=== PATIENT | male | born 1940 | race Caucasian/White ===

== ENCOUNTER 2017-10-17 12:35 | Inpatient (IN) | payer OTHER, MEDICARE ==
[~2017-10-17] VITALS: Ht 180.3 cm; Wt 74.8 kg
[~2017-10-17 12:35] MED LIST: NAPROXEN500 M2 PO; TYLENOL WITH C1 EACH PO
[2017-10-17] MEDS ORDERED: ATORVASTATIN CA10 M1 PO (13:08)
[2017-10-17] MEDS ORDERED: NEURONTIN300 M1 PO (13:08)
[2017-10-17] MEDS ORDERED: TOPROL XL25 M1 PO (13:09)
--- NOTE | 2017-10-17 13:22 | ED GENERAL ADULT ---
History of Present Illness General Chief Complaint: General Adult Stated Complaint: BIBA, HYPOTENTION Source: patient Exam Limitations: no limitations Vital Signs & Intake/Output Vital Signs & Intake/Output Vital Signs Date Time Temp Pulse Resp B/P B/P Pulse O2 O2 Flow FiO2 Mean Ox Delivery Rate 10/20 1451 99.3 68 18 158/74 90 Room Air 10/20 1352 99.5 77 20 152/60 10/20 1058 Room Air 10/20 0806 77 152/60 10/20 0630 99.5 77 20 152/60 96 10/19 2201 99.1 81 16 159/90 97 ED Intake and Output 10/20 0000 10/19 1200 Intake Total 650 200 Output Total 350 675 Balance 300 -475 Intake, Oral 650 200 Output, Urine 350 675 Allergies Coded Allergies: No Known Allergies (04/22/16) Triage Note: PT BIBA FROM HOME OF A FRIEND. PT STATES HE HAD TRIPLE A REPAIR ON 09/27/17. [facility] [place] Y[place]ER[place]. STATES THE [facility] CAME OUT TODAY AND HIS BP WAS 70. PT STATES HE WAS DIZZY AT THE TIME. PT IS NORMOTENSIVE AT THIS TIME Triage Nurses Notes Reviewed? yes Onset: Abrupt Duration: day(s): Timing: recent history Injury Environment: home No Modifying Factors: none HPI: 77-year-old male comes into the emergency room for further evaluation of increased confusion and inability to ambulate. Patient has been feeling lightheaded and dizzy at home. Patient is postop [facility]. He has had back pain issues prior to the surgery reports increased back pain since the surgery. He denies any chest pain or shortness of breath or vomiting. History of chronic kidney disease. The noticed that he seems to be increasingly confused lately. (Cas Prajapati) Reconcile Medications Atorvastatin Calcium 10 MG TABLET 0.5 TAB PO DAILY CHOLESTEROL (Reported) Ferrous Sulfate 325 MG (65 MG IRON) TABLET 1 TAB PO BID ELYSSA Folic Acid 1 MG TABLET 1 TAB PO DAILY Low folic acid Gabapentin (Neurontin) 300 MG CAPSULE 1 CAP PO BID NEUROPATHY (Reported) Lidocaine (Lidoderm) 5 % ADH..PATCH 1 PAT EXT DAILY BACK PAIN Metoprolol Succ XL (Toprol Xl) 50 MG TAB 50 MG PO DAILY blood pressure Midodrine HCl 5 MG TABLET 1 TAB PO DAILY orhtostatic Tramadol HCl 50 MG TABLET 1 TAB PO TIDPRN Back pain (Mame FLOREZ,Anand Voss) Past History Travel History Traveled to [place] past 21 day No Medical History Any Pertinent Medical History? 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 No (Cas Prajapati) Review of Systems Review of Systems Constitutional: Reports: no symptoms. EENTM: Reports: no symptoms. Respiratory: Reports: no symptoms. Cardiovascular: Reports: no symptoms. GI: Reports: no symptoms. Genitourinary: Reports: no symptoms. Musculoskeletal: Reports: see HPI. Skin: Reports: no symptoms. Neurological/Psychological: Reports: no symptoms. Hematologic/Endocrine: Reports: no symptoms. Immunologic/Allergic: Reports: no symptoms. All Other Systems: Reviewed and Negative (Cas Prajapati) Physical Exam Physical Exam General Appearance: well developed/nourished, no apparent distress, alert, awake Head: atraumatic, normal appearance Eyes: Bilateral: normal appearance, EOMI. Ears, Nose, Throat: normal ENT inspection, hearing grossly normal Neck: normal inspection Respiratory: normal breath sounds, no respiratory distress Cardiovascular: regular rate/rhythm Gastrointestinal: soft Back: normal inspection Extremities: normal inspection Neurologic/Psych: awake, alert, oriented x 3 Skin: intact, normal color Core Measures ACS in differential dx? No CVA/TIA Diagnosis: No Sepsis Present: No Sepsis Focused Exam Completed? No (Cas Prajapati) Progress Differential Diagnoses I considered the following diagnoses in my evaluation of the patient: CVA, TIA, cardiac arrhythmia, dehydration, endoleak from aortic aneurysm, electrolyte imbalance, cerebellar infarct, Plan of Care: Orders Procedure Date/time Status Therapeutic Activities 10/20 UNK Complete Therapeutic Exercise 10/20 UNK Complete Discharge Patient 10/20 UNK Active Laboratory Tests 10/20/17 0611: Anion Gap 11, Estimated GFR 28 L, BUN/Creatinine Ratio 18.7, CBC w Diff NO MAN DIFF REQ, RBC 3.17 L, MCV 82.1, MCH 27.1, MCHC 33.0, RDW 15.2 H, MPV 9.3, Gran % 68.6, Lymphocytes % 16.8 L, Monocytes % 10.7 H, Eosinophils % 3.5, Basophils % 0.4, Absolute Granulocytes 5.9, Absolute Lymphocytes 1.5, Absolute Monocytes 0.9 H, Absolute Eosinophils 0.3, Absolute Basophils 0 Diagnostic Imaging: Viewed by Me: CT Scan. Discussed w/RAD: CT Scan. Radiology Impression: PATIENT: PILI LINDSEY PRESENT AGE: 77 PATIENT ACCOUNT NO: [id number] : 39 LOCATION: [facility] ORDERING PHYSICIAN: Cas BOND SERVICE DATE: 10/17/17 EXAM TYPE: CAT - CT ABD & PELVIS W/O IV CONTRAS EXAMINATION: CT ABDOMEN AND PELVIS WITHOUT CONTRAST CLINICAL INFORMATION: Back pain. Recent surgery for abdominal aneurysm. History of appendectomy. COMPARISON: CT abdomen and pelvis 04/22/2016. TECHNIQUE : Multidetector volumetric imaging was performed from the superior aspect of the liver through the pubic symphysis. Sagittal and coronal reformatted images were obtained on the technologist's workstation. DLP: 291.97 mGy-cm FINDINGS: LUNG BASES: The visualized lung bases are unremarkable. LIVER, GALLBLADDER, AND BILIARY TREE: Stable left lobe hepatic cyst measuring 1.7 cm. No intrahepatic bile duct dilatation. Status post cholecystectomy. PANCREAS: Pancreatic atrophy. No inflammation or mass. No pancreatic duct dilatation. SPLEEN: Unremarkable. ADRENAL GLANDS: Unremarkable. KIDNEYS AND URETERS: Multiple renal cysts. Largest cyst at the upper pole of the right kidney measuring 5 cm. There is a pedunculated cyst at the mid upper pole measuring 1 cm. At the lower pole, there is a cortical cyst measuring 1.6 cm. There are vascular calcifications in the right and left renal sussy without calculus. No hydronephrosis. BLADDER: Unremarkable. GASTROINTESTINAL TRACT: There is diverticulosis of the left colon and sigmoid. No diverticulitis. No acute change of the bowel. No bowel obstruction. No bowel wall thickening or edema. Moderate volume of scattered stool in the colon. The appendix is not seen. The small bowel loops are unremarkable. ABDOMINAL WALL: No significant hernia is appreciated. LYMPH NODES: Normal. VASCULAR: Atherosclerotic vascular wall calcifications of the aorta and iliac vessels. There is a large fusiform aneurysm of aorta and aneurysm of the common iliac arteries. The aorta has been previously stented. There is a previous stent in the aorta seen on the CT scan of 04/22/[address] The patient has had a secondary stent now placed within the first stent in the aorta. There are also now stents in the SMA and in the right and left renal artery origins. The abdominal aorta has a maximal transverse dimension of 7.1 cm , axial image 38 (2). On the CT scan of 04/22/2016, the aneurysm measured 6.7 cm transverse. There are scattered atherosclerotic vascular wall calcifications of the aorta, unchanged since the prior CT scan. This includes a cloud-like amorphous area of calcification at the mid aortic aneurysmal stent at the anterior aneurysm, axial image 34 (2). This calcification was also present on the CT scan of 04/22/2016. No evidence of leak. No retroperitoneal or intraperitoneal hematoma. No surrounding inflammation. PELVIC VISCERA: Prostate measures 4.7 cm transverse. OSSEOUS STRUCTURES: Multilevel degenerative spondylosis of the spine with endplate spurs and facet joint arthrosis. Central depression of the superior endplate of L4, unchanged since the prior CT scan. IMPRESSION: Fusiform abdominal aortic aneurysm now measuring 7.1 cm in diameter. Stents are present in the aorta, SMA, renal arteries and common iliac arteries. No evidence of hematoma. DICTATED BY: Artem Powell MD DATE/TIME DICTATED:1507 BUSINESS DEVELOPMENT ASSISTANT:ALECIA DATE/TIME TRANSCRIBED:10/17/171507 CONFIDENTIAL, DO NOT COPY WITHOUT APPROPRIATE AUTHORIZATION. <Electronically signed in Other Vendor System> SIGNED BY: Artem Powell MD 10/17/17 1543, PATIENT: PILI LINDSEY PRESENT AGE: 77 PATIENT ACCOUNT NO: [id number] : 39 LOCATION: [facility] ORDERING PHYSICIAN: Cas BOND SERVICE DATE: 10/17/17 EXAM TYPE: CAT - CT HEAD WO IV CONTRAST EXAMINATION: CT HEAD WITHOUT CONTRAST CLINICAL INFORMATION: Altered mental status. COMPARISON: None. TECHNIQUE: Contiguous axial imaging was performed from the skull base to vertex without intravenous administration of contrast. DLP: 627 mGy-cm. FINDINGS: There is no intracranial hemorrhage, large infarction, or mass lesion. There is no extra-axial collection. There are chronic appearing lacunar infarcts within the bilateral basal ganglia and left thalamus. There is mild scattered hypoattenuation in the bilateral cerebral white matter, which is nonspecific but likely reflects small vessel disease. There is mild diffuse brain parenchymal volume loss with prominence of the ventricles and sulci. There is no evidence of hydrocephalus. There is mild paranasal sinus mucosal thickening/retention cysts. The mastoids and middle ear cavities are clear. 10/16/2017 IMPRESSION: 1. No acute intracranial abnormality identified. 2. Chronic appearing bilateral basal ganglia and left thalamic lacunar infarcts. 3. Mild small vessel ischemic changes in a background of mild brain parenchymal volume loss. DICTATED BY: Latoya Galindo MD DATE/TIME DICTATED:10/17/171451 BUSINESS DEVELOPMENT ASSISTANT:ALECIA DATE/TIME TRANSCRIBED:1451 CONFIDENTIAL, DO NOT COPY WITHOUT APPROPRIATE AUTHORIZATION. < Electronically signed in Other Vendor System> SIGNED BY: Latoya Galindo MD 10/17/171458 Initial ED EKG: normal sinus rhythm, rate (81), nonspecific ST T wave chg (Cas Prajapati) Departure Departure Disposition: STILL A PATIENT Condition: Stable Clinical Impression Primary Impression: Altered mental status Secondary Impressions: Back pain, Multifactorial gait disorder Referrals: Patient Has No Primary Care Dr Departure Forms: Customer Survey General Discharge Information Admission Note Spoke With: Farrah Bell MD Documentation of Exam: Documentation of any treatments & extenuating circumstances including Concerns Regarding Discharge (functional status, medication knowledge or non-compliance, living conditions, etc.) that warrant an admission rather than observation: Patient unsteady on his feet here. He required the nurse and the MST to hold him steady. Fall risk. Unclear as to etiology of altered mental status. MRI of brain. Neurology consultation. Cardiac consultation. Cardiac telemetry to monitor for any arrhythmias. (Cas Prajapati) Departure Prescriptions: Current Visit Scripts Ferrous Sulfate 1 TAB PO BID #60 TAB Folic Acid 1 TAB PO DAILY #30 TAB Midodrine HCl 1 TAB PO DAILY #30 TAB Lidocaine (Lidoderm) 1 PAT EXT DAILY #7 PAT Metoprolol Succ XL (Toprol Xl) 50 MG PO DAILY #30 TAB Tramadol HCl 1 TAB PO TIDPRN #21 TAB PA/[employer] Co-Sign Statement Statement: ED Attending supervision documentation- [x] I saw and evaluated the patient. I have also reviewed all the pertinent lab results and diagnostic results. I agree with the findings and the plan of care as documented in the PA's/[employer]'s documentation. Patient presents for evaluation of hypotension. Physical examination reveals an awake and alert gentleman with a nonfocal neurologic examination and normal heart lungs. [] I have reviewed the ED Record and agree with the PA's/[employer]'s documentation. [] Additions or exceptions (if any) to the PAs/[employer]'s note and plan are summarized below: [] (Mame FLOREZ,Anand Voss) Critical Care Note Critical Care Note Critical Care Time: non-applicable (Cas Prajapati) ED Attending Observation Initial Observation Note: I have seen and personally examined PILI LINDSEY on 10/17/17 at 1833. I agree with the current emergency department documentation. The disposition (admission or discharge) is uncertain at this time, he needs a period of observation for the following reason(s): The ED Nurse caring for this patient has been personally informed as to what the patient is being observed for. (Cas Prajapati)
[2017-10-17 13:44] LABS: ABSOLUTE BASOPHIL COUNT 0.1 /CUMM (0.0-0.2); ABSOLUTE EOSINOPHIL COUNT 0.1 /CUMM (0.0-0.7); ABSOLUTE LYMPH COUNT 1.1 /CUMM (1.2-3.4); BASOPHIL % 0.6 % (0.0-2.0); EOSINOPHIL % 1.4 % (0-5); GRANULOCYTE % 75.6 % (42.2-75.2); MEAN CORPUSCULAR HGB 27.2 PG (27.0-31.0); MEAN CORPUSCULAR VOLUME 82.6 FL (80.0-94.0); MEAN PLATELET VOLUME 8.2 FL (7.4-10.4); PLATELET COUNT 318 /CUMM (130-400); RBC DISTRIBUTION WIDTH 15.4 % (11.5-14.5); RED BLOOD CELL CT 3.39 /CUMM (4.70-6.10); WHITE BLOOD CELL COUNT 9.2 /CUMM (4.8-10.8)
[2017-10-17 13:53] LABS: PT 12.8 SEC (9.4-12.5); PTT 25 SEC (25-37)
--- NOTE | 2017-10-17 14:59 | CT SCAN REPORT ---
EXAMINATION: CT HEAD WITHOUT CONTRAST CLINICAL INFORMATION: Altered mental status. COMPARISON: None. TECHNIQUE: Contiguous axial imaging was performed from the skull base to vertex without intravenous administration of contrast. DLP: 627 mGy-cm. FINDINGS: There is no intracranial hemorrhage, large infarction, or mass lesion. There is no extra-axial collection. There are chronic appearing lacunar infarcts within the bilateral basal ganglia and left thalamus. There is mild scattered hypoattenuation in the bilateral cerebral white matter, which is nonspecific but likely reflects small vessel disease. There is mild diffuse brain parenchymal volume loss with prominence of the ventricles and sulci. There is no evidence of hydrocephalus. There is mild paranasal sinus mucosal thickening/retention cysts. The mastoids and middle ear cavities are clear. 10/16/2017 IMPRESSION: 1. No acute intracranial abnormality identified. 2. Chronic appearing bilateral basal ganglia and left thalamic lacunar infarcts. 3. Mild small vessel ischemic changes in a background of mild brain parenchymal volume loss.
--- NOTE | 2017-10-17 15:43 | CT SCAN REPORT ---
EXAMINATION: CT ABDOMEN AND PELVIS WITHOUT CONTRAST CLINICAL INFORMATION: Back pain. Recent surgery for abdominal aneurysm. History of appendectomy. COMPARISON: CT abdomen and pelvis 04/22/2016. TECHNIQUE: Multidetector volumetric imaging was performed from the superior aspect of the liver through the pubic symphysis. Sagittal and coronal reformatted images were obtained on the technologist's workstation. DLP: 291.97 mGy-cm FINDINGS: LUNG BASES: The visualized lung bases are unremarkable. LIVER, GALLBLADDER, AND BILIARY TREE: Stable left lobe hepatic cyst measuring 1.7 cm. No intrahepatic bile duct dilatation. Status post cholecystectomy. PANCREAS: Pancreatic atrophy. No inflammation or mass. No pancreatic duct dilatation. SPLEEN: Unremarkable. ADRENAL GLANDS: Unremarkable. KIDNEYS AND URETERS: Multiple renal cysts. Largest cyst at the upper pole of the right kidney measuring 5 cm. There is a pedunculated cyst at the mid upper pole measuring 1 cm. At the lower pole, there is a cortical cyst measuring 1.6 cm. There are vascular calcifications in the right and left renal sussy without calculus. No hydronephrosis. BLADDER: Unremarkable. GASTROINTESTINAL TRACT: There is diverticulosis of the left colon and sigmoid. No diverticulitis. No acute change of the bowel. No bowel obstruction. No bowel wall thickening or edema. Moderate volume of scattered stool in the colon. The appendix is not seen. The small bowel loops are unremarkable. ABDOMINAL WALL: No significant hernia is appreciated. LYMPH NODES: Normal. VASCULAR: Atherosclerotic vascular wall calcifications of the aorta and iliac vessels. There is a large fusiform aneurysm of aorta and aneurysm of the common iliac arteries. The aorta has been previously stented. There is a previous stent in the aorta seen on the CT scan of 04/22/[address] The patient has had a secondary stent now placed within the first stent in the aorta. There are also now stents in the SMA and in the right and left renal artery origins. The abdominal aorta has a maximal transverse dimension of 7.1 cm, axial image 38 (2). On the CT scan of 04/22/2016, the aneurysm measured 6.7 cm transverse. There are scattered atherosclerotic vascular wall calcifications of the aorta, unchanged since the prior CT scan. This includes a cloud-like amorphous area of calcification at the mid aortic aneurysmal stent at the anterior aneurysm, axial image 34 (2). This calcification was also present on the CT scan of 04/22/2016. No evidence of leak. No retroperitoneal or intraperitoneal hematoma. No surrounding inflammation. PELVIC VISCERA: Prostate measures 4.7 cm transverse. OSSEOUS STRUCTURES: Multilevel degenerative spondylosis of the spine with endplate spurs and facet joint arthrosis. Central depression of the superior endplate of L4, unchanged since the prior CT scan. IMPRESSION: Fusiform abdominal aortic aneurysm now measuring 7.1 cm in diameter. Stents are present in the aorta, SMA, renal arteries and common iliac arteries. No evidence of hematoma.
--- NOTE | 2017-10-17 18:26 | History & Physical ---
Serafin Wilcox 10/17/17 1825: General Information and HPI History of Present Illness: Mr. 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 He reported yesterday he felt lightheaded and fell backwards while trying to get out of bed. This morning a visiting nurse reported he had severe hypotension and called EMS. Patient reported he had a AAA repair 09/27/[address] Norman at the [facility] without complications. Then on 09/29/17 he was found to have severe hypotension and abdominal distention. He was told it was a side effect from medications. An NGT was placed for 24 hours that drained a large volume of fluid. He reports 400 mL was left in the abdomen. He was discharged 10/03/17 and noticed he had BLE weakness and worsening back pain. He was placed on a prednisone taper for his persistent back pain by his PCP. He reports a poor appetite and hydration because he was unable to get food or liquids down easily. He is noncompliant with his aspirin. He ambulates without a walker and performs his ADLs. He also reports home PT services. He denies fever, nausea, vomiting, trauma, urinary or bowel symptoms. Allergies/Medications Allergies: Coded Allergies: No Known Allergies (04/22/16) Home Med list Atorvastatin Calcium 10 MG TABLET 0.5 TAB PO DAILY CHOLESTEROL (Reported) Gabapentin (Neurontin) 300 MG CAPSULE 1 CAP PO BID NEUROPATHY (Reported) Metoprolol Succ XL (Toprol XL) 25 MG TAB 1 TAB PO DAILY HEART (Reported) Past History Travel History Traveled to [place] past 21 day No Medical History Neurological: CVA EENT: NONE Cardiovascular: hypertension Respiratory: NONE Gastrointestinal: constipation Hepatic: CHOLY,APPY Renal: chronic kidney disease Musculoskeletal: L4 DISC Psychiatric: NONE Endocrine: NONE Blood Disorders: NONE Cancer(s): NONE RELIEF DRILLER/Reproductive: NONE Surgical History Surgical History: aaa REPAIR RIGHT ENDARTERECTOMY Review of Systems Review of Systems Constitutional: Reports: see HPI. Exam & Diagnostic Data Last 24 Hrs of Vital Signs/I&O Vital Signs Date Time Temp Pulse Resp B/P B/P Pulse O2 O2 Flow FiO2 Mean Ox Delivery Rate 10/17 1744 98.3 74 20 136/65 99 Room Air 10/17 1547 98.2 76 18 160/75 98 Room Air 10/17 1448 97.4 92 20 167/98 98 Room Air 10/17 1237 97.2 78 20 137/64 100 Room Air Intake & Output 10/17 1600 10/17 0800 10/17 0000 Intake Total Output Total Balance Patient 160 lb Weight Weight Reported by Patient Measurement Method Physical Exam General Appearance Alert, Oriented X3, Cooperative HEENT Atraumatic, PERRLA, EOMI, dry mucous membranes Neck Supple, No JVD, No thryomegaly Cardiovascular Regular Rate, Normal S1, Normal S2, No Murmurs Lungs Clear to Auscultation, Normal Air Movement Abdomen Normal Bowel Sounds, Soft, No Tenderness Extremities No Edema Vascular Femoral pulses palpable, BL femoral healed incisions without drainage, hematoma or warmth Rectal Guiac Negative, decreased rectal tone Last 24 Hrs of Labs/Tony: Laboratory Tests 10/17/17 1336: Anion Gap 11, Estimated GFR 25 L, BUN/Creatinine Ratio 20.4, Glucose 112 H, Calcium 8.7, Total Bilirubin 0.2, AST 36, ALT 78 H, Alkaline Phosphatase 83, Troponin I 0.04, Total Protein 6.5, Albumin 3.2 L, Globulin 3.3, Albumin/ Globulin Ratio 1.0 L, PT 12.8 H, INR 1.22 H, APTT 25, CBC w Diff NO MAN DIFF REQ, RBC 3.39 L, MCV 82.6, MCH 27.2, MCHC 33.0, RDW 15.4 H, MPV 8.2, Gran % 75.6 H, Lymphocytes % 11.6 L, Monocytes % 10.8 H, Eosinophils % 1.4, Basophils % 0.6, Absolute Granulocytes 7.0 H, Absolute Lymphocytes 1.1 L, Absolute Monocytes 1.0 H, Absolute Eosinophils 0.1, Absolute Basophils 0.1 Diagnostic Data EKG Results 10/17/17 13:40 SR, nonspecfic ST/T changes HR 81 QTc 451 Other Results 10/17/17-1322 CT HEAD WO IV CONTRAST IMPRESSION: 1. No acute intracranial abnormality identified. 2. Chronic appearing bilateral basal ganglia and left thalamic lacunar infarcts. 3. Mild small vessel ischemic changes in a background of mild brain parenchymal volume loss. 10/17/17-1322 CT ABD & PELVIS W/O IV CONTRAST IMPRESSION: Fusiform abdominal aortic aneurysm now measuring 7.1 cm in diameter. Stents are present in the aorta, SMA, renal arteries and common iliac arteries. No evidence of hematoma. Assessment/Plan Assessment: Mr. Santa is a 77-year-old male with a past medical history significant for nicotine dependence (1/2 PPD x > 40 yrs), AAA repair with multiple stent placement, CVA3, CK D, HTN, HLD, BL CEA (3 yrs ago), chronic back pain who presents to the ED with severe hypotension, weakness, back pain and poor appetite and hydration. Severe hypotension most likely 2/2 dehyration * Admit to telemetry for further evaluation and monitoring * Cardiology consult with Dr. Keller as per patient's preference * Gentle hydration * Orthostatic vitals * Panculture * Check a.m. cortisol levels * ECHO to r/o SHD or valvular abnormalities * Serial Trop/ECG to r/o ACS Chronic back pain with recent AAA repair CT head showed chronic infarct and microvascular changes. CT ABD/pel showed fusiform abdominal aortic aneurysm now measuring 7.1 cm in diameter. Stents are present in the aorta, SMA, renal arteries and common iliac arteries. No evidence of hematoma. On physical exam patient exhibited decreased rectal tone. * CT C-T-L-spine to r/o acute fracture * Consider MRI spine to r/o epidural abscess, AA rupture or any acute pathology * Consider MRI brain to r/o acute CVA * Aortic US to evaluate AAA * Neurology consult * Vascular consult * Obtain records from [facility] * Pain pathway * PT evaluation Normocytic anemia * Fe, TIBC, Ferritin, Transferrin sat * Guaiac all stools Hx of CVA * Neurochecks q4 * NPO pending swallow evaluation DVT ppx: ALPS Code: FULL As Ranked By This Provider Problem List: 1. Back pain 2. Multifactorial gait disorder Core Measures/Misc (05/14) Acute Coronary Syndrome ACS Diagnosis: No Congestive Heart Failure Congestive Heart Failure Diagnosis No Cerebrovascular Accident CVA/TIA Diagnosis: No VTE (View Protocol) VTE Risk Factors Age>40 No Mechanical VTE Prophylaxis d/t N/A MechProphylax Ordered No VTE Pharm Prophylaxis d/t NA PharmProphylax ordered Sepsis (View protocol) Sepsis Present: No Aliyah Valderrama MD 10/17/172051: Resident Review Statement Resident Statement: examined this patient, discussed with internal review and audit compliance, agreed with internal review and audit compliance, discussed with family Other Findings: Patient is a 77-year-old male with significant past medical history of multiple CVA, hypertension, chronic kidney disease (diagnosed 3 years ago was on steroid therapy does not know the diagnosis, does not need a dialysis), chronic back pain, recently underwent AAA repair(09/27/2017), presented with an episode of hypotension, diagnosed by VNA coming to home, and sent to [facility] for further evaluation and management. Most of the history is taken from patient's, next of kin Ms. Cortez. According to her patient take most of his treatment from the [facility]. He underwent AAA repair on 09/27/2017. The course was complicated by abdomen distention needed NG tube placement for 24 hours. He was discharged on September 29. At the time of discharge he was still having, residual abdominal distention. He felt improved for a week. But since this weekend he was feeling very cold, freezing. His appetite has been decreased. Yesterday he was feeling very woozy and even fall on his back on the bed. Before and afterwards he did not had any signs of palpitation, chest pain, headache, nausea, vomiting, unconsciousness, incontinence of stool and urine. He did not hit his head. He slept well overnight and even took his breakfast. The VNA who came to their home to check his blood pressure and she found that blood pressure was very low in the range of 70s so she called the ambulance and sent him to . Of note patient was having, constant back pain which got worse recently. According to the he was having trouble walking secondary to pain in the back. According to him he was undergoing treatment with Dr. Negrete. He recently prescribed him a Dose wallace of prednisone for total 5 days. He was also given tablet gabapentin 300 mg twice daily which yesterday he took once at the time total 600 mg. Medication -he is on atorvastatin, gabapentin, metoprolol, senna. He does not take aspirin. Personal history-he still smoking half pack per day, since the age of 14. He quit alcohol 3 years ago and denies for any drug abuse. Past medical history - History of AAA repair 09/27/2017 History of CVA x 2 (first time he cannot write, second time he was having weakness in both of his lower legs) History of right-sided carotid artery stent -3 years ago History of hypertension History of chronic kidney disease -diagnosed 2 years ago, was on high-dose steroid, does not know his diagnosis, does not need a diagnosis History of degenerative disc disease History of appendicectomy, History of cholecystectomy History of chronic constipation Primary care provider-Dr. Lo CODE STATUS ED course - Vital signs-temperature 97.2, pulse 78, respiratory rate 20, blood pressure 137/ 64, SPO2 100% on room air. Blood workup showed-hemoglobin 9.2, hematocrit 28.0, platelet count 318, sodium 141, potassium 4.5, chloride 105, BUN 51, creatinine 2.5, GFR 25, glucose 112, total bilirubin 0.2, AST 36, ALT 78, alkaline phosphatase 83, troponin I0.04, total protein 6.5, albumin 3.2, globulin 3.3, albumin/globulin ratio 1.0, PT/INR 12.8/1.22, U tox is negative, UA was showing 30 protein. EKG showed-heart rate 81, QTc 451, normal sinus rhythm, no ST-T wave changes. CT scan of the head-no acute intracranial abnormality. Chronic bilateral basal ganglia and left thalamic lacunar infarct, mild small vessel ischemic changes. CT abdomen and pelvis without contrast - Fusiform abdominal aortic aneurysm now measuring 7.1 cm in diameter. Stents are present in the aorta, SMA, renal arteries and common iliac arteries. No evidence of hematoma. Assessment and plan - Hypotension - Patient was having episodes of sweating/freezing. He was also feeling woozy and he lost his appetite and even had falls without any trauma. We will rule out for source of infection. He also had multiple course of steroids we will rule out for cortisol insufficiency. * IV normal saline -1000cc * Orthostatic daily * Rapid flu test, webb cultures, * Serum cortisol a.m./p.m. * Will follow cardiology consult Chronic back pain He has history of back pain and ? degenerative disc disease / ? Prolapse multiple disc. Recently his pain got worse after surgery, but he denies any new neurological deficit, stool incontinence, weakness in his legs. He was on multiple course of steroids so probably osteoporosis leading to fracture?. * We did rectal exam -which showed normal rectal tone and normal sensation in perirectal area (ruled out cauda equina syndrome) * We will do CT lumbar spine to rule out fracture * Neuro check every 4 hourly * We will do U tox -2 rule out any opioid abuse. * We will give pain medication according to the pain scale -mild pain-Lidoderm patch; moderate pain-tramadol; severe pain -Percocet 5 mg Evaluation for stroke According to the family he was also having new change in the volume of the speech, an episode of choking and coughing while eating. We will do MRI of the brain after confirming that the stent he is having is compatible for MRI. * We will get the records from the [facility]. * We will follow neurology recommendation * We will keep him n.p.o. * We will do a formal swallow evaluation * Keep head end of the bed elevated Rule out pneumonia -difficulty in the breathing Patient was having cough and difficulty in breathing since couple of days. He is having history of loss of appetite, feeling more cold. * Will do CT scan of the chest * We will do rapid flu test * We will do pancultures * We will do lower respiratory tract cultures * If needed then we will start patient on antibiotic Fusiform abdominal aortic aneurysm 7.1 cm in diameter - He called to on-call vascular surgery - Dr Piter Sawant; he wanted to have CT abdoman and pelvis with contrast, we cannot do it because patient was having CKD. He told that patient is hemodynamically stable and no active intervention is required at present but if patient become unstable, then call noncardiovascular surgery immediately. Anemia of chronic disease - His hemoglobin is 9.2. His fecal for occult blood was negative. * Advised for serum iron, B12, folic acid, thyroid panel. Please get the records from [facility] and get the medication list from [facility] at [place]. CODE STATUS -full code DVT prophylaxis-heparin Diet -n.p.o. pending swallow evaluation Scottie FLOREZ, [facility] 10/17/17 2314: Attending MD Review Statement Attending Statement Attending Statement: examined this patient, discuss w/resident/PA/GEOLOGY FACULTY MEMBER, agreed w/resident/PA/GEOLOGY FACULTY MEMBER, discussed with family, reviewed images, amended to note Attending Assessment/Plan: 77 yo M smoker with h/o chronic back pain, HTN, CVA x 3 (with resultant LE weakness, slow thought process), s/p CEA, CKD, recently underwent AAA repair with stents at the [facility] ([place] on Sep 27, hospital course was complicated by ileus and subsequently discharged home on Oct 03, is sent in from home after visiting nurse noted patient to be hypotensive to SBP 70's. Patient has been having poor PO intake, feeling weak dizzy with gradual decline in functional status and gait instability since recent surgery. At baseline prior to surgery, patient was able to perform all ADLs, however he requires assistance for most now. When he tried to get up yesterday, he felt very dizzy, his legs gave out and he fell back on to the bed, no syncope or head strike. He reports no urinary or fecal incontinence. He has a chronic smoker's cough. His back pain has exacerbated today, he is on gabapentin for pain (300 mg BID) but took it altogether last night. Family reports that he has no confusion or disorientation. He was also prescribed short course of prednisone for his back pain without relief. Vitals: Tmax 100.2, HR 70-90's, sats 168/78, sats 96% RA. Exam: awake but lethargic, in mild distress due to pain, dry mucous membranes, power is 4/5 in lower extremities, cranial nerves intact otherwise nonfocal exam. Rectal tone was reassessed by resident no loss of rectal tone, guaiac negative. Back: point tenderness in lower back L3-4 region. Bilateral groin catheter site CDI. Labs: H/H 9.2/28, INR 1.22, BUN 51, creat 2.5 (Baseline 2.2), trop neg. UA clear , Utox neg. CT abd/pelvis without contrast: fusiform abdominal aortic aneurysm 7.1 cm diameter, stents present in aorta, SMA, renal arteries and common iliac arteries , no hematoma. CT head: chronic appearing bilateral basal ganglia and left thalamic lacunar infarcts. Chest CT: emphysematous change. CT Lumbar spine chronic compression fracture at L4 with 50% height loss, degenerative spondylotic changes L5-S1 with mass effect on foraminal segments of bilateral L5 nerve roots. EKG: sinus rhythm, no acute changes. Assessment and plan: 1. Hypotension multifactorial from poor PO intake while on antihypertensive meds - now improved. 2. Recent AAA repair with aneurysm now measuring 7.1 cm 3. Acute worsening of chronic back pain 4. Gait instability, unable to ambulate degenerative disc disease with mass effect on L5 nerve roots 5. Normocytic anemia 6. H/o CVA and HTN 7. CKD stage 4 - Admit to Telemetry - Monitor for arrhythmias - Neurochecks Q4 - Serial EKG and troponin to rule out ACS - Panculture - Gentle hydration - Check orthostats - Check AM cortisol levels - Monitor off antibiotics no clear source of infection/sepsis - Obtain Echo and Cardio consult (Dr. Keller) - family requests - Obtain records from [facility] - Vascular consult for the AAA it is difficult to exclude a leak as CT was without contrast. - Will get ultrasound of aorta as suggested by Vascular to rule out a possible leak. Patient is hemodynamically stable at this point. - NPO, swallow eval - Pain management with IV tylenol, lidoderm patch and tramadol. Percocet for severe pain. - Given previous h/o stroke, there is concern for new stroke will get MRI brain. - MRI lumbar spine (patient is claustrophobic, may need benzos prior to MRI). Also, please confirm if his stents are MRI compatible prior to the test. - Smoking cessation counseling, nicotine patch - He was recently on short course of prednisone. - Consult Neurology and Neurosurgery (CT findings of mass effect on L5 nerve roots) - No evidence of cord compression. - TRC nebs, no need for steroids - Work up anemia guaiac all stools, iron studies, retic count, B12, folic acid. - PT eval Please confirm CMR in AM and resume meds accordingly. DVT ppx Alps. Full code.
--- NOTE | 2017-10-17 21:27 | CT SCAN REPORT ---
EXAMINATION: CT LUMBAR SPINE WITHOUT CONTRAST CLINICAL INFORMATION: Rule out compression fracture. Spine tenderness and back pain. COMPARISON: None. TECHNIQUE: Contiguous helical images of the lumbar spine were obtained without IV contrast. Multiplanar reconstructions were performed. FINDINGS: The lumbar alignment is maintained without evidence of listhesis. There is redemonstration of a chronic compression fracture at L4 with 50% height loss and without interval change since 04/22/2016. There is no significant posterior retropulsion or spinal canal stenosis related to this fracture. No acute fracture is seen. There is intervertebral disc height loss at L5-S1. There is disc bulging at L4-L5 which in combination with bilateral facet arthropathy results in mild bilateral neural foraminal stenosis but no significant spinal canal stenosis. At L5-S1 there is diffuse disc bulging and posterior annular ossification which in combination with facet arthropathy contributes to severe right and moderate left neural foraminal stenosis with mass effect on the foraminal segments of the bilateral L5 nerve roots. The patient's known bifurcated aortoiliac stent is partially imaged but is fully described on the prior CT of the abdomen and pelvis performed earlier today. There is a right renal cyst. IMPRESSION: 1. No acute lumbar spine fracture or traumatic malalignment identified. 2. Redemonstration of chronic compression fracture at L4 with 50% height loss. 3. Multilevel degenerative spondylotic changes most advanced at L5-S1 where there is mass effect on the foraminal segments of the bilateral L5 nerve roots.
--- NOTE | 2017-10-17 22:23 | CT SCAN REPORT ---
EXAMINATION: CT CHEST WITHOUT CONTRAST CLINICAL INFORMATION: Cough. Smoker. COMPARISON: None TECHNIQUE: Multidetector volumetric CT imaging of the chest was done. Axial MIP volume rendering provided. Sagittal and coronal reformatted images were obtained. DLP: 213.24 mGy-cm FINDINGS: LUNGS: Subpleural emphysematous changes of lungs which is primarily affects the upper lobes. No acute infiltrate. No interstitial or reticular opacity. Small focus of pleural thickening along the minor fissure anteriorly, sagittal image 95. No specific lung nodule. MEDIASTINUM: No mediastinal mass or significant lymphadenopathy. There is vascular wall calcifications of aorta and the origin of great vessels. There is coronary artery calcifications. PLEURA: There is no pleural effusion. No pleural mass or thickening. AXILLA: No lymphadenopathy. UPPER ABDOMEN: 2 cm hypodensity left lobe of liver renal cyst upper pole right kidney. Vascular stent in the proximal aorta. OSSEOUS STRUCTURES: Degenerative spondylosis of dorsal spine with endplate spurring of the vertebrae. IMPRESSION: No acute change of chest.
[2017-10-17 22:30] VITALS: BP 168/78
--- NOTE | 2017-10-17 22:59 | Cons- Vascular Surgery ---
General Information and HPI Consulting Request Date of Consult: 10/17/17 Requested By: Scottie FLOREZ,Nilsa Reason for Consult: SP AAA REPAIR WITH STENTS NOW HYPOTENSIVE WITH BACK PAIN Source of Information: patient History of Present Illness: PT IS A 77YO M WITH MULT MEDICAL PROBLEMS PRESENTED TO ED TODAY AFTER A VISITING NURSE FOUND HIM TO BE VERY HYPOTENSIVE, DIZZY AND WITH WEAKNESS IN BOTH LOWER EXTREMITIES. STATES THAT WHEN HE TRIED TO GET UP YESTERDAY, HIS LEGS GAVE OUT AND HE FELL BACK ON TO THE BED AND FELT VERY DIZZY. HE SAYS HE HASNT HAD GREAT PO LATELY. PT STATES THAT HE HAD AN ELECTIVE REPAIR OF A AAA IN THE [place] ON SEPTEMBER 27 WITH A POST-OP COURSE COMPLICATED BY WHAT SOUNDS LIKE AN ILEUS VOIDING NORMALLY. LAST BM WAS YESTERDAY, NONBLOODY. DENIES FEVERS DENIES N/V. Allergies/Medications Allergies: Coded Allergies: No Known Allergies (04/22/16) Home Med List: Atorvastatin Calcium 10 MG TABLET 0.5 TAB PO DAILY CHOLESTEROL (Reported) Gabapentin (Neurontin) 300 MG CAPSULE 1 CAP PO BID NEUROPATHY (Reported) Metoprolol Succ XL (Toprol XL) 25 MG TAB 1 TAB PO DAILY HEART (Reported) Past History Medical History Blood Transfusion Hx: Yes Neurological: CVA EENT: NONE Cardiovascular: hypertension Respiratory: NONE Gastrointestinal: constipation Hepatic: CHOLY,APPY Renal: chronic kidney disease Musculoskeletal: L4 DISC Psychiatric: NONE Endocrine: NONE Blood Disorders: NONE Cancer(s): NONE 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 Home Services at Home: Nursing Smoking Status: Current Everyday Smoker Review of Systems Review of Systems: PER HPI Review of Systems Constitutional: Reports: see HPI, weakness. Denies: fever. Cardiovascular: Denies: chest pain, palpitations. Respiratory: Denies: short of breath. GI: Denies: abdominal pain, constipation, diarrhea, nausea, bloody stool, vomiting. Genitourinary: Denies: dysuria, hematuria. Musculoskeletal: Reports: back pain. Neurological/Psychological: Denies: numbness. Exam & Diagnostic Data Vital Signs and I&O Vital Signs Date Time Temp Pulse Resp B/P B/P Pulse O2 O2 Flow FiO2 Mean Ox Delivery Rate 10/17 2229 98.8 79 20 168/78 96 Room Air 02/20 2230 96 Room Air 10/17 2019 100.2 80 18 169/74 97 Room Air 10/17 1744 98.3 74 20 136/65 99 Room Air 10/17 1547 98.2 76 18 160/75 98 Room Air 10/17 1448 97.4 92 20 167/98 98 Room Air 10/17 1237 97.2 78 20 137/64 100 Room Air Intake & Output 10/17 1600 10/17 0800 10/17 0000 10/16 0810/16 0000 Intake Total Output Total Balance Patient 160 lb Weight Weight Reported by Patient Measurement Method Physical Exam: GEN-NAD, APPEARS SOMEWHAT SOB HEENT-ATRAUMATIC, EOMI, MMM RESP-CLEAR CARDIO-RRR ABD-ND, SOFT, NT, +BS EXT- WARM AND DRY, 2+ RADIAL, 2+ FEMORAL, 2+ PT PULSE BILATERALLY SKIN-WARM AND DRY Last 24 Hours of Labs: Laboratory Tests 10/17 Chemistry Iron (49 - 181 ug/dL) 14 L TIBC (261 - 462 ug/dL) 305 Ferritin (17.9 - 464 ng/mL) 103.0 Vitamin B12 (239 - 931 pg/mL) 664 Folate (2.76 - 20.0 ng/mL) Pending Cortisol PM Sample (1.7 - 14.1) 15.2 H Cancelled Toxicology Methadone Screen Cancelled Barbiturate Screen Cancelled Ur Phencyclidine Scrn Cancelled Amphetamines Screen Cancelled U Benzodiazepines Scrn Cancelled Urine Cocaine Screen Cancelled Urine Cannabis Screen Cancelled Urines Urine Color Cancelled Urine Clarity Cancelled Urine pH Cancelled Ur Specific [place] Cancelled Urine Protein Cancelled Urine Ketones Cancelled Urine Nitrite Cancelled Urine Bilirubin Cancelled Urine Urobilinogen Cancelled Ur Leukocyte Esterase Cancelled Ur Microscopic Cancelled Urine Hemoglobin Cancelled Urine Glucose Cancelled 10/17 1336 Chemistry Sodium (137 - 145 mmol/L) 141 Potassium (3.5 - 5.1 mmol/L) 4.5 Chloride (98 - 107 mmol/L) 105 Carbon Dioxide (22 - 30 mmol/L) 26 Anion Gap (5 - 16) 11 BUN (9 - 20 mg/dL) 51 H Creatinine (0.7 - 1.2 mg/dL) 2.5 H Estimated GFR (>60 ml/min) 25 L BUN/Creatinine Ratio (7 - 25 %) 20.4 Glucose (65 - 99 mg/dL) 112 H Calcium (8.4 - 10.2 mg/dL) 8.7 Total Bilirubin (0.2 - 1.3 mg/dL) 0.2 AST (17 - 59 U/L) 36 ALT (21 - 72 U/L) 78 H Alkaline Phosphatase (< 127 U/L) 83 Troponin I (<0.11 ng/ml) 0.04 Total Protein (6.3 - 8.2 g/dL) 6.5 Albumin (3.5 - 5.0 g/dL) 3.2 L Globulin (1.9 - 4.2 gm/dL) 3.3 Albumin/Globulin Ratio (1.1 - 2.2 %) 1.0 L Coagulation PT (9.4 - 12.5 SEC) 12.8 H INR (0.90 - 1.17) 1.22 H APTT (25 - 37 SEC) 25 Hematology CBC w Diff NO MAN DIFF REQ WBC (4.8 - 10.8 /CUMM) 9.2 RBC (4.70 - 6.10 /CUMM) 3.39 L Hgb (14.0 - 18.0 G/DL) 9.2 L Hct (42 - 52 %) 28.0 L MCV (80.0 - 94.0 FL) 82.6 MCH (27.0 - 31.0 PG) 27.2 MCHC (33.0 - 37.0 G/DL) 33.0 RDW (11.5 - 14.5 %) 15.4 H Plt Count (130 - 400 /CUMM) 318 MPV (7.4 - 10.4 FL) 8.2 Gran % (42.2 - 75.2 %) 75.6 H Lymphocytes % (20.5 - 51.1 %) 11.6 L Monocytes % (1.7 - 9.3 %) 10.8 H Eosinophils % (0 - 5 %) 1.4 Basophils % (0.0 - 2.0 %) 0.6 Absolute Granulocytes (1.4 - 6.5 /CUMM) 7.0 H Absolute Lymphocytes (1.2 - 3.4 /CUMM) 1.1 L Absolute Monocytes (0.10 - 0.60 /CUMM) 1.0 H Absolute Eosinophils (0.0 - 0.7 /CUMM) 0.1 Absolute Basophils (0.0 - 0.2 /CUMM) 0.1 Toxicology Urine Opiates Screen (>2000 NG/ML) < 100.00 Methadone Screen (>300 NG/ML) < 40 Barbiturate Screen (>200 NG/ML) < 60 Ur Phencyclidine Scrn (>25 NG/ML) < 6.00 Amphetamines Screen (>1000 NG/ML) < 100 U Benzodiazepines Scrn (>200 NG/ML) < 85 Urine Cocaine Screen (>300 NG/ML) < 50 Urine Cannabis Screen (>50 NG/ML) < 5.00 Urines Urinalysis MOD H Urine Color (YEL,AMB,STR) YEL Urine Clarity (CLEAR) CLEAR Urine pH (5.0 - 8.0) 6.0 Ur Specific [place] (1.001 - 1.035) 1.025 Urine Protein (NEG,<30 MG/DL) 30 H Urine Ketones (NEG) NEG Urine Nitrite (NEG) NEG Urine Bilirubin (NEG) NEG Urine Urobilinogen (0.1 - 1.0 EU/dl) 0.2 Ur Leukocyte Esterase (NEG) NEG Ur Microscopic SEDIMENT EXAMINED Urine RBC (0 - 5 /HPF) 1-3 Urine WBC (0 - 2 /HPF) RARE Ur Epithelial Cells (NONE,FEW) RARE Hyaline Casts (0/LPF) RARE H Urine Mucus (FEW,NONE) FEW Urine Hemoglobin (NEG) NEG Urine Glucose (N MG/DL) NEG Imaging Results: EXAM TYPE: CAT - CT LUMB SPINE WO IV CONTRAST EXAMINATION: CT LUMBAR SPINE WITHOUT CONTRAST CLINICAL INFORMATION: Rule out compression fracture. Spine tenderness and back pain. COMPARISON: None. TECHNIQUE: Contiguous helical images of the lumbar spine were obtained without IV contrast. Multiplanar reconstructions were performed. FINDINGS: The lumbar alignment is maintained without evidence of listhesis. There is redemonstration of a chronic compression fracture at L4 with 50% height loss and without interval change since 04/22/2016. There is no significant posterior retropulsion or spinal canal stenosis related to this fracture. No acute fracture is seen. There is intervertebral disc height loss at L5-S1. There is disc bulging at L4-L5 which in combination with bilateral facet arthropathy results in mild bilateral neural foraminal stenosis but no significant spinal canal stenosis. At L5-S1 there is diffuse disc bulging and posterior annular ossification which in combination with facet arthropathy contributes to severe right and moderate left neural foraminal stenosis with mass effect on the foraminal segments of the bilateral L5 nerve roots. The patient's known bifurcated aortoiliac stent is partially imaged but is fully described on the prior CT of the abdomen and pelvis performed earlier today. There is a right renal cyst. IMPRESSION: 1. No acute lumbar spine fracture or traumatic malalignment identified. 2. Redemonstration of chronic compression fracture at L4 with 50% height loss. 3. Multilevel degenerative spondylotic changes most advanced at L5-S1 where there is mass effect on the foraminal segments of the bilateral L5 nerve roots. EXAMINATION: CT CHEST WITHOUT CONTRAST CLINICAL INFORMATION: Cough. Smoker. COMPARISON: None TECHNIQUE: Multidetector volumetric CT imaging of the chest was done. Axial MIP volume rendering provided. Sagittal and coronal reformatted images were obtained. DLP: 213.24 mGy-cm FINDINGS: LUNGS: Subpleural emphysematous changes of lungs which is primarily affects the upper lobes. No acute infiltrate. No interstitial or reticular opacity. Small focus of pleural thickening along the minor fissure anteriorly, sagittal image 95. No specific lung nodule. MEDIASTINUM: No mediastinal mass or significant lymphadenopathy. There is vascular wall calcifications of aorta and the origin of great vessels. There is coronary artery calcifications. PLEURA: There is no pleural effusion. No pleural mass or thickening. AXILLA: No lymphadenopathy. UPPER ABDOMEN: 2 cm hypodensity left lobe of liver renal cyst upper pole right kidney. Vascular stent in the proximal aorta. OSSEOUS STRUCTURES: Degenerative spondylosis of dorsal spine with endplate spurring of the vertebrae. IMPRESSION: No acute change of chest. EXAMINATION: CT HEAD WITHOUT CONTRAST CLINICAL INFORMATION: Altered mental status. COMPARISON: None. TECHNIQUE: Contiguous axial imaging was performed from the skull base to vertex without intravenous administration of contrast. DLP: 627 mGy-cm. FINDINGS: There is no intracranial hemorrhage, large infarction, or mass lesion. There is no extra-axial collection. There are chronic appearing lacunar infarcts within the bilateral basal ganglia and left thalamus. There is mild scattered hypoattenuation in the bilateral cerebral white matter, which is nonspecific but likely reflects small vessel disease. There is mild diffuse brain parenchymal volume loss with prominence of the ventricles and sulci. There is no evidence of hydrocephalus. There is mild paranasal sinus mucosal thickening/retention cysts. The mastoids and middle ear cavities are clear. 10/16/2017 IMPRESSION: 1. No acute intracranial abnormality identified. 2. Chronic appearing bilateral basal ganglia and left thalamic lacunar infarcts. 3. Mild small vessel ischemic changes in a background of mild brain parenchymal volume loss. EXAMINATION: CT ABDOMEN AND PELVIS WITHOUT CONTRAST CLINICAL INFORMATION: Back pain. Recent surgery for abdominal aneurysm. History of appendectomy. COMPARISON: CT abdomen and pelvis 04/22/2016. TECHNIQUE: Multidetector volumetric imaging was performed from the superior aspect of the liver through the pubic symphysis. Sagittal and coronal reformatted images were obtained on the technologist's workstation. DLP: 291.97 mGy-cm FINDINGS: LUNG BASES: The visualized lung bases are unremarkable. LIVER, GALLBLADDER, AND BILIARY TREE: Stable left lobe hepatic cyst measuring 1.7 cm. No intrahepatic bile duct dilatation. Status post cholecystectomy. PANCREAS: Pancreatic atrophy. No inflammation or mass. No pancreatic duct dilatation. SPLEEN: Unremarkable. ADRENAL GLANDS: Unremarkable. KIDNEYS AND URETERS: Multiple renal cysts. Largest cyst at the upper pole of the right kidney measuring 5 cm. There is a pedunculated cyst at the mid upper pole measuring 1 cm. At the lower pole, there is a cortical cyst measuring 1.6 cm. There are vascular calcifications in the right and left renal sussy without calculus. No hydronephrosis. BLADDER: Unremarkable. GASTROINTESTINAL TRACT: There is diverticulosis of the left colon and sigmoid. No diverticulitis. No acute change of the bowel. No bowel obstruction. No bowel wall thickening or edema. Moderate volume of scattered stool in the colon. The appendix is not seen. The small bowel loops are unremarkable. ABDOMINAL WALL: No significant hernia is appreciated. LYMPH NODES: Normal. VASCULAR: Atherosclerotic vascular wall calcifications of the aorta and iliac vessels. There is a large fusiform aneurysm of aorta and aneurysm of the common iliac arteries. The aorta has been previously stented. There is a previous stent in the aorta seen on the CT scan of 04/22/[address] The patient has had a secondary stent now placed within the first stent in the aorta. There are also now stents in the SMA and in the right and left renal artery origins. The abdominal aorta has a maximal transverse dimension of 7.1 cm, axial image 38 (2). On the CT scan of 04/22/2016, the aneurysm measured 6.7 cm transverse. There are scattered atherosclerotic vascular wall calcifications of the aorta, unchanged since the prior CT scan. This includes a cloud-like amorphous area of calcification at the mid aortic aneurysmal stent at the anterior aneurysm, axial image 34 (2). This calcification was also present on the CT scan of 04/22/2016. No evidence of leak. No retroperitoneal or intraperitoneal hematoma. No surrounding inflammation. PELVIC VISCERA: Prostate measures 4.7 cm transverse. OSSEOUS STRUCTURES: Multilevel degenerative spondylosis of the spine with endplate spurs and facet joint arthrosis. Central depression of the superior endplate of L4, unchanged since the prior CT scan. IMPRESSION: Fusiform abdominal aortic aneurysm now measuring 7.1 cm in diameter. Stents are present in the aorta, SMA, renal arteries and common iliac arteries. No evidence of hematoma. Assessment/Plan Assessment/Plan 77YO M WITH RECENT HX OF AAA REPAIR WITH MULTIPLE STENTS AND PAST MEDICAL HISTORY SIGNIFICANT FOR CVAX3, CKD, HTN, HLD, AND CHRONIC BACK PAIN NOW HERE ADMITTED FOR HYPOTENSION, POOR APPETITE AND HYDRATION, WEAKNESS AND BACK PAIN. NEED TO RULE OUT POSSIBLE LEAK AROUND AORTIC STENTS INTO AAA SAC. DUE TO ELEVATED CREATANINE CAN NOT ORDER CT WITH CONTRAST AT THIS TIME. WILL ORDER US OF AORTA NOW AND MAY CONSIDER CTA WITH CONTRAST IF HYDRATION IMPROVES RENAL FUNCTION TOMORROW REC NPO FOR NOW INCASE SURGICAL INTERVENTION IS REQUIRED NO HEPARIN PER DR QUACH AT THIS TIME UNTILL LEAK IS RULED OUT WILL DISCUSS WITH DR QUACH Consult Acknowledgment - Thank you for your consult request.
--- NOTE | 2017-10-17 23:15 | Admission Certification ---
Admission Certification Certification Statement - As attending physician, I certify that at the time of - admission, based on clinical presentation, severity of - symptoms, need for further diagnostic testing and - therapeutic interventions, and risk of adverse outcomes - without in-hospital treatment, in my clinical assessment, - this patient requires an acute hospital stay for a minimum - of two nights or longer. I have also considered psychsocial - factors such as support system, advanced age, financial - issues, cognitive issues, and failed out-patient treatments, - past re-admission history, safety of patient, and lack of - compliance as applicable. Specific rationale supporting this admission is: Hypotension, altered mentation, gait instability, acute on chronic back pain.
--- NOTE | 2017-10-18 03:11 | Event Note ---
Event Note Event Note: 3 AM-I was paged by the nurse that the patient wanted to talk to me. Mr. 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 I spoke to Mr. Santa who expresses his wish, that he doesn't want any surgery for his abdominal aortic aneurysm in the future. He said that he had a horrible experience during the AAA repair on 09/27/17 at [facility]. I explained him that we are suspecting leak as per vascular surgeon and we will discuss with him if he we plan for any surgery in the future. I also explained him the benefits and the risk of surgery if he becomes hemodynamically unstable because of the leak. He told me that he understands the benefits and the risk of surgery. For now patient denies any further surgery.
[2017-10-18 06:58] VITALS: BP 152/70
--- NOTE | 2017-10-18 07:17 | PN- Housestaff ---
Luke FLOREZ,[facility] 10/18/17 0717: Subjective Follow-up For: AAA back pain Tele-Events Since Last Visit: NSR with HR 75-81. No overnight events. Subjective: patient was seen and examined at bedside. He is slightly upset because he does not want to undergo surgery for his AAA as he recently had stent placed. He does complain of some lower abdominal pain and back pain. Review of Systems Constitutional: Reports: no symptoms. Gastrointestinal: Reports: abdominal pain. Musculoskeletal: Reports: back pain. Objective Last 24 Hrs of Vital Signs/I&O Vital Signs Date Time Temp Pulse Resp B/P B/P Pulse O2 O2 Flow FiO2 Mean Ox Delivery Rate 10/18 1452 99.9 75 20 140/72 95 Room Air 10/18 1137 146/70 10/18 0658 99.0 76 20 152/70 96 Room Air 10/17 2230 98.8 79 20 168/78 96 Room Air 10/17 2230 96 Room Air 10/17 2020 100.2 80 18 169/74 97 Room Air 10/17 1744 98.3 74 20 136/65 99 Room Air Intake & Output 10/18 1600 10/18 0800 10/18 0000 Intake Total 700 400 50 Output Total 550 300 Balance 150 100 50 Intake, IV 300 400 50 Intake, Oral 400 Output, Urine 550 300 Patient 165 lb Weight Weight Reported by Patient Measurement Method Physical Exam General Appearance: Alert, Oriented X3, Cooperative, Mild Distress Skin: No Rashes, No Breakdown Skin Temp/Moisture Exam: Warm/Dry Sepsis Skin Exam (color): Normal for Ethnicity HEENT: Atraumatic Cardiovascular: Normal S1, Normal S2, systolic murmur Lungs: Clear to Auscultation, Normal Air Movement Abdomen: Soft, No Tenderness Neurological: Normal Speech Extremities: No Edema Assessment/Plan Assessment: Mr. Santa is a 77-year-old male with a past medical history significant for nicotine dependence (1/2 PPD x > 40 yrs), AAA repair with multiple stent placement, CVA3, CK D, HTN, HLD, BL CEA (3 yrs ago), chronic back pain who presented to the ED with severe hypotension, weakness and back pain. Assessment and Plan: Problem List: 1. Severe Hypotension on admission - resolved 2. Chronic Compression Fracture at L4 3. CKD Stage IV 4. History of HTN and CVA Plan: * Continue monitoring on telemetry * His hypotension has resolved. He has responded well to IVF. His diet has been resumed today. * His chronic back pain is likely exacerbated in the context of his enlarging AAA. * His U/S abdomen was normal without any evidence of leak. He can follow up with vascular surgery as an outpatient. * Echocardiogram. * Will follow up cultures. * Patient is refusing surgery or further imaging at this time. * Will provide him with analgesia. * Further management of his back pain can be pursued with his primary doctors at [facility] * Was evaluated by neurosurgery and recommend no intervention at this time. * Orthostatic vitals q8. * Neuro recs appreciated. * Diet: Heart Healthy * DVT Prophylaxis: SC Heparin x3 * Code: Full Code He had a bedside swallow evaluation He did well with water, apple juice and apple sauce. Problem List: 1. Abdominal pain Pain Ratin Pain Location: none Pain Goal: Remain pain free Pain Plan: none Tomorrow's Labs & Rationales: CBC, BEP Jackie FLOREZ,[facility] 10/18/171928: Attending MD Review Statement Attending Statement Attending MD Statement: examined this patient, discuss w/resident/PA/GOLD BURNISHER, agreed w/resident/PA/GOLD BURNISHER, discussed with family, reviewed EMR data (avail), discussed with nursing, discussed with case mgmt, reviewed images, amended to note Attending Assessment/Plan: The patient was seen and discussed with house staff and family. He was formerly being taken care of at the [facility], however will now be relocating here to [place]. He has Medicare and has application pending for [facility]. Was told today that he has debt to pay prior to being able to get this insurance. He appears to have been orthostatic when he came in and now is better hydrated. Appreciate Neurosurgery input. Will discuss with case management. PT/ambulation. [facility] [place] [facility] as he now would consider an injection. They would have access to his records at the [facility]. Will discuss with case management options for transportation to and from appointments.
--- NOTE | 2017-10-18 09:45 | PN- Vascular Surgery ---
See Addendum Subjective Subjective: NO ABD PAIN, NO CP/SOB. C/O BACK PAIN, THOUGH NO DIFFERENT FROM HIS BASELINE CHRONIC BACK PAIN Objective Vital Signs and I&Os Vital Signs Date Time Temp Pulse Resp B/P B/P Pulse O2 O2 Flow FiO2 Mean Ox Delivery Rate 10/18 0658 99.0 76 20 152/70 96 Room Air 10/17 2229 98.8 79 20 168/78 96 Room Air 10/17 2229 96 Room Air 10/17 2019 100.2 80 18 169/74 97 Room Air 10/17 1744 98.3 74 20 136/65 99 Room Air 10/17 1547 98.2 76 18 160/75 98 Room Air 10/17 1448 97.4 92 20 167/98 98 Room Air 10/17 1237 97.2 78 20 137/64 100 Room Air Intake & Output 10/18 1600 10/18 0800 10/18 0000 10/17 1600 10/17 0800 10/17 0000 Intake Total 400 50 Output Total 300 Balance 100 50 Intake, IV 400 50 Output, Urine 300 Patient 165 lb 160 lb Weight Weight Reported by Patient Reported by Patient Measurement Method Physical Exam: gen-nad card-s1s2 pulm-no audible wheeze abd- soft, nt, nd. ext- bl groin incisions cdi, no ecchymosis, soft. calves soft nt Results Last 48 Hours of Labs: Laboratory Tests 10/18 10/17 10/17 10/17 0925 2154 2029 2028 Chemistry Sodium Pending Potassium Pending Chloride Pending Carbon Dioxide Pending Anion Gap Pending BUN Pending Creatinine Pending BUN/Creatinine Ratio Pending Iron (49 - 181 ug/dL) 14 L TIBC (261 - 462 ug/dL) 305 Ferritin (17.9 - 464 ng/mL) 103.0 Vitamin B12 (239 - 931 pg/mL) 664 Folate (2.76 - 20.0 ng/mL) 6.1 Cortisol PM Sample (1.7 - 14.1) 15.2 H Cancelled Toxicology Methadone Screen Cancelled Barbiturate Screen Cancelled Ur Phencyclidine Scrn Cancelled Amphetamines Screen Cancelled U Benzodiazepines Scrn Cancelled Urine Cocaine Screen Cancelled Urine Cannabis Screen Cancelled Urines Urine Color Cancelled Urine Clarity Cancelled Urine pH Cancelled Ur Specific [place] Cancelled Urine Protein Cancelled Urine Ketones Cancelled Urine Nitrite Cancelled Urine Bilirubin Cancelled Urine Urobilinogen Cancelled Ur Leukocyte Esterase Cancelled Ur Microscopic Cancelled Urine Hemoglobin Cancelled Urine Glucose Cancelled 10/17 Serology Virus Culture Pending Toxicology Urine Opiates Screen (>2000 NG/ML) < 100.00 Methadone Screen (>300 NG/ML) < 40 Barbiturate Screen (>200 NG/ML) < 60 Ur Phencyclidine Scrn (>25 NG/ML) < 6.00 Amphetamines Screen (>1000 NG/ML) < 100 U Benzodiazepines Scrn (>200 NG/ML) < 85 Urine Cocaine Screen (>300 NG/ML) < 50 Urine Cannabis Screen (>50 NG/ML) < 5.00 Urines Urinalysis MOD H Urine Color (YEL,AMB,STR) YEL Urine Clarity (CLEAR) CLEAR Urine pH (5.0 - 8.0) 6.0 Ur Specific [place] (1.001 - 1.035) 1.025 Urine Protein (NEG,<30 MG/DL) 30 H Urine Ketones (NEG) NEG Urine Nitrite (NEG) NEG Urine Bilirubin (NEG) NEG Urine Urobilinogen (0.1 - 1.0 EU/dl) 0.2 Ur Leukocyte Esterase (NEG) NEG Ur Microscopic SEDIMENT EXAMINED Urine RBC (0 - 5 /HPF) 1-3 Urine WBC (0 - 2 /HPF) RARE Ur Epithelial Cells (NONE,FEW) RARE Hyaline Casts (0/LPF) RARE H Urine Mucus (FEW,NONE) FEW Urine Hemoglobin (NEG) NEG Urine Glucose (N MG/DL) NEG 10/17 1336 Chemistry Sodium (137 - 145 mmol/L) 141 Potassium (3.5 - 5.1 mmol/L) 4.5 Chloride (98 - 107 mmol/L) 105 Carbon Dioxide (22 - 30 mmol/L) 26 Anion Gap (5 - 16) 11 BUN (9 - 20 mg/dL) 51 H Creatinine (0.7 - 1.2 mg/dL) 2.5 H Estimated GFR (>60 ml/min) 25 L BUN/Creatinine Ratio (7 - 25 %) 20.4 Glucose (65 - 99 mg/dL) 112 H Calcium (8.4 - 10.2 mg/dL) 8.7 Total Bilirubin (0.2 - 1.3 mg/dL) 0.2 AST (17 - 59 U/L) 36 ALT (21 - 72 U/L) 78 H Alkaline Phosphatase (< 127 U/L) 83 Troponin I (<0.11 ng/ml) 0.04 Total Protein (6.3 - 8.2 g/dL) 6.5 Albumin (3.5 - 5.0 g/dL) 3.2 L Globulin (1.9 - 4.2 gm/dL) 3.3 Albumin/Globulin Ratio (1.1 - 2.2 %) 1.0 L Coagulation PT (9.4 - 12.5 SEC) 12.8 H INR (0.90 - 1.17) 1.22 H APTT (25 - 37 SEC) 25 Hematology CBC w Diff NO MAN DIFF REQ WBC (4.8 - 10.8 /CUMM) 9.2 RBC (4.70 - 6.10 /CUMM) 3.39 L Hgb (14.0 - 18.0 G/DL) 9.2 L Hct (42 - 52 %) 28.0 L MCV (80.0 - 94.0 FL) 82.6 MCH (27.0 - 31.0 PG) 27.2 MCHC (33.0 - 37.0 G/DL) 33.0 RDW (11.5 - 14.5 %) 15.4 H Plt Count (130 - 400 /CUMM) 318 MPV (7.4 - 10.4 FL) 8.2 Gran % (42.2 - 75.2 %) 75.6 H Lymphocytes % (20.5 - 51.1 %) 11.6 L Monocytes % (1.7 - 9.3 %) 10.8 H Eosinophils % (0 - 5 %) 1.4 Basophils % (0.0 - 2.0 %) 0.6 Absolute Granulocytes (1.4 - 6.5 /CUMM) 7.0 H Absolute Lymphocytes (1.2 - 3.4 /CUMM) 1.1 L Absolute Monocytes (0.10 - 0.60 /CUMM) 1.0 H Absolute Eosinophils (0.0 - 0.7 /CUMM) 0.1 Absolute Basophils (0.0 - 0.2 /CUMM) 0.1 Recent Imaging Studies: US aorta pending Assessment/Plan Assessment/Plan A- 77M with back pain, more likely due to chronic back pain than endoAAA leak, hemodynamically stable. P- Pt seen by Dr. Sawant. Awating US aorta. If WNL, will fu as outpt.
--- NOTE | 2017-10-18 11:31 | ULTRASOUND REPORT ---
EXAMINATION: US RETROPERITONEAL LIMITED (AORTA) CLINICAL INFORMATION: Hypotension. Back pain. Presumptive diagnosis: Endoleak in stented AAA. COMPARISON: Abdomen and pelvis on 10/17/2017. No IV. Maximum AP diameter of the fusiform infrarenal aneurysm measured 7.5 cm by my estimation. CT of the abdomen and pelvis on 04/22/2016. Maximum AP diameter of the aneurysm at that time measured 6.4 cm. Please note that an endoleak is better evaluated with IV contrast. TECHNIQUE: Grayscale, color Doppler and spectral Doppler evaluation of the abdominal aorta. FINDINGS: The patient's infrarenal fusiform abdominal aortic aneurysm has undergone stenting. The measurements of the aorta in maximum AP and transverse dimensions respectively are as follows: Proximal: Not well seen. Mid: 7.2 x 6.6 cm. Distal: 5.6 x 6.0 cm. The measurements of the common iliac arteries in maximum AP dimension are as follows: Right Common Iliac Artery: 1.5 cm. Left Common Iliac Artery: 1.3 cm. As on the CT exam, there is concentric circumferential clot formation surrounding the outer border of the indwelling aortic stent. "Piggyback" stents are in place as demonstrated on yesterday's CT exam. The thickness of this intraluminal clot formation varies from 1.0 to 1.3 cm. No demonstrable flow is seen in the thrombosed lumen of the [place] aneurysm external to the stent. However, on the CT exam, there is a small focal area of high attenuation located within the intraluminal clot anteriorly. Also, there is intimate association of the third portion the duodenum with the anterior wall of the proximal aortic aneurysm. Series 601, image 58. Series 602, image 30. In 04/22/2016, the AP diameter of the [place] aneurysm measured only 6.4 cm. IMPRESSION: Increasing luminal diameter of the [place] AAA. Circumferential thrombus formation surrounding the aortic stent as described. An endoleak is best demonstrated with an IV enhanced CT examination.
--- NOTE | 2017-10-18 12:34 | Cons- Neurology ---
General Information and HPI Consulting Request Date of Consult: 10/18/17 Requested By: Heath Mejia MD History of Present Illness: 77-year-old male with history of multiple, subcortical cerebral infarcts and bilateral carotid endarterectomies was admitted after becoming lightheaded upon arising and falling backwards onto his bed. Apparently this occurred in the presence of a medical provider, visiting his home. He was reportedly found to be hypotensive and referred to the hospital. He currently is back to his baseline. He denies any recent diplopia, headache or intercurrent infectious illness. Allergies/Medications Allergies: Coded Allergies: No Known Allergies (04/22/16) Home Med List: Atorvastatin Calcium 10 MG TABLET 0.5 TAB PO DAILY CHOLESTEROL (Reported) Gabapentin (Neurontin) 300 MG CAPSULE 1 CAP PO BID NEUROPATHY (Reported) Metoprolol Succ XL (Toprol XL) 25 MG TAB 1 TAB PO DAILY HEART (Reported) Review of Systems Review of Systems: Positive for intermittent cough, chronic back pain and imbalance for which she uses a cane. 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 Home Services at Home: Nursing Smoking Status: Current Everyday Smoker Exam & Diagnostic Data Vital Signs and I&O Vital Signs Date Time Temp Pulse Resp B/P B/P Pulse O2 O2 Flow FiO2 Mean Ox Delivery Rate 10/18 1137 146/70 10/18 0658 99.0 76 20 152/70 96 Room Air 10/17 2230 98.8 79 20 168/78 96 Room Air 10/17 223 96 Room Air 10/17 2019 100.2 80 18 169/74 97 Room Air 10/17 1744 98.3 74 20 136/65 99 Room Air 10/17 1547 98.2 76 18 160/75 98 Room Air 10/17 1448 97.4 92 20 167/98 98 Room Air 10/17 1237 97.2 78 20 137/64 100 Room Air Intake & Output 10/18 1600 10/18 0800 10/18 0000 Intake Total 400 50 Output Total 300 Balance 100 50 Intake, IV 400 50 Output, Urine 300 Patient 165 lb Weight Weight Reported by Patient Measurement Method Pleasant, elderly gentleman in no acute distress. He was awake, alert and cooperative. Higher cortical function was grossly intact. Speech was fluent. The head was normocephalic and atraumatic. Pupils were equal. Extraocular movements were full. Face was symmetric. Hearing was grossly normal. Tongue was midline. Motor examination showed no drift of the upper extremities. There was no focal or lateralizing weakness. Deep tendon reflexes were symmetric. Plantar responses were flexor. Fine finger movements and rapid alternating movements performed normally. There was no ataxia on [id number] testing. The gait was not evaluated. CAT scan of the brain on admission showed chronic, bilateral lacunar infarcts. There were no acute abnormalities. Assessment/Plan Assessment: The patient presents with lightheadedness upon arising, suggestive of orthostasis. History and examination does not reflect recurrent stroke or TIA. I suspect that he is currently at his baseline. Recommendations: Would recommend gentle hydration and initial ambulation with assistance. Orthostatic vital signs should be obtained 3 times a day while in hospital. Should significant orthostasis persist, he might be a candidate for Florinef or midodrine however would not empirically begin these preparations unless necessary. No further neurodiagnostic studies are anticipated at this time. Please feel free to call with any further questions. Consult Acknowledgment - Thank you for your consult request.
--- NOTE | 2017-10-18 12:54 | Cons- Cardiology ---
General Information and HPI Consulting Request Date of Consult: 10/18/17 Requested By: Heath Mejia MD Reason for Consult: hypotension, abdominal aortic aneurysm Source of Information: patient Exam Limitations: no limitations History of Present Illness: The patient is a 77-year-old male. His past history is significant for tobacco use, AAA repair, prior strokes, CK D, hypertension, hyperlipidemia, bilateral carotid endarterectomy, etc. The patient presented to the restroom for evaluation of low blood pressure. On the day of admission, the patient was feeling lightheaded, fell trying to out of bed. The visiting nurse noted significant hypotension and the patient was brought to the emergency room by EMS. Reportedly, the patient had a abdominal aortic aneurysmal repair on 09/27/[address] Norman at the [facility]. No competition's were reported at that time. On 10-15 he was found to have significant hypotension and abdominal distention. An NG tube was placed for 24 hours. The patient was discharged on 10/03/17. He subsequently noted bilateral lower extremity weakness and worsening back pain. His PCP placed him on steroids for the back pain. The patient is admitted to the hospital for further evaluation. reported he had severe hypotension and called EMS. Patient reported he had a AAA repair 09/27/[address] Norman at the [facility] without complications. Then on 09/29/17 he was found to have severe hypotension and abdominal distention. He was told it was a side effect from medications. An NGT was placed for 24 hours that drained a large volume of fluid. He reports 400 mL was left in the abdomen. He was discharged 10/03/17 and noticed he had BLE weakness and worsening back pain. He was placed on a prednisone taper for his persistent back pain by his PCP. He reports a poor appetite and hydration because he was unable to get food or liquids down easily. He is noncompliant with his aspirin. He ambulates without a walker and performs his ADLs. He denies fever, nausea, vomiting, trauma, urinary or bowel symptoms. Allergies/Medications Allergies: Coded Allergies: No Known Allergies (04/22/16) Home Med List: Atorvastatin Calcium 10 MG TABLET 0.5 TAB PO DAILY CHOLESTEROL (Reported) Ferrous Sulfate 325 MG (65 MG IRON) TABLET 1 TAB PO BID ELYSSA Folic Acid 1 MG TABLET 1 TAB PO DAILY Low folic acid Gabapentin (Neurontin) 300 MG CAPSULE 1 CAP PO BID NEUROPATHY (Reported) Lidocaine (Lidoderm) 5 % ADH..PATCH 1 PAT EXT DAILY BACK PAIN Metoprolol Succ XL (Toprol Xl) 50 MG TAB 50 MG PO DAILY blood pressure Midodrine HCl 5 MG TABLET 1 TAB PO DAILY orhtostatic Tramadol HCl 50 MG TABLET 1 TAB PO TIDPRN Back pain Current Medications: Current Medications Sig/Som Start time Last Medication Dose Route Stop Time Status Admin Atorvastatin Calcium 5 MG 1700 10/18 1700 AC PO Gabapentin 300 MG BID 10/17 2199 AC 10/18 PO 1137 Heparin Sodium 5,000 UNIT Q8 10/17 2200 DC (Porcine) SC Lidocaine 1 PAT DAILY 10/17 2026 AC 10/18 EXT 1138 Metoprolol Succinate 25 MG DAILY 10/18 1000 AC 10/18 PO 1137 Oxycodone HCl 5 MG ONCE ONE 10/17 1500 DC 10/17 PO 10/17 1501 1457 Oxycodone HCl 0 .STK-MED ONE 10/17 1500 DC PO Oxycodone/ 1 TAB Q6P PRN 10/17 2145 AC Acetaminophen PO Sodium Chloride 1,000 ML Q20H 10/17 2014 AC 10/17 IV 2208 Tramadol HCl 0 .STK-MED ONE 10/17 2105 DC PO Tramadol HCl 50 MG Q6P PRN 10/17 2029 AC 10/18 PO 0538 Past History Travel History Traveled to [place] past 21 day No Medical History Blood Transfusion Hx: Yes Neurological: CVA EENT: NONE Cardiovascular: hypertension Respiratory: NONE Gastrointestinal: constipation Hepatic: CHOLY,APPY Renal: chronic kidney disease Musculoskeletal: L4 DISC Psychiatric: NONE Endocrine: NONE Blood Disorders: NONE 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 Home Services at Home: Nursing Smoking Status: Current Everyday Smoker Exam & Diagnostic Data Vital Signs and I&O Vital Signs Date Time Temp Pulse Resp B/P B/P Pulse O2 O2 Flow FiO2 Mean Ox Delivery Rate 10/18 1137 146/70 10/18 0658 99.0 76 20 152/70 96 Room Air 10/17 2229 98.8 79 20 168/78 96 Room Air 10/17 2229 96 Room Air 10/17 2019 100.2 80 18 169/74 97 Room Air 10/17 1743 98.3 74 20 136/65 99 Room Air 10/17 1547 98.2 76 18 160/75 98 Room Air 10/17 1448 97.4 92 20 167/98 98 Room Air Intake & Output 10/18 0810/18 0000 10/17 1600 10/17 0810/17 0000 Intake Total 400 50 Output Total 300 Balance 100 50 Intake, IV 400 50 Output, Urine 300 Patient 165 lb 160 lb Weight Weight Reported by Patient Reported by Patient Measurement Method Physical Exam: General Appearance Alert, Oriented X3, Cooperative HEENT Atraumatic, PERRLA, EOMI, dry mucous membranes Neck Supple, JVP normal, carotid shows normal bilaterally. No bruits. No thyromegaly. Cardiovascular Regular Rate, Normal S1, Normal S2, 1/6 systolic murmur left upper sternal border Lungs Clear to Auscultation and percussion bilaterally Abdomen Normal Bowel Sounds, Soft, No Tenderness Extremities No Edema Vascular Femoral pulses palpable, BL femoral healed incisions without drainage, hematoma or warmth Rectal Guiac Negative, decreased rectal tone Labs/Tony Results: Laboratory Tests 10/18 10/17 10/17 10/17 0925 5 2029 2028 Chemistry Sodium (137 - 145 mmol/L) 139 Potassium (3.5 - 5.1 mmol/L) 4.6 Chloride (98 - 107 mmol/L) 107 Carbon Dioxide (22 - 30 mmol/L) 22 Anion Gap (5 - 16) 10 BUN (9 - 20 mg/dL) 51 H Creatinine (0.7 - 1.2 mg/dL) 2.3 H Estimated GFR (>60 ml/min) 28 L BUN/Creatinine Ratio (7 - 25 %) 22.2 Iron (49 - 181 ug/dL) 14 L TIBC (261 - 462 ug/dL) 305 Ferritin (17.9 - 464 ng/mL) 103.0 Vitamin B12 (239 - 931 pg/mL) 664 Folate (2.76 - 20.0 ng/mL) 6.1 Cortisol PM Sample (1.7 - 14.1) 15.2 H Cancelled Toxicology Methadone Screen Cancelled Barbiturate Screen Cancelled Ur Phencyclidine Scrn Cancelled Amphetamines Screen Cancelled U Benzodiazepines Scrn Cancelled Urine Cocaine Screen Cancelled Urine Cannabis Screen Cancelled Urines Urine Color Cancelled Urine Clarity Cancelled Urine pH Cancelled Ur Specific [place] Cancelled Urine Protein Cancelled Urine Ketones Cancelled Urine Nitrite Cancelled Urine Bilirubin Cancelled Urine Urobilinogen Cancelled Ur Leukocyte Esterase Cancelled Ur Microscopic Cancelled Urine Hemoglobin Cancelled Urine Glucose Cancelled 10/17 Serology Virus Culture Pending Toxicology Urine Opiates Screen (>2000 NG/ML) < 100.00 Methadone Screen (>300 NG/ML) < 40 Barbiturate Screen (>200 NG/ML) < 60 Ur Phencyclidine Scrn (>25 NG/ML) < 6.00 Amphetamines Screen (>1000 NG/ML) < 100 U Benzodiazepines Scrn (>200 NG/ML) < 85 Urine Cocaine Screen (>300 NG/ML) < 50 Urine Cannabis Screen (>50 NG/ML) < 5.00 Urines Urinalysis MOD H Urine Color (YEL,AMB,STR) YEL Urine Clarity (CLEAR) CLEAR Urine pH (5.0 - 8.0) 6.0 Ur Specific [place] (1.001 - 1.035) 1.025 Urine Protein (NEG,<30 MG/DL) 30 H Urine Ketones (NEG) NEG Urine Nitrite (NEG) NEG Urine Bilirubin (NEG) NEG Urine Urobilinogen (0.1 - 1.0 EU/dl) 0.2 Ur Leukocyte Esterase (NEG) NEG Ur Microscopic SEDIMENT EXAMINED Urine RBC (0 - 5 /HPF) 1-3 Urine WBC (0 - 2 /HPF) RARE Ur Epithelial Cells (NONE,FEW) RARE Hyaline Casts (0/LPF) RARE H Urine Mucus (FEW,NONE) FEW Urine Hemoglobin (NEG) NEG Urine Glucose (N MG/DL) NEG 10/17 1336 Chemistry Sodium (137 - 145 mmol/L) 141 Potassium (3.5 - 5.1 mmol/L) 4.5 Chloride (98 - 107 mmol/L) 105 Carbon Dioxide (22 - 30 mmol/L) 26 Anion Gap (5 - 16) 11 BUN (9 - 20 mg/dL) 51 H Creatinine (0.7 - 1.2 mg/dL) 2.5 H Estimated GFR (>60 ml/min) 25 L BUN/Creatinine Ratio (7 - 25 %) 20.4 Glucose (65 - 99 mg/dL) 112 H Calcium (8.4 - 10.2 mg/dL) 8.7 Total Bilirubin (0.2 - 1.3 mg/dL) 0.2 AST (17 - 59 U/L) 36 ALT (21 - 72 U/L) 78 H Alkaline Phosphatase (< 127 U/L) 83 Troponin I (<0.11 ng/ml) 0.04 Total Protein (6.3 - 8.2 g/dL) 6.5 Albumin (3.5 - 5.0 g/dL) 3.2 L Globulin (1.9 - 4.2 gm/dL) 3.3 Albumin/Globulin Ratio (1.1 - 2.2 %) 1.0 L Coagulation PT (9.4 - 12.5 SEC) 12.8 H INR (0.90 - 1.17) 1.22 H APTT (25 - 37 SEC) 25 Hematology CBC w Diff NO MAN DIFF REQ WBC (4.8 - 10.8 /CUMM) 9.2 RBC (4.70 - 6.10 /CUMM) 3.39 L Hgb (14.0 - 18.0 G/DL) 9.2 L Hct (42 - 52 %) 28.0 L MCV (80.0 - 94.0 FL) 82.6 MCH (27.0 - 31.0 PG) 27.2 MCHC (33.0 - 37.0 G/DL) 33.0 RDW (11.5 - 14.5 %) 15.4 H Plt Count (130 - 400 /CUMM) 318 MPV (7.4 - 10.4 FL) 8.2 Gran % (42.2 - 75.2 %) 75.6 H Lymphocytes % (20.5 - 51.1 %) 11.6 L Monocytes % (1.7 - 9.3 %) 10.8 H Eosinophils % (0 - 5 %) 1.4 Basophils % (0.0 - 2.0 %) 0.6 Absolute Granulocytes (1.4 - 6.5 /CUMM) 7.0 H Absolute Lymphocytes (1.2 - 3.4 /CUMM) 1.1 L Absolute Monocytes (0.10 - 0.60 /CUMM) 1.0 H Absolute Eosinophils (0.0 - 0.7 /CUMM) 0.1 Absolute Basophils (0.0 - 0.2 /CUMM) 0.1 Assessment/Plan Assessment/Plan Assessment 1. Hypotension likely multifactorial - now improved. 2. Recent AAA repair with aneurysm now measuring 7.1 cm 3. Acute worsening of chronic back pain 4. Gait instability, unable to ambulate degenerative disc disease with mass effect on L5 nerve roots 5. Normocytic anemia 6. H/o CVA and HTN 7. CKD stage 4 Medications: -Keep the patient on medical doctor md for now. -Echocardiogram pending -Vascular surgery workup in progress. Abdominal ultrasound results noted. The abdominal ultrasound, cannot completely exclude the possibility of an Endo leak. [facility]. Further increase in the size of the aneurysm post stenting might be a sign of endovascular leak. -Anemia workup in progress -Cultures pending -Monitor blood pressure closely, check orthostatic heart rate and blood pressure every shift 3. -continue to monitor renal function closely -Out of bed as tolerated -Further plans after review of MD hospital records Consult Acknowledgment - Thank you for your consult request.
--- NOTE | 2017-10-18 13:29 | PN- Neurosurgical ---
Surgical Brief Attending Note Brief Attending Note: Neurosurgical consultation 77-year-old right-handed white male admitted for severe hypotension which had led to a fall. He had been having abdominal severe abdominal distention and 400 mL of fluid were removed a nasogastric 2. His hypotension is felt to be due to dehydration He has been complaining for a long time of back pain he denies any sciatic type discomfort but feels difficulties walking because of "" I am feeling weak" His past medical history is positive for nicotine dependency, abdominal abdominal aortic aneurysm repair is on multiple occasions, 3 CVAs, chronic kidney disease, hypertension, high lipids, BL CVA 3 years ago chronic lower back pain with known compression fracture of L4 She has known medical allergies He is taking. Prednisone is on Cipro for this He is awake alert and oriented. He is nontender to palpation of his back. He is a minimal amount of paraspinous muscle spasm. Motor strength in both lower extremities is 5 over 5. He has 1+ knee jerk absent ankle jerk and toes are downgoing. He has negative straight leg raising His MRI demonstrates no acute lumbar spine fracture. Very chronic compression fracture at L4 going back to at least 2016. He has spondylosis at L5-S1 and bilateral L5 foraminal entrapments This gentleman has interesting findings on his MRI however he is not presenting with acute sciatica discomfort nor does he have any weakness nor does he have any indication of need for rapid surgical decompression I will obtain a second opinion with Dr. Trejo but I do not believe there is any reason for any neurosurgical intervention at this point in time given the severity of his other medical issues. [facility] addition [facility] the [facility] be found there Thank you for this consultation copy for
[2017-10-18 14:52] VITALS: BP 140/72
[2017-10-18 22:39] VITALS: BP 150/76
[2017-10-19 06:00] VITALS: BP 178/74
--- NOTE | 2017-10-19 08:09 | PN- Housestaff ---
See Addendum Subjective Follow-up For: AAA back pain Subjective: Patient had runs of SVT No complaints or acute events Review of Systems Constitutional: Reports: see HPI. Objective Last 24 Hrs of Vital Signs/I&O Vital Signs Date Time Temp Pulse Resp B/P B/P Pulse O2 O2 Flow FiO2 Mean Ox Delivery Rate 10/19 1433 98.1 64 14 142/70 99 Room Air 10/19 0833 77 178/74 10/19 0600 98.7 77 18 178/74 97 10/19 0000 Room Air 10/18 2239 98.9 83 24 150/76 95 Intake & Output 10/19 1600 10/19 0800 10/19 0000 Intake Total 450 200 240 Output Total 675 Balance 450 -475 240 Intake, Oral 450 200 240 Output, Urine 675 Physical Exam General Appearance: Alert, Oriented X3, Cooperative Cardiovascular: Regular Rate, Normal S1, Normal S2 Lungs: Clear to Auscultation, Normal Air Movement Extremities: No Edema Current Medications: Current Medications Sig/Som Start time Last Medication Dose Route Stop Time Status Admin Atorvastatin Calcium 5 MG 1700 10/18 1700 AC 10/18 PO 1631 Gabapentin 300 MG BID 10/17 220 AC 10/19 PO 0833 Heparin Sodium 5,000 UNIT Q8 10/18 2199 AC 10/19 (Porcine) SC 1309 Lidocaine 1 PAT DAILY 10/17 2026 AC 10/19 EXT 0834 Metoprolol Succinate 50 MG DAILY 10/20 1000 AC PO Metoprolol Succinate 25 MG DAILY 10/18 1000 DC 10/19 PO 0833 Oxycodone/ 1 TAB Q6P PRN 10/17 2144 AC 10/19 Acetaminophen PO 0833 Tramadol HCl 50 MG Q6P PRN 10/17 2030 AC 10/19 PO 0937 Last 24 Hrs of Lab/Tony Results Last 24 Hrs of Labs/Mics: Laboratory Tests 10/19/17623: Haptoglobin Pending 10/19/17623: Anion Gap 12, Estimated GFR 25 L, BUN/Creatinine Ratio 18.8, Lactate Dehydrogenase 381, CBC w Diff NO MAN DIFF REQ, RBC 3.03 L, MCV 82.5, MCH 27.1, MCHC 32.8 L, RDW 15.5 H, MPV 9.3, Gran % 74.3, Lymphocytes % 12.1 L, Monocytes % 10.6 H, Eosinophils % 2.6, Basophils % 0.4, Absolute Granulocytes 7.3 H, Absolute Lymphocytes 1.2, Absolute Monocytes 1.0 H, Absolute Eosinophils 0.3, Absolute Basophils 0 Assessment/Plan Assessment: Mr. Santa is a 77-year-old male with a past medical history significant for nicotine dependence (1/2 PPD x > 40 yrs), AAA repair with multiple stent placement, CVA3, CK D, HTN, HLD, BL CEA (3 yrs ago), chronic back pain who presented to the ED with severe hypotension, weakness and back pain. Assessment and Plan: Problem List: 1. Severe Hypotension on admission - resolved 2. Chronic Compression Fracture at L4 3. CKD Stage IV 4. History of HTN and CVA Plan: * His chronic back pain is likely exacerbated in the context of his enlarging AAA. * Vascular surgery recommendations appreciated * Echocardiogram pending * Patient is refusing surgery or further imaging at this time. * Was evaluated by neurosurgery and recommend no intervention at this time. * Orthostatic vitals q8. * Neuro recs appreciated. * Diet: Heart Healthy * DVT Prophylaxis: SC Heparin x3 * Code: Full Code Problem List: 1. Multifactorial gait disorder 2. Back pain Pain Ratin Pain Location: Back Pain Goal: Pain 7 or less Pain Plan: Tramadol, Lidoderm patch, Oxycodone Tomorrow's Labs & Rationales: CBC for anemia BEP for renal function
[2017-10-19 08:12] LABS: ABSOLUTE BASOPHIL COUNT 0 /CUMM (0.0-0.2); ABSOLUTE EOSINOPHIL COUNT 0.3 /CUMM (0.0-0.7); ABSOLUTE GRANULOCYTE CT 7.3 /CUMM (1.4-6.5); ABSOLUTE LYMPH COUNT 1.2 /CUMM (1.2-3.4); BASOPHIL % 0.4 % (0.0-2.0); EOSINOPHIL % 2.6 % (0-5); GRANULOCYTE % 74.3 % (42.2-75.2); MEAN CORPUSCULAR HGB 27.1 PG (27.0-31.0); MEAN CORPUSCULAR HGB CONC 32.8 G/DL (33.0-37.0); MEAN CORPUSCULAR VOLUME 82.5 FL (80.0-94.0); MEAN PLATELET VOLUME 9.3 FL (7.4-10.4); PLATELET COUNT 230 /CUMM (130-400); RBC DISTRIBUTION WIDTH 15.5 % (11.5-14.5); RED BLOOD CELL CT 3.03 /CUMM (4.70-6.10); WHITE BLOOD CELL COUNT 9.8 /CUMM (4.8-10.8)
--- NOTE | 2017-10-19 08:40 | PN- Vascular Surgery ---
Surgical Brief Attending Note Brief Attending Note: VASCULAR ATTENDING NOTE: Pt. seen and examined. Agree with PA note dated 10/17. Pt. with previopus Fenestrated AAA rtepair at [facility] here with ileus/back pain. PE: AF/VSS Ext: Well perfused, groins soft Abd: No pulsatile mass Imaging : Abd US -No demonstrable flow is seen in the thrombosed lumen of the [place] aneurysm external to the stent. A/P Stable AAA s/p repair 2 weeks ago- no leak on US 1.) Pain control/Medical care per primary team 2.) May f/u at [facility] for further imaging as needed
--- NOTE | 2017-10-19 09:25 | PN- Cardiology ---
Subjective Subjective: Feeling well. No chest pain. No palpitations. No shortness of breath. No diaphoresis. No nausea or vomiting. Last night on telemetry, the patient was noted to have a 10 beat run of wide complex tachycardia, possible ventricular tachycardia. He was also noted to have a brief episode of supraventricular tachycardia which was under 30 seconds. Objective Vital Signs and I&Os Vital Signs Date Time Temp Pulse Resp B/P B/P Pulse O2 O2 Flow FiO2 Mean Ox Delivery Rate 10/19 832 77 178/74 10/19 0600 98.7 77 18 178/74 97 10/19 0000 Room Air 10/18 2239 98.9 83 24 150/76 95 10/18 1452 99.9 75 20 140/72 95 Room Air 10/18 1137 146/70 Intake & Output 10/19 1600 10/19 0810/19 0000 10/18 1600 10/18 0810/18 0000 Intake Total 200 240 700 400 50 Output Total 675 550 300 Balance -475 240 150 100 50 Intake, IV 300 400 50 Intake, Oral 200 240 400 Output, Urine 675 550 300 Patient 165 lb Weight Weight Reported by Patient Measurement Method Physical Exam: Gen: NAD HEENT: normal Lungs: clear to auscultation, normal resp. effort Heart: RRR, S1, S2, 1 out of 6 systolic murmur Abdomen: Soft, nontender, no masses Extremities: No clubbing, cyanosis, or edema. Neuro: Alert and oriented x 3, cranial nerves intact Current Medications: Current Medications Sig/Som Start time Last Medication Dose Route Stop Time Status Admin Atorvastatin Calcium 5 MG 1700 10/18 1700 AC 10/18 PO 1631 Gabapentin 300 MG BID 10/17 2199 AC 10/19 PO 0833 Heparin Sodium 5,000 UNIT Q8 10/18 (Porcine) SC 0602 Lidocaine 1 PAT DAILY 10/17 EXT 0834 Metoprolol Succinate 25 MG DAILY 10/18 1000 AC 10/19 PO 0833 Oxycodone/ 1 TAB Q6P PRN 10/17 Acetaminophen PO 0833 Sodium Chloride 1,000 ML Q20H 10/17 2014 DC 10/17 IV 2208 Tramadol HCl 50 MG Q6P PRN 10/17 PO 0341 Results Last 48 Hrs of Labs/Mics: Laboratory Tests 10/19/17 0624: Haptoglobin Pending 10/19/17 0624: Anion Gap 12, Estimated GFR 25 L, BUN/Creatinine Ratio 18.8, Lactate Dehydrogenase 381, CBC w Diff NO MAN DIFF REQ, RBC 3.03 L, MCV 82.5, MCH 27.1, MCHC 32.8 L, RDW 15.5 H, MPV 9.3, Gran % 74.3, Lymphocytes % 12.1 L, Monocytes % 10.6 H, Eosinophils % 2.6, Basophils % 0.4, Absolute Granulocytes 7.3 H, Absolute Lymphocytes 1.2, Absolute Monocytes 1.0 H, Absolute Eosinophils 0.3, Absolute Basophils 0 10/18/17924: Anion Gap 10, Estimated GFR 28 L, BUN/Creatinine Ratio 22.2 10/17/172154: Iron 14 L, TIBC 305, Ferritin 103.0, Vitamin B12 664, Folate 6.1, Cortisol PM Sample 15.2 H 10/17/172029: Cortisol PM Sample Cancelled 10/17/172028: Methadone Screen Cancelled, Barbiturate Screen Cancelled, Ur Phencyclidine Scrn Cancelled, Amphetamines Screen Cancelled, U Benzodiazepines Scrn Cancelled, Urine Cocaine Screen Cancelled, Urine Cannabis Screen Cancelled, Urine Color Cancelled, Urine Clarity Cancelled, Urine pH Cancelled, Ur Specific [place] Cancelled, Urine Protein Cancelled, Urine Ketones Cancelled, Urine Nitrite Cancelled, Urine Bilirubin Cancelled, Urine Urobilinogen Cancelled, Ur Leukocyte Esterase Cancelled, Ur Microscopic Cancelled, Urine Hemoglobin Cancelled, Urine Glucose Cancelled 10/17/17 2017: Urine Opiates Screen < 100.00, Methadone Screen < 40, Barbiturate Screen < 60, Ur Phencyclidine Scrn < 6.00, Amphetamines Screen < 100, U Benzodiazepines Scrn < 85, Urine Cocaine Screen < 50, Urine Cannabis Screen < 5.00, Urinalysis MOD H , Urine Color YEL, Urine Clarity CLEAR, Urine pH 6.0, Ur Specific [place] 1.025, Urine Protein 30 H, Urine Ketones NEG, Urine Nitrite NEG, Urine Bilirubin NEG, Urine Urobilinogen 0.2, Ur Leukocyte Esterase NEG, Ur Microscopic SEDIMENT EXAMINED, Urine RBC 1-3, Urine WBC RARE, Ur Epithelial Cells RARE, Hyaline Casts RARE H, Urine Mucus FEW, Urine Hemoglobin NEG, Urine Glucose NEG 10/17/17 2010: Virus Culture Pending 10/17/17 1336: Anion Gap 11, Estimated GFR 25 L, BUN/Creatinine Ratio 20.4, Glucose 112 H, Calcium 8.7, Total Bilirubin 0.2, AST 36, ALT 78 H, Alkaline Phosphatase 83, Troponin I 0.04, Total Protein 6.5, Albumin 3.2 L, Globulin 3.3, Albumin/ Globulin Ratio 1.0 L, PT 12.8 H, INR 1.22 H, APTT 25, CBC w Diff NO MAN DIFF REQ, RBC 3.39 L, MCV 82.6, MCH 27.2, MCHC 33.0, RDW 15.4 H, MPV 8.2, Gran % 75.6 H, Lymphocytes % 11.6 L, Monocytes % 10.8 H, Eosinophils % 1.4, Basophils % 0.6, Absolute Granulocytes 7.0 H, Absolute Lymphocytes 1.1 L, Absolute Monocytes 1.0 H, Absolute Eosinophils 0.1, Absolute Basophils 0.1 Microbiology 10/17 2130 NASOPHARYN: Influenza Virus A & B Rapid Smear - COMP Assessment/Plan Assessment/Plan Assessment: 1. Status post recent AAA repair, no leak seen on ultrasound 2. Presyncope with hypotension, improved. Now with elevated blood pressure. 3. Paroxysmal SVT and nonsustained VT seen on telemetry Plan: * Increase Toprol-XL to 50 mg daily for control of tachycardia and hypertension. * Continue to monitor on telemetry for further arrhythmias. * Echocardiogram is pending. Continue telemetry? Yes
[2017-10-19 14:33] VITALS: BP 142/70
[2017-10-19 22:01] VITALS: BP 159/90
[2017-10-20 06:30] VITALS: BP 152/60
--- NOTE | 2017-10-20 07:37 | PN- Housestaff ---
See Addendum Subjective Follow-up For: AAA Chronic back pain Orthostatic hypotension Nonsustained VT/SVT Tele-Events Since Last Visit: SR, PVC HR 68-88 Subjective: Patient reports back pain but states it temporarily resolves with pain meds. No events overnight. Review of Systems Constitutional: Reports: see HPI. Objective Last 24 Hrs of Vital Signs/I&O Vital Signs Date Time Temp Pulse Resp B/P B/P Pulse O2 O2 Flow FiO2 Mean Ox Delivery Rate 10/20 0806 77 152/60 10/20 0630 99.5 77 20 152/60 96 10/19 2201 99.1 81 16 159/90 97 10/19 1433 98.1 64 14 142/70 99 Room Air Intake & Output 10/20 1600 10/20 0800 10/20 0000 Intake Total 200 200 Output Total 350 350 Balance -150 -150 Intake, Oral 200 200 Output, Urine 350 350 Physical Exam General Appearance: Alert, Oriented X3, Cooperative, No Acute Distress HEENT: Atraumatic, PERRLA, EOMI Neck: Supple Cardiovascular: Regular Rate, Normal S1, Normal S2 Lungs: Clear to Auscultation, Normal Air Movement Abdomen: Normal Bowel Sounds, Soft, No Tenderness Neurological: Normal Tone, Sensation Intact, Cranial Nerves 3-12 NL Extremities: Full ROM Current Medications: Current Medications Sig/Som Start time Last Medication Dose Route Stop Time Status Admin Atorvastatin Calcium 5 MG 1700 10/18 1700 AC 10/19 PO 1708 Gabapentin 300 MG BID 10/17 220 AC 10/20 PO 0806 Heparin Sodium 5,000 UNIT Q8 10/18 2199 AC 10/20 (Porcine) SC 0550 Lidocaine 1 PAT DAILY 10/17 2026 AC 10/20 EXT 0806 Metoprolol Succinate 50 MG DAILY 10/20 1000 AC 10/20 PO 0806 Metoprolol Succinate 25 MG DAILY 10/18 1000 DC 10/19 PO 0833 Oxycodone/ 1 TAB Q6P PRN 10/17 214 AC 10/20 Acetaminophen PO 0805 Tramadol HCl 50 MG Q6P PRN 10/17 2030 AC 10/19 PO 2215 Last 24 Hrs of Lab/Tony Results Last 24 Hrs of Labs/Mics: Laboratory Tests 10/20/17 0611: Anion Gap 11, Estimated GFR 28 L, BUN/Creatinine Ratio 18.7, CBC w Diff NO MAN DIFF REQ, RBC 3.17 L, MCV 82.1, MCH 27.1, MCHC 33.0, RDW 15.2 H, MPV 9.3, Gran % 68.6, Lymphocytes % 16.8 L, Monocytes % 10.7 H, Eosinophils % 3.5, Basophils % 0.4, Absolute Granulocytes 5.9, Absolute Lymphocytes 1.5, Absolute Monocytes 0.9 H, Absolute Eosinophils 0.3, Absolute Basophils 0 Orders ECHO Findings: CONCLUSIONS 1. Moderate aortic sclerosis is present with no valvular stenosis or insufficiency. 2. Mild thickening of the mitral leaflets is present with mild annular calcification and minimal mitral insufficiency with mild left atrial enlargement. 3. No pericardial fluid was detected on the study. 4. The left ventricular chamber size and systolic function are normal with no resting wall motion abnormalities. LVEF 55-60% 5. Mild tricuspid insufficiency is present with minimal pulmonic insufficiency and no evidence of pulmonary hypertension. 6. No prior study was available for comparison. Anthony James M.D. (Electronically Signed) Final Date: 20 October 2017 07:43 Assessment/Plan Assessment: Mr. Santa is a 77-year-old male with a past medical history significant for nicotine dependence (1/2 PPD x > 40 yrs), AAA repair with multiple stent placement, CVA3, CKD, HTN, HLD, BL CEA (3 yrs ago), chronic back pain who presented to the ED with severe hypotension, weakness and back pain. Problem List: 1. Orthostatic Hypotension on admission - resolved 2. Chronic Compression Fracture at L4 3. History of CKD Stage IV 4. History of HTN and CVA 5. Nonsustained SVT Plan: * His chronic back pain is likely exacerbated in the context of his enlarging AAA. * Vascular surgery recommendations appreciated * Echocardiogram pending * Patient is refusing surgery or further imaging at this time. * Was evaluated by neurosurgery and recommend no intervention at this time. * Orthostatic vitals q8. * Neuro recs appreciated. * Diet: Heart Healthy * DVT Prophylaxis: SC Heparin * Code: Full Code Problem List: 1. Back pain 2. Multifactorial gait disorder Pain Ratin Pain Location: Back Pain Goal: Pain 7 or less Pain Plan: Tramadol, Oxycodone Tomorrow's Labs & Rationales: None
--- NOTE | 2017-10-20 07:44 | ECHOCARDIOGRAM REPORT ---
PILI LINDSEY Age: 77 : 1940 Gender: M Exam Date: 10/19/2017 16:24 Exam Location: [place] Ht (in): 71 Wt (lb): 165 BSA: 1.94 BP: 142 / 70 Ordering Physician: Melissa Beyer MD Referring Physician: Anthony James MD Technologist: Hayley Patel [facility] Room Number: [id number] Indications: HYPOTENSION Rhythm: Sinus Technical Quality: Fair FINDINGS Left Ventricle Normal size left ventricle. No obvious regional wall motion abnormalities. Normal left ventricular ejection fraction estimated at 55-60%. Right Ventricle Right ventricle not well visualized, grossly normal. Right Atrium Normal right atrial size. Left Atrium Mild left atrial dilatation. Mitral Valve Mitral valve thickened. Mitral annular calcification. Trace to mild mitral regurgitation. Aortic Valve Trileaflet aortic valve. Diffuse thickening (sclerosis) of the aortic valve cusps without reduced excursion. No aortic stenosis. No aortic regurgitation. Tricuspid Valve Tricuspid valve not well visualized, grossly normal. Mild tricuspid regurgitation. Right ventricular systolic pressure estimated at 38 mmHg. Pulmonic Valve Structurally normal pulmonic valve. Trace pulmonic regurgitation. Pericardium No pericardial effusion. Great Vessels Normal size aortic root and proximal ascending aorta. CONCLUSIONS 1. Moderate aortic sclerosis is present with no valvular stenosis or insufficiency. 2. Mild thickening of the mitral leaflets is present with mild annular calcification and minimal mitral insufficiency with mild left atrial enlargement. 3. No pericardial fluid was detected on the study. 4. The left ventricular chamber size and systolic function are normal with no resting wall motion abnormalities. 5. Mild tricuspid insufficiency is present with minimal pulmonic insufficiency and no evidence of pulmonary hypertension. 6. No prior study was available for comparison. Anthony James M.D. (Electronically Signed) Final Date: 20 October 2017 07:43 MEASUREMENTS (Male / Female) Normal Values 2D ECHO LV Diastolic Diameter PLAX 4.5 cm 4.2 - 5.9 / 3.9 - 5.3 cm LV Systolic Diameter PLAX 3.7 cm 2.1 - 4.0 cm LV Fractional Shortening PLAX 17.8 % 25 - 46 % LV Ejection Fraction 2D Teich 37.1 % IVS Diastolic Thickness 1.3 cm LVPW Diastolic Thickness 1.3 cm LV Relative Wall Thickness 0.6 RV Internal Dim ED PLAX 2.8 cm 1.9 - 3.8 cm LVOT Diameter 2.2 cm Aortic Root Diameter 3.0 cm LA Systolic Diameter LX 3.9 cm 3.0 - 4.0 / 2.7 - 3.8 cm LA Volume 42.0 cm 18 - 58 / 22 - 52 cm Ascending Aorta Diameter 3.2 cm DOPPLER AV Peak Velocity 126.0 cm/s AV Peak Gradient 6.4 mmHg AV Mean Velocity 87.8 cm/s AV Mean Gradient 4.0 mmHg AV Velocity Time Integral 28.9 cm LVOT Peak Velocity 74.4 cm/s LVOT Peak Gradient 2.2 mmHg LVOT Mean Velocity 47.4 cm/s LVOT Mean Gradient 1.0 mmHg LVOT Velocity Time Integral 16.3 cm LVOT Stroke Volume 62.0 cm AV Area Cont Eq vti 2.1 cm AV Area Cont Eq pk 2.2 cm MV Peak Velocity 87.8 cm/s MV Peak Gradient 3.1 mmHg MV Mean Velocity 50.9 cm/s MV Mean Gradient 1.0 mmHg Mitral E Point Velocity 75.5 cm/s Mitral A Point Velocity 74.0 cm/s Mitral E to A Ratio 1.0 MV PHT Velocity 90.2 cm/s MV Deceleration Mcdonough 235.0 cm/s MV Pressure Half Time 115.1 ms MV Area PHT 1.9 cm MV Deceleration Time 335.0 ms TR Peak Velocity 271.0 cm/s TR Peak Gradient 29.4 mmHg Right Atrial Pressure 10.0 mmHg Pulmonary Artery Systolic Pressu 39.4 mmHg Right Ventricular Systolic Press 39.4 mmHg PV Peak Velocity 108.0 cm/s PV Peak Gradient 4.7 mmHg PV Mean Velocity 69.8 cm/s PV Mean Gradient 2.0 mmHg PV Velocity Time Integral 24.8 cm LV E' Lateral Velocity 7.6 cm/s Mitral E to LV E' Lateral Ratio 9.9 LV E' Septal Velocity 6.1 cm/s Mitral E to LV E' Septal Ratio 12.3
[2017-10-20 08:18] LABS: ABSOLUTE BASOPHIL COUNT 0 /CUMM (0.0-0.2); ABSOLUTE EOSINOPHIL COUNT 0.3 /CUMM (0.0-0.7); ABSOLUTE GRANULOCYTE CT 5.9 /CUMM (1.4-6.5); ABSOLUTE LYMPH COUNT 1.5 /CUMM (1.2-3.4); ABSOLUTE MONOCYTE COUNT 0.9 /CUMM (0.10-0.60); BASOPHIL % 0.4 % (0.0-2.0); EOSINOPHIL % 3.5 % (0-5); GRANULOCYTE % 68.6 % (42.2-75.2); MEAN CORPUSCULAR HGB 27.1 PG (27.0-31.0); MEAN CORPUSCULAR VOLUME 82.1 FL (80.0-94.0); MEAN PLATELET VOLUME 9.3 FL (7.4-10.4); PLATELET COUNT 226 /CUMM (130-400); RBC DISTRIBUTION WIDTH 15.2 % (11.5-14.5); RED BLOOD CELL CT 3.17 /CUMM (4.70-6.10); WHITE BLOOD CELL COUNT 8.7 /CUMM (4.8-10.8)
[2017-10-20] MEDS ORDERED: LIDODERM1 EACH EXT (08:18)
--- NOTE | 2017-10-20 08:20 | Patient Discharge Instructions ---
Discharge Instructions General Discharge Information You were seen/treated for: Back pain Low blood pressure Aortic aneurysm You had these procedures: none Special Instructions: Follow up with [facility] to make an appointment upon discharge Follow up with the Air Drill Operator-Dr. Keller upon discharge Diet Recommended Diet: Heart Healthy Activity Other activity limits: As tolerated Acute Coronary Syndrome Inclusion Criteria At DC or during hospital stay patient has or had the following: ACS DIAGNOSIS No Discharge Core Measures Meds if any: Prescribed or Continued at Discharge Meds if any: NOT Prescribed or Continued at Discharge Congestive Heart Failure Inclusion Criteria At DC or during hospital stay patient has or had the following: CHF DIAGNOSIS No Discharge Core Measures Meds if any: Prescribed or Continued at Discharge Meds if any: NOT Prescribed or Continued at Discharge Cerebrovascular accident Inclusion Criteria At DC or during hospital stay patient has or had the following: CVA/TIA Diagnosis No Discharge Core Measures Meds if any: Prescribed or Continued at Discharge Meds if any: NOT Prescribed or Continued at Discharge Venous thromboembolism Inclusion Criteria VTE Diagnosis No VTE Type NONE VTE Confirmed by (Test) NONE Discharge Core Measures - Per Current guidelines, there needs to be overlap - treatment for the first 5 days of Warfarin therapy. - If discharged on Warfarin prior to 5 days of - overlap therapy, the patient will need to be - assessed for post discharge needs including - *Post discharge parental anticoagulation - *Warfarin and/or parental anticoagulation education - *Follow up date to check INR post discharge At least 5 days overlap therapy as Inpatient No Meds if any: Prescribed or Continued at Discharge Note: Overlap Therapy is Warfarin and Anticoagulant Meds if any: NOT Prescribed or Continued at Discharge
[2017-10-20] MEDS ORDERED: TOPROL XL25 M1 PO ×2 (08:21→08:23)
[2017-10-20] MEDS ORDERED: TOPROL XL50 M1 PO ×2 (08:22→08:26)
--- NOTE | 2017-10-20 13:07 | Discharge Summary ---
Visit Information Visit Dates Admission Date: 10/17/17 Discharge Date: 10/20/2017 Hospital Course Course Attending Physician: Heath Mejia MD Primary Care Physician: Rohith Andrea MD Hospital Course: Patient is a 77-year-old male with significant past medical history of multiple CVAs, hypertension, chronic kidney disease (diagnosed 3 years ago was on steroid therapy does not know the diagnosis, does not need a dialysis), chronic back pain, recently underwent AAA repair(09/27/2017 at [facility]), presented with an episode of hypotension, diagnosed by [facility] coming to home, and sent to [place] [facility] for further evaluation and management. ED course - Vital signs-temperature 97.2, pulse 78, respiratory rate 20, blood pressure 137/ 64, SPO2 100% on room air.Blood workup showed-hemoglobin 9.2, hematocrit 28.0, platelet count 318, sodium 141, potassium 4.5, chloride 105, BUN 51, creatinine 2.5, GFR 25, glucose 112, total bilirubin 0.2, AST 36, ALT 78, alkaline phosphatase 83, troponin I0.04, total protein 6.5, albumin 3.2, globulin 3.3, albumin/globulin ratio 1.0, PT/INR 12.8/1.22, U tox is negative, UA was showing 30 protein. EKG showed-heart rate 81, QTc 451, normal sinus rhythm, no ST-T wave changes. Transient episode of hypotension, probable volume depletion leading to orthostatic hypotension -No evidence of aneurysm leak (known stable Fusiform abdominal aortic aneurysm 7.1 cm in diameter) We admitted the patient to the telemetry floor. We started him on IV normal saline. CT of th e abdomen/pelvis without contrast showed a fusiform abdominal aortic aneurysm measuring 7.1 cm in diameter. Stents were present in the aorta, SMA, renal arteries and common iliac arteries. There was no evidence of a hematoma/bleed/leak. We did discuss with Dr. Warren (Vascular Surgery) over the phone who advised for CT abdomen pelvis with contrast. It was not done because patient was having high creatinine so he suggested an ultrasound of the abdomen aorta. The ultrasound showed increasing luminal diameter of the [place] AAA and Circumferential thrombus surrounding the aortic stent. As the patient was hemodynamically stable, it was decided that no intervention needed at this time and that he needed outpatient follow-up at [facility] for further imaging as needed. (Note- the patient's girlfriend indicated he was not returning to the [place] and thus he may need to be set up with the [facility] [place] for further follow-up when discharged). The patient was significantly orthostatic on presentation and on day of planned discharge he remained orthostatic (blood pressure lying 182/84, sitting 175/84, standing 73/48). The patient had already been hydrated the patient and it was suggested to start midodrine (ordered). He will need orthostatic vitals monitored at [facility]. Paroxysmal SVT/nonsustained VT on telemetry - Cardiology consult was obtained (Dr. Keller). Echocardiogram was done which showed LVEF of 55-60%.Advised to increase the Toprol-XL to 50 mg daily. Advised to follow-up with PCP/matrix inspector within a week of discharge. 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 CT lumbar spine does not show any new fracture. There was chronic compression fracture at L4 and spondylo-cysts at L5-S1 and bilateral L5 foraminal entrapment. Neurosurgery opinion as he was not having acute sciatica discomfort nor weakness in his legs, he advised that patient does not need any active neurosurgical intervention. He also advised him to follow-up at the [facility]. We discharged patient on pain medication. Advised to avoid narcotics as possible. The patient desires possible steroid injection as treatment, however will need to arrange this as an outpatient. Status Post Fall- No evidence of CVA - The outpatient presented with a fall. We did CT scan of the head which does not show any acute intracranial abnormality though there were chronic bilateral basal ganglia and left thalamic lacunar infarct and mild small vessel ischemic changes in a background of mild brain parenchymal volume loss. We did physical therapy, and sent patient to rehabilitation for further management. The patient did c/o some difficulty breathing and mild cough- workup was negative for significant findings Patient was having cough and difficulty in breathing since couple of days. He is having history of loss of appetite, feeling more cold. Chest CT did not show any evidence of infection, rapid flu and all blood cultures were negative. We treated him symptomatically. Anemia of chronic disease - His hemoglobin is 9.2.His fecal for occult blood was negative. His serum iron 14 ,TIBC 305, S ferritin -103. Vit B12-664, folic acid -6. We started him on iron preparation and multivitamin supplementation. We advised to follow-up with the PCP and repeat CBC within a month of discharge. CKD - We monitored renal function and gave IV fluids. Allergies: Coded Allergies: No Known Allergies (04/22/16) Disposition Summary Disposition Principal Diagnosis: Transient episode of hypotension, ruled out aneurysm leak, possibly volume depletion leading to orthostatic hypotension. 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 Additional Diagnosis: History of AAA repair 09/27/2017 History of CVA x 2 (first time he cannot write, second time he was having weakness in both of his lower legs) History of right-sided carotid artery stent -3 years ago History of hypertension History of chronic kidney disease -diagnosed 2 years ago, was on high-dose steroid, does not know his diagnosis, does not need a diagnosis History of degenerative disc disease History of appendicectomy, History of cholecystectomy History of chronic constipation Discharge Disposition: SNF Discharge Instructions General Discharge Information Code Status: Full Code Patient's Diet: Heart healthy diet as Patient's Activity: As tolerated Follow-Up Instructions/Appts: Please follow-up with your PCP within invite week of discharge Please follow-up with your matrix inspector within a week of discharge Please follow-up with the vascular surgery Follow-up with the neurologist for further management of the back pain Medications at Discharge Discharge Medications: Stop taking the following medications: Metoprolol Succ XL (Toprol XL) 25 MG TAB ORAL DAILY Continue taking these medications: Gabapentin (Neurontin) 300 MG CAPSULE 1 Capsule ORAL TWICE DAILY Comments: Last Taken: 10/20/17 Time: 08 Atorvastatin Calcium (Atorvastatin Calcium) 10 MG TABLET 0.5 Tablet ORAL DAILY Comments: Last Taken: 10/19/17 Time: 1708 Start taking the following new medications: Lidocaine (Lidoderm) 5 % ADH..PATCH 1 Patch ON SKIN DAILY Qty = 7 No Refills Comments: Last Taken: 10/20/17 Time: 08 Metoprolol Succ XL (Toprol Xl) 50 MG TAB 50 Milligram ORAL DAILY Qty = 30 No Refills Comments: Last Taken: 10/20/17 Time: 08 Tramadol HCl (Tramadol HCl) 50 MG TABLET 1 Tablet ORAL THREE TIMES A DAY NEEDED Qty = 21 No Refills Comments: Last Taken: 10/19/17 Time: 2214 Ferrous Sulfate (Ferrous Sulfate) 325 MG (65 MG IRON) TABLET 1 Tablet ORAL TWICE DAILY Qty = 60 No Refills Folic Acid (Folic Acid) 1 MG TABLET 1 Tablet ORAL DAILY Qty = 30 No Refills Midodrine HCl (Midodrine HCl) 5 MG TABLET 1 Tablet ORAL DAILY Qty = 30 No Refills Comments: NOT GIVEN IN HOSPITAL Copies To: Scotty Keller MD Attending MD Review Statement Documenting Attending: Heath Mejia MD Other Findings: The patient was seen and discussed with house staff. Agree with plan of care to discharge to [facility]. Will need back pain addressed as OP. May consider follow-up care at [facility] or [facility] [place]. There are transportation issues as girlfriend has no car.
[2017-10-20] MEDS ORDERED: TRAMADOL HCL50 M1 PO (13:41)
[2017-10-20 13:52] VITALS: BP 152/60
[2017-10-20] MEDS ORDERED: FOLIC ACID1 M1 PO (14:19)
[2017-10-20] MEDS ORDERED: FERROUS SULFAT325 M3 PO (14:19)
[2017-10-20] MEDS ORDERED: MIDODRINE HCL5 M1 PO (14:47)
[2017-10-20 14:51] VITALS: BP 158/74
--- NOTE | 2017-10-20 16:15 | PN- Cardiology ---
Subjective Subjective: Resting comfortably. Cardiac status stable. No new CV symptoms. Objective Vital Signs and I&Os Vital Signs Date Time Temp Pulse Resp B/P B/P Pulse O2 O2 Flow FiO2 Mean Ox Delivery Rate 10/20 1451 99.3 68 18 158/74 90 Room Air 10/20 1352 99.5 77 20 152/60 10/20 1058 Room Air 10/20 0806 77 152/60 10/20 0630 99.5 77 20 152/60 96 10/19 2201 99.1 81 16 159/90 97 Intake & Output 10/20 1600 10/20 0800 10/20 0000 10/19 1600 10/19 0800 10/19 0000 Intake Total 400 200 200 450 200 240 Output Total 300 350 350 675 Balance 100 -150 -150 450 -475 240 Intake, Oral 400 200 200 450 200 240 Output, Urine 300 350 350 675 Physical Exam: General Appearance Alert, Oriented X3, Cooperative HEENT Atraumatic, PERRLA, EOMI, dry mucous membranes Neck Supple, JVP normal, carotid shows normal bilaterally. No bruits. No thyromegaly. Cardiovascular Regular Rate, Normal S1, Normal S2, 1/6 systolic murmur left upper sternal border Lungs Clear to Auscultation and percussion bilaterally Abdomen Normal Bowel Sounds, Soft, No Tenderness Extremities No Edema Vascular Femoral pulses palpable, BL femoral healed incisions without drainage, hematoma or warmth Current Medications: Current Medications Sig/Som Start time Last Medication Dose Route Stop Time Status Admin Atorvastatin Calcium 5 MG 1700 10/18 1700 AC 10/19 PO 1708 Gabapentin 300 MG BID 10/17 2199 AC 10/20 PO 0806 Heparin Sodium 5,000 UNIT Q8 10/18 2199 AC 10/20 (Porcine) SC 1302 Lidocaine 1 PAT DAILY 10/17 2026 AC 10/20 EXT 0806 Metoprolol Succinate 50 MG DAILY 10/20 1000 AC 10/20 PO 0806 Oxycodone/ 1 TAB Q6P PRN 10/17 2145 AC 10/20 Acetaminophen PO 0805 Patient Medication 1 ED ONE ONE 10/20 1430 DC 10/20 Teaching ED 10/20 1431 1453 Tramadol HCl 50 MG Q6P PRN 10/17 2030 AC 10/19 PO 2215 Results Last 48 Hrs of Labs/Mics: Laboratory Tests 10/20/17 0611: Anion Gap 11, Estimated GFR 28 L, BUN/Creatinine Ratio 18.7, CBC w Diff NO MAN DIFF REQ, RBC 3.17 L, MCV 82.1, MCH 27.1, MCHC 33.0, RDW 15.2 H, MPV 9.3, Gran % 68.6, Lymphocytes % 16.8 L, Monocytes % 10.7 H, Eosinophils % 3.5, Basophils % 0.4, Absolute Granulocytes 5.9, Absolute Lymphocytes 1.5, Absolute Monocytes 0.9 H, Absolute Eosinophils 0.3, Absolute Basophils 0 10/19/17623: Haptoglobin Pending 10/19/17623: Anion Gap 12, Estimated GFR 25 L, BUN/Creatinine Ratio 18.8, Lactate Dehydrogenase 381, CBC w Diff NO MAN DIFF REQ, RBC 3.03 L, MCV 82.5, MCH 27.1, MCHC 32.8 L, RDW 15.5 H, MPV 9.3, Gran % 74.3, Lymphocytes % 12.1 L, Monocytes % 10.6 H, Eosinophils % 2.6, Basophils % 0.4, Absolute Granulocytes 7.3 H, Absolute Lymphocytes 1.2, Absolute Monocytes 1.0 H, Absolute Eosinophils 0.3, Absolute Basophils 0 Assessment/Plan Assessment/Plan Assessment: Assessment 1. Hypotension likely multifactorial - now improved. 2. Recent AAA repair with aneurysm now measuring 7.1 cm 3. Acute worsening of chronic back pain 4. Gait instability, unable to ambulate degenerative disc disease with mass effect on L5 nerve roots 5. Normocytic anemia 6. H/o CVA and HTN 7. CKD stage 4 8.Non sustained PSVT and brief WCT noted on telemetry Plan: * Continue Toprol-XL to 50 mg daily for control of SVT and HTN. * Only brief NSSVT noted over last 24 hours, The patient will need further followup with cardiology as outpatient as well * Echocardiogram is pending. Continue telemetry? No
== END 2017-10-20 17:00 | DRG 641 ==
LOC: ERH 12:35 → 1NO 19:22 → ERHI 19:22 → ENRESERV 20:08 → ENTRNSPT 22:10 → EDTRNSPT 22:13 → EDTRNSPTSTS 22:13 → 1NO 22:19 → CMPTRNSPT 22:35 → 1NO 10-18 09:36 → ENTRNSPT 10-20 16:33 → EDTRNSPT 10-20 16:55 → EDTRNSPTSTS 10-20 16:55 → 1NO 10-20 17:00 → CMPTRNSPT 10-20 19:32
PROVIDERS: Internal Medicine; Physician Assistant Medical; Student in an Organized Health Care Education/Training Program
DX: E86.0 Dehydration (principal); I47.2 Ventricular tachycardia; N18.4 Chronic kidney disease, stage 4 (severe); I47.1 Supraventricular tachycardia; J41.0 Simple chronic bronchitis; I95.1 Orthostatic hypotension; D64.9 Anemia, unspecified; I69.349 Monoplegia of lower limb following cerebral infarction affecting unspecified side; I12.9 Hypertensive chronic kidney disease with stage 1 through stage 4 chronic kidney disease, or unspecified chronic kidney disease; I71.4 Abdominal aortic aneurysm, without rupture; G89.29 Other chronic pain; M54.9 Dorsalgia, unspecified; R26.89 Other abnormalities of gait and mobility; M47.897 Other spondylosis, lumbosacral region; F17.200 Nicotine dependence, unspecified, uncomplicated
CPT/HCPCS: 1NSP; 36415; 36592; 74176; 76770; 80307; 81001; 82436; 83010; 87040; 87070; 87804; 87804-59; 93005; 93010; 93306; 97110-GO; 97161-GP; 97530-GO; J1644

== ENCOUNTER 2017-12-01 19:01 | Emergency (ER) | payer OTHER, MEDICARE ==
[~2017-12-01] VITALS: Ht 182.9 cm; Wt 68.0 kg
[~2017-12-01 19:01] MED LIST changes: +ATORVASTATIN CA10 M1 PO; +FERROUS SULFAT325 M3 PO; +FOLIC ACID1 M1 PO; +LIDODERM1 EACH EXT; +MIDODRINE HCL5 M1 PO; +NEURONTIN300 M1 PO; +TOPROL XL25 M1 PO; +TOPROL XL50 M1 PO; +TRAMADOL HCL50 M1 PO
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
--- NOTE | 2017-12-01 20:15 | CT SCAN REPORT ---
EXAMINATION: CT HEAD WITHOUT CONTRAST CT CERVICAL SPINE WITHOUT CONTRAST CLINICAL INFORMATION: Pain. Trauma. COMPARISON: Head CT from 10/17/2017 TECHNIQUE: Contiguous axial imaging was performed from the skull base to vertex without intravenous administration of contrast. In addition, helical noncontrast CT imaging was acquired through the cervical spine and source images were reviewed along with axial reconstructions and sagittal and coronal MPRs. DLP: 1007 mGy-cm FINDINGS: HEAD: There is no hemorrhage, edema, mass effect, hydrocephalus, extra-axial collection, shift of the normally midline structures, or evolving territorial infarct. Moderate generalized prominence of the ventricles, sulci, and extra-axial series of spaces is stable. Mild hypoattenuation in the bihemispheric white matter is stable. Chronic lacunar infarcts in the thalami bilaterally are noted. No acute osseous abnormality. There are small retention cysts in the maxillary sinuses bilaterally. The nasal cavity is clear with rightward nasal septal deviation and spurring. The nasopharynx is symmetric. The mastoid air cells and middle ear cavities are clear. The temporomandibular joints articulate normally. No acute soft tissue abnormalities. Mild soft tissue thickening in the subcutaneous tissues in the right medial canthal region appears stable. The orbits appear unremarkable. CERVICAL SPINE: There is no evidence of acute fracture or traumatic subluxation. There is a well-corticated ossific density within the left side of the canal at the C1 level measuring obliquely 1.3 x 0.9 cm. This mildly flattens the left aspect of the ventral thecal sac without definitive mass effect upon the cord. No donor site is definitively visualized. The atlantoaxial and atlantooccipital articulations are maintained. The dens is intact. Vertebral body height is maintained. Sagittal alignment is maintained. There is moderate intervertebral disc height loss with endplate spurring at C5-C6. There are scattered anterior osteophytes visualized at several levels including a bridging anterior osteophyte at C2-C3. There is mild bilateral facet arthropathy. There is an ossific density along the superior endplate of C4 which is suspected to reflect a small focus of ossification of the posterior longitudinal ligament. This appears to mild to moderately narrow the canal. There is also mild to moderate canal stenosis at C5-C6. The foramina demonstrate mild narrowing most notable at C5-C6. There is no prevertebral soft tissue swelling. No acute soft tissue abnormalities. No cervical adenopathy. There is a left carotid stent visualized. The lung apices demonstrate paraseptal and centrilobular emphysema IMPRESSION: 1. No acute intracranial pathology. Mild chronic microangiopathy, few chronic lacunar infarcts, and moderate chronic microangiopathy. 2. No CT evidence of acute cervical spine fracture or traumatic subluxation. There is cervical spondylosis most notable at C5-C6, and a small focus of ossification of the posterior longitudinal ligament at the superior endplate of C4. There is a well-corticated 1.3 x 0.9 cm ossific density within the left side of the cervical canal the C1 level appearing chronic. This creates mild mass effect on the thecal sac without high-grade canal stenosis.
[2017-12-01 20:29] LABS: ABSOLUTE BASOPHIL COUNT 0 /CUMM (0.0-0.2); ABSOLUTE EOSINOPHIL COUNT 0.2 /CUMM (0.0-0.7); ABSOLUTE GRANULOCYTE CT 6.8 /CUMM (1.4-6.5); ABSOLUTE LYMPH COUNT 1.4 /CUMM (1.2-3.4); ABSOLUTE MONOCYTE COUNT 0.6 /CUMM (0.10-0.60); BASOPHIL % 0.5 % (0.0-2.0); EOSINOPHIL % 2.1 % (0-5); GRANULOCYTE % 75.2 % (42.2-75.2); HEMATOCRIT 27.3 % (42-52); MEAN CORPUSCULAR HGB 26.5 PG (27.0-31.0); MEAN CORPUSCULAR HGB CONC 32.7 G/DL (33.0-37.0); MEAN PLATELET VOLUME 7.8 FL (7.4-10.4); PLATELET COUNT 336 /CUMM (130-400); RBC DISTRIBUTION WIDTH 17.7 % (11.5-14.5); RED BLOOD CELL CT 3.37 /CUMM (4.70-6.10); WHITE BLOOD CELL COUNT 9.1 /CUMM (4.8-10.8)
--- NOTE | 2017-12-01 20:33 | CT SCAN REPORT ---
EXAMINATION: CT CHEST, ABDOMEN, AND PELVIS WITHOUT CONTRAST CLINICAL INFORMATION: Pain. Trauma. Question right-sided rib fracture. COMPARISON: CT chest, abdomen, and pelvis from 10/17/2017 TECHNIQUE: Multidetector volumetric imaging was performed from the thoracic inlet through the pubic symphysis. Sagittal and coronal reformatted images were obtained on the technologist's workstation. 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 LUNGS: There are paraseptal emphysematous changes with some centrilobular emphysema most notable in the lung apices, right more than left. There is biapical pleural-parenchymal scarring. There are mild dependent changes in the central airways are patent. MEDIASTINUM: The heart is normal in caliber. There are coronary calcifications. No pericardial effusion. Mild ectasia of the aortic arch is stable with moderate calcification. No mediastinal hematoma. No evidence of adenopathy. PLEURA: There is a trace right pleural effusion. No pneumothorax. AXILLA: No lymphadenopathy. OSSEOUS STRUCTURES: No thoracic compression deformities. Mild multilevel thoracic spondylosis. There are minimally displaced right-sided rib fractures involving the 10th and 11th ribs posterolaterally. No left-sided rib fractures. Abdomen/pelvis: LIVER, GALLBLADDER, AND BILIARY TREE: The liver is normal in size, shape, and attenuation. Stable 2 cm cyst in the left lobe. No biliary ductal dilatation is present. There has been cholecystectomy. PANCREAS: Unremarkable. SPLEEN: Unremarkable. ADRENAL GLANDS: Unremarkable. KIDNEYS AND URETERS: There are hypoattenuating structures within the right kidney, the largest exophytically arising from the upper pole measuring 5.3 cm, of simple fluid attenuation. There is some vascular calcification in the renal sussy bilaterally. BLADDER: Unremarkable. GASTROINTESTINAL TRACT: The small and large bowel are unremarkable. A few colonic diverticula are visualized without diverticulitis. The appendix is not seen. No free air. No ascites. ABDOMINAL WALL: No significant hernia is appreciated. LYMPH NODES: Normal. VASCULAR: There is a large infrarenal abdominal aortic aneurysm measuring up to 7.1 cm in diameter, with stable configuration of the aorticobiiliac stent grafts. There appears to be fusiform dilatation of both iliac arteries. The configuration is unchanged. Stents are seen in both renal arteries as well as the superior mesenteric artery, also unchanged. PELVIC VISCERA: There is enlargement of the prostate, unchanged. OSSEOUS STRUCTURES: There is stable moderate height loss along the superior endplate of L4. No acute osseous abnormalities in the lumbar region. The pelvic ring appears intact. IMPRESSION: 1. Minimally displaced right 10th and 11th posterolateral rib fractures. Trace adjacent pleural effusion. 2. Otherwise no evidence of acute abnormality in the chest, abdomen, or pelvis. Stable large abdominal aortic and bilateral iliac aneurysms status post aortobiiliac stent grafting. Other stents in the renal arteries and SMA are also stable.
[2017-12-01] MEDS ORDERED: PERCOCET 5-3251 EACH PO (21:46)
[2017-12-02 11:09] VITALS: BP 121/58
[2017-12-02] MEDS ORDERED: TYLENOL WITH C1 EACH PO (11:20)
== END 2017-12-02 13:13 ==
LOC: ERH 19:01
PROVIDERS: Pediatrics
DX: S22.41XA Multiple fractures of ribs, right side, initial encounter for closed fracture (principal); W19.XXXA Unspecified fall, initial encounter; Y92.9 Unspecified place or not applicable; Y93.9 Activity, unspecified; I10 Essential (primary) hypertension; N18.9 Chronic kidney disease, unspecified
CPT/HCPCS: 74176; 81001; 93005; 93010; 96361; 96374; 96375; J0131; J7040

== ENCOUNTER 2017-12-11 15:58 | Inpatient (IN) | payer OTHER ==
[~2017-12-11] VITALS: Ht 180.3 cm; Wt 68.5 kg
[~2017-12-11 15:58] MED LIST changes: -ATORVASTATIN CA10 M1 PO; +ATORVASTATIN CA20 M1 PO; +PERCOCET 5-3251 EACH PO
--- NOTE | 2017-12-11 16:03 | ED GENERAL ADULT ---
History of Present Illness General Chief Complaint: Dizziness Stated Complaint: DIZZY Source: patient Exam Limitations: no limitations Vital Signs & Intake/Output Vital Signs & Intake/Output Vital Signs Date Time Temp Pulse Resp B/P B/P Pulse O2 O2 Flow FiO2 Mean Ox Delivery Rate 12/12 1627 76 146/56 12/12 1456 98.4 73 20 178/64 97 Room Air 12/12 1301 98.2 89 20 141/67 98 Room Air 12/12 0851 72 175/84 12/12 0851 72 175/84 12/12 0554 97.9 70 16 164/79 96 Room Air 12/12 0320 98.9 78 18 126/59 96 Room Air 12/11 2310 68 129/61 12/11 2207 68 129/61 12/11 2034 96.7 82 20 162/70 100 Room Air 12/11 1801 98.3 63 18 154/69 100 Room Air 12/11 1706 Room Air Room Air ED Intake and Output 12/12 0000 12/11 1200 Intake Total 0 Output Total 200 Balance -200 Intake, Oral 0 Output, Urine 200 Patient 0 lb Weight Weight 1<jk`dXk\\[id number] Measurement Method Allergies Uncoded Allergies: "OPIATES" (Mild, HALLUCINATIONS 12/02/17) Reconcile Medications Amlodipine Besylate 5 MG TABLET 1 TAB PO DAILY Hypertension (Reported) Atorvastatin Calcium 20 MG TABLET 1 TAB PO DAILY Heart Health (Reported) Diltiazem HCl (Diltiazem 24HR ER) 120 MG CAP.ER.24H 1 CAP PO DAILY PVC ( Reported) Ferrous Sulfate 325 MG (65 MG IRON) TABLET 1 TAB PO DAILY Restless Legs Lidocaine (Lidoderm) 5 % ADH..PATCH 1 PAT EXT DAILY BACK PAIN Metoprolol Succ XL (Toprol Xl) 50 MG TAB 50 MG PO DAILY blood pressure Midodrine HCl 5 MG TABLET 1 TAB PO BID Blood Pressure Triage Nurses Notes Reviewed? yes Onset: Abrupt Duration: day(s): Timing: recent history HPI: 12/11/17 dizziness 77-year-old man presents to the emergency department for dizziness. The patient is usually followed at the DC. He said he's been having an imbalance between his medications. His blood pressure has been low and then high. He denies any chest pain or shortness of breath. Past History Medical History Any Pertinent Medical History? 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 No Review of Systems Review of Systems Constitutional: Denies: fever. EENTM: Denies: visual changes. Respiratory: Denies: short of breath. Cardiovascular: Denies: chest pain. GI: Denies: abdominal pain. Genitourinary: Reports: no symptoms. Musculoskeletal: Reports: no symptoms. Skin: Reports: no symptoms. Neurological/Psychological: Denies: headache. Hematologic/Endocrine: Reports: bleeding. Immunologic/Allergic: Reports: no symptoms. Physical Exam Physical Exam General Appearance: alert, awake, anxious Head: atraumatic, normal appearance Eyes: Bilateral: normal appearance, PERRL, EOMI. Ears, Nose, Throat: normal pharynx, normal ENT inspection Neck: normal inspection, supple Respiratory: normal breath sounds, chest non-tender, no respiratory distress Cardiovascular: regular rate/rhythm Peripheral Pulses: 4+ radial (R), 4+ radial (L) Gastrointestinal: soft, non-tender Rectal: heme positive stool Back: normal inspection Extremities: pedal edema Neurologic/Psych: no motor/sensory deficits, awake, alert, oriented x 3 Skin: intact, normal color, warm/dry Core Measures ACS in differential dx? No CVA/TIA Diagnosis: No Sepsis Present: No Sepsis Focused Exam Completed? No Progress Differential Diagnoses I considered the following diagnoses in my evaluation of the patient: [Benign positional vertigo, Mnire's disease, symptomatic anemia, orthostatic hypotension, adverse drug reaction, dysrhythmia] Plan of Care: Orders Procedure Date/time Status CBC WITHOUT DIFFERENTIAL 12/13 06 Active BASIC ELECTROLYTES PLUS BUN&CR 12/13 06 Active Heart Healthy Diet 12/12 B Active House Staff 12/12 1119 Active Weight 12/12 0608 Active Vital Signs 12/12 0608 Active Teach/Educate 12/12 0608 Active Pain Treatment and Response 12/12 0608 Active Nutritional Intake, Monitor 12/12 0608 Active Isolation 12/12 0608 Active Intake & Output 12/12 0608 Active Patient Care Conference 12/12 0608 Active Activity/Ambulation 12/12 0608 Active CBC WITHOUT DIFFERENTIAL 12/12 0600 Complete BASIC ELECTROLYTES PLUS BUN&CR 12/12 0600 Complete CORTISOL AM 12/12 0544 Complete PT Evaluate & Treat 12/12 UNK Active Lab Add-on Test 12/12 UNK Active MISTAKE 12/12 UNK Active MISSING MEDICATION FORM 12/12 UNK Active TYPE & SCREEN (NOT X-MATCH) 12/11 2314 Complete TROPONIN LEVEL 12/11 2300 Complete EKG 12/11 230 Active Add-on Test (ER Only) 12/11 2221 Active PROTHROMBIN TIME 12/11 2158 Complete Saline Lock 12/12 2139 Active Pathway - chart 12/12 2139 Active Code Status 12/12 2139 Active MISTAKE 12/11 2128 Active Patient Data 12/12 2119 Active ED Holding Orders 12/11 2054 Active Admit to inpatient 12/11 2054 Active Vital Signs 12/11 2054 Active Code Status 12/11 205 Complete Intake & Output 12/11 1707 Active VTE Mechanical Prophylaxis 12/11 UNK Complete VTE Mechanical Prophylaxis 12/11 UNK Active Nursing Misc 12/11 UNK Complete Current Medications Sig/Som Start time Last Medication Dose Stop Time Status Admin Diltiazem HCl 30 MG Q6 12/12 1800 AC (Cardizem) Atorvastatin Calcium 20 MG 1700 12/12 1700 AC (Lipitor) Metoprolol Succinate 50 MG DAILY 12/12 1448 AC 12/12 (Toprol Xl) 1627 Midodrine 5 MG BID 12/12 0900 AC 12/12 (Pro-Amatine) 0853 Heparin Sodium 5,000 UNIT Q8 12/12 0600 CAN (Porcine) Acetaminophen 650 MG Q6P PRN 12/11 2145 AC (Tylenol) Laboratory Tests 12/12/17 0544: Anion Gap 10, Estimated GFR 26 L, BUN/Creatinine Ratio 19.2, Cortisol AM Sample 5.6, CBC w Diff NO MAN DIFF REQ, RBC 3.00 L, MCV 81.1, MCH 26.1 L, MCHC 32.3 L, RDW 18.1 H, MPV 7.7, Gran % 67.9, Lymphocytes % 19.9 L, Monocytes % 8.0, Eosinophils % 3.8, Basophils % 0.4, Absolute Granulocytes 5.3, Absolute Lymphocytes 1.6, Absolute Monocytes 0.6, Absolute Eosinophils 0.3, Absolute Basophils 0 12/11/17 2255: Troponin I 0.01 12/11/17 1705: Anion Gap 10, Estimated GFR 23 L, BUN/Creatinine Ratio 17.8, Glucose 97, Calcium 9.0, Total Bilirubin 0.3, AST 10 L, ALT 18 L, Alkaline Phosphatase 88, Troponin I < 0.01, Total Protein 6.3, Albumin 3.2 L, Globulin 3.1, Albumin/ Globulin Ratio 1.0 L, PT 12.2, INR 1.12, CBC w Diff NO MAN DIFF REQ, RBC 2.98 L, MCV 81.4, MCH 26.8 L, MCHC 32.9 L, RDW 18.3 H, MPV 7.8, Gran % 72.1, Lymphocytes % 15.3 L, Monocytes % 8.2, Eosinophils % 3.9, Basophils % 0.5, Absolute Granulocytes 5.9, Absolute Lymphocytes 1.3, Absolute Monocytes 0.7 H, Absolute Eosinophils 0.3, Absolute Basophils 0 Initial ED EKG: NSR Prior EKG: unchanged Departure Departure Disposition: STILL A PATIENT Condition: Stable Clinical Impression Primary Impression: Anemia Secondary Impressions: GI bleed Referrals: Unknown (PCP/Family) Departure Forms: Customer Survey General Discharge Information Prescriptions: Current Visit Scripts Midodrine HCl 1 TAB PO BID #30 TAB Ferrous Sulfate 1 TAB PO DAILY #60 TAB Admission Note Spoke With: Scottie FLOREZ,[facility] Documentation of Exam: Documentation of any treatments & extenuating circumstances including Concerns Regarding Discharge (functional status, medication knowledge or non-compliance, living conditions, etc.) that warrant an admission rather than observation: [The patient needs admission for serial hemoglobin and hematocrit, PT evaluation, extensive review of medications, consider cardiology consultation, consider GI consult] I attempted to walk the patient. He remains unsteady and was unable to ambulate on his own Critical Care Note Critical Care Note Critical Care Time: non-applicable
[2017-12-11 17:24] LABS: ABSOLUTE BASOPHIL COUNT 0 /CUMM (0.0-0.2); ABSOLUTE EOSINOPHIL COUNT 0.3 /CUMM (0.0-0.7); ABSOLUTE GRANULOCYTE CT 5.9 /CUMM (1.4-6.5); ABSOLUTE LYMPH COUNT 1.3 /CUMM (1.2-3.4); ABSOLUTE MONOCYTE COUNT 0.7 /CUMM (0.10-0.60); BASOPHIL % 0.5 % (0.0-2.0); EOSINOPHIL % 3.9 % (0-5); GRANULOCYTE % 72.1 % (42.2-75.2); HEMATOCRIT 24.2 % (42-52); MEAN CORPUSCULAR HGB 26.8 PG (27.0-31.0); MEAN CORPUSCULAR HGB CONC 32.9 G/DL (33.0-37.0); MEAN CORPUSCULAR VOLUME 81.4 FL (80.0-94.0); MEAN PLATELET VOLUME 7.8 FL (7.4-10.4); PLATELET COUNT 272 /CUMM (130-400); RBC DISTRIBUTION WIDTH 18.3 % (11.5-14.5); RED BLOOD CELL CT 2.98 /CUMM (4.70-6.10); WHITE BLOOD CELL COUNT 8.2 /CUMM (4.8-10.8)
--- NOTE | 2017-12-11 17:46 | CT SCAN REPORT ---
EXAMINATION: CT HEAD WITHOUT CONTRAST CLINICAL INFORMATION: Dizziness. COMPARISON: 12/01/2017. TECHNIQUE: Contiguous axial images of the brain were obtained without IV contrast. DLP: 628 mGy-cm. FINDINGS: There are no pathologic extra-axial fluid collections. The lateral, third, fourth ventricles are enlarged, though stable, age-appropriate and concordant with the appearance of the sulci. There is no evidence for acute intraparenchymal hemorrhage or infarct. There is periventricular low-attenuation present indicative of small vessel disease. There is neither mass nor mass effect. There is no shift of midline structures. The paranasal sinuses and mastoid air cells are clear. There are no osseous lesions. IMPRESSION: No evidence for acute intracranial injury. Stable age-appropriate appearance of the brain.
--- NOTE | 2017-12-11 21:26 | History & Physical ---
Luke FLOREZ,[facility] 12/11/172125: General Information and [facility] MD Statement: I have seen and personally examined PILI LINDSEY and documented this H&P. The patient is a 77 year old M who presented with a patient stated chief complaint of [dizziness]. Source of Information: patient Exam Limitations: poor historian History of Present Illness: 77-year-old male with past medical history of CVA, hypertension, chronic kidney disease was brought in to the ED for evaluation of dizziness. Most of the history has been obtained from the girlfriend as the patient is a poor historian. The girlfriend states that the patient was discharged from [place] ( after being evaluated for dizziness) to [facility] so he could walk. He was prescribed Percocet and Tramadol for pain on discharge which apparently made him hallucinate. He was discharged from rehab 3 weeks later. The patient apparently was doing okay after that. He was cooking his own meals and walking around. He has visiting nurses and was noticed to have low blood pressure almost every week. He does experiences dizziness everytime he gets up from bed. No other associated symptoms of lightheadedness or chest pain. Two weeks ago, the patient had a fall in the bathroom due to dizziness. No loss of consciousness or injury to head. He was taken to [facility] where he was evaluated and was informed that his heart beats from the ventricles instead of the atria. He was started on diltiazem thereafter. He was also scheduled for a stress test for this Monday. He was seen on Monday in the [place] ER after a second fall where he tripped over a bucket and was found to have rib fractures. He was discharged on Percocet and Tylenol/Codeine, which the girlfriend reports the prescripstion was never filled. Girlfriend mentions that patient has had a colonoscopy every 3 years, however, is unable to tell the results. In the ED the patient was found to have orthostatic hypotension. His stools were guiac positive. However, he had been started on iron supplementation for his anemia and RLS. Allergies/Medications Allergies: Uncoded Allergies: "OPIATES" (Mild, HALLUCINATIONS 12/02/17) Home Med list Amlodipine Besylate 5 MG TABLET 1 TAB PO DAILY Hypertension (Reported) Atorvastatin Calcium 20 MG TABLET 1 TAB PO DAILY Heart Health (Reported) Diltiazem HCl (Diltiazem 24HR ER) 120 MG CAP.ER.24H 1 CAP PO DAILY PVC ( Reported) Ferrous Sulfate 325 MG (65 MG IRON) TABLET 1 TAB PO DAILY Restless Legs Lidocaine (Lidoderm) 5 % ADH..PATCH 1 PAT EXT DAILY BACK PAIN Metoprolol Succ XL (Toprol Xl) 50 MG TAB 50 MG PO DAILY blood pressure Midodrine HCl 5 MG TABLET 1 TAB PO BID Blood Pressure Past History Travel History Traveled to [place] past 21 day No Medical History Neurological: CVA EENT: NONE Cardiovascular: hypertension Respiratory: NONE Gastrointestinal: constipation Hepatic: CHOLY,APPY Renal: chronic kidney disease Musculoskeletal: L4 DISC Psychiatric: NONE Endocrine: NONE Blood Disorders: NONE Cancer(s): NONE 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 Denies: chills, fever. EENTM: Reports: no symptoms. Cardiovascular: Reports: palpitations. Denies: chest pain. Respiratory: Reports: short of breath. GI: Reports: constipation. Genitourinary: Reports: no symptoms. Musculoskeletal: Reports: back pain, joint pain. Skin: Reports: no symptoms. Neurological/Psychological: Reports: other (dizziness). Hematologic/Endocrine: Reports: no symptoms. Exam & Diagnostic Data Last 24 Hrs of Vital Signs/I&O Vital Signs Date Time Temp Pulse Resp B/P B/P Pulse O2 O2 Flow FiO2 Mean Ox Delivery Rate 12/11 2207 68 129/61 12/11 2034 96.7 82 20 162/70 100 Room Air 12/11 1801 98.3 63 18 154/69 100 Room Air 12/11 1706 Room Air Room Air 12/11 1607 96.6 65 20 137/68 97 Room Air Room Air Physical Exam General Appearance Alert, Oriented X3, Cooperative, No Acute Distress Skin No Rashes, No Breakdown Skin Temp/Moisture Exam: Warm/Dry Sepsis Skin Exam (color): Normal for Ethnicity HEENT Atraumatic Cardiovascular Normal S1, Normal S2, systolic murmur Lungs Clear to Auscultation, Normal Air Movement Abdomen Soft, No Tenderness Neurological Normal Speech Extremities No Edema Assessment/Plan Assessment: 77-year-old male with past medical history of CVA, hypertension, chronic kidney disease was brought in to the ED for evaluation of dizziness. Assessment: 1. Dizziness 2. Anemia 3. Guiac Positive Stools 4. Orthostatic Hypotension 5. History of CKD Plan: * Admit to telemetry. Will monitor him overnight for any arrhythmia. * Hydrate with NS @ 75ml/hr - 1 bag * Will hold his antihypertensives for now * Continue Midodrine * Cardiology consult in am * GI consult for guiac postive stools and anemia. He is on iron supplementation which can lead to false positive FOB test. * Girlfriend has strictly requested for the patient to be not on any opiod medication as he is unable to tolerate it. * Diet: Heart Healthy * DVT Prophylaxis: ALPS only * Code: Full Code As Ranked By This Provider Problem List: 1. Dizziness Core Measures/Misc (05/14) Acute Coronary Syndrome ACS Diagnosis: No Congestive Heart Failure Congestive Heart Failure Diagnosis No Cerebrovascular Accident CVA/TIA Diagnosis: No VTE (View Protocol) VTE Risk Factors Age>40 No Mechanical VTE Prophylaxis d/t N/A MechProphylax Ordered No VTE Pharm Prophylaxis d/t NA PharmProphylax ordered Sepsis (View protocol) Sepsis Present: No Moni Macario 12/12/17 0244: Resident Review Statement Resident Statement: examined this patient, discussed with product marketing intern, agreed with product marketing intern, discussed with family, reviewed EMR data (avail), discussed with nursing , discussed with case mgmt, reviewed images Other Findings: is a 77 yo man with PMhx. of HTN, CVA, CKD, S/P triple A repair, CKD, presented for dizziness. Found to have positive orthostat and Guiaic positive stool. Will admitt the patien to telemetry to r/o arrhythmia, gentle hydration, will hold BP meds, serial EKG/trops, PT eval, dvt ppx ALPS, FC Scottie FLOREZ, [facility] 12/12/17 0610: Attending Review Statement Attending Statement Attending MD Statement: examined this patient, discuss w/resident/PA/PERIOPERATIVE ASSISTANT, agreed w/resident/PA/PERIOPERATIVE ASSISTANT, reviewed images, amended to note Attending Assessment/Plan: 77 yo M with h/o chronic back pain, HTN, CVA x 3 (with resultant LE weakness, slow thought process), s/p CEA, CKD, vertigo, AAA repair with stents at the [facility] ([place], Aug 2017), then admitted to [place] (Sep 2017) for orthostatic hypotension and paroxysmal SVT, is here today for c/o dizziness. Visiting nurse noted that his BP was 103/20 and hence he was sent to the ER. Patient is not the best historian, so patient's friend Diego was contacted. Patient had a short stay at [facility] for PT after his most recent discharge from [place]. He was doing well, except for occasional dizziness worse with getting up off the bed and needs to hold on to things to get around. He has had recurrent falls recently. He was evaluated at the [facility] ([place]) and was initiated on cardizem for ?abnormal ventricular beats, he is scheduled for a stress test on December 13 at [facility] (Dr. Sepulveda). He was also seen at [place] ER on December 01 for a mechanical fall and found to have right sided rib fractures, sent home on Percocet and tylenol with codeine but patient does not take it as they make him hallucinate. Patient has chronic anemia and was initiated on iron supplements during most recent admission. He denies melena, BRBPR, hematemesis or hematuria. He was noted to have guaiac positive stools in the ER. Patient reports undergoing EGD/ colonoscopy many years ago at the [facility] normal. Vitals are stable. Exam: no evidence of nystagmus, neuro nonfocal. Patient was unable to ambulate due to dizziness. Labs: H/H 8.0/24.2, BUN 48, creat 2.7 ( baseline), trop neg. Head CT: no acute injury. EKG: sinus rhythm. Echo (2018): EF normal, moderate aortic sclerosis. Orthostats: Lying 129/61 --> Sitting 150/67 --> Standing 110/57 and HR increased to 109. Assessment and plan: 1. Dizziness, Near syncope, orthostatic hypotension 2. History of paroxysmal SVT on metoprolol and recently started on cardizem 3. Chronic normocytic anemia likely ACD on iron supplementation, now with guaiac positive stools 4. CKD stage 4 5. Recent AAA repair 6. Chronic back pain 7. Gait instability - Admit to Telemetry - Watch for arrhythmias - Gentle hydration - Hold cardizem, metoprolol and amlodipine - resume after discussion with cardiology - Continue midodrine - Recheck orthostats in AM - Serial EKG and troponin - Cardio consult - Check AM cortisol levels - Obtain records from [employer] at [facility] - Type and crossmatch - Goal Hb > 8.0 - Consult GI, may need outpatient repeat EGD/ colonoscopy - PT eval, possible STR DVT ppx Alps. Full code.
--- NOTE | 2017-12-11 22:35 | Admission Certification ---
Admission Certification Certification Statement - As attending physician, I certify that at the time of - admission, based on clinical presentation, severity of - symptoms, need for further diagnostic testing and - therapeutic interventions, and risk of adverse outcomes - without in-hospital treatment, in my clinical assessment, - this patient requires an acute hospital stay for a minimum - of two nights or longer. I have also considered psychsocial - factors such as support system, advanced age, financial - issues, cognitive issues, and failed out-patient treatments, - past re-admission history, safety of patient, and lack of - compliance as applicable. Specific rationale supporting this admission is: Dizziness, orthostatic hypotension, gait instability.
[2017-12-11 22:38] LABS: PT 12.2 SEC (9.4-12.5)
[2017-12-11] MEDS ORDERED: DILTIAZEM 24HR120 MG PO (22:47)
[2017-12-11] MEDS ORDERED: AMLODIPINE BESYL5 M1 PO (22:47)
[2017-12-11] MEDS ORDERED: MIDODRINE HCL5 M1 PO (22:48)
[2017-12-11] MEDS ORDERED: FERROUS SULFAT325 M3 PO (22:49)
[2017-12-12 05:57] LABS: ABSOLUTE BASOPHIL COUNT 0 /CUMM (0.0-0.2); ABSOLUTE EOSINOPHIL COUNT 0.3 /CUMM (0.0-0.7); ABSOLUTE GRANULOCYTE CT 5.3 /CUMM (1.4-6.5); ABSOLUTE LYMPH COUNT 1.6 /CUMM (1.2-3.4); ABSOLUTE MONOCYTE COUNT 0.6 /CUMM (0.10-0.60); BASOPHIL % 0.4 % (0.0-2.0); EOSINOPHIL % 3.8 % (0-5); GRANULOCYTE % 67.9 % (42.2-75.2); HEMATOCRIT 24.3 % (42-52); MEAN CORPUSCULAR HGB 26.1 PG (27.0-31.0); MEAN CORPUSCULAR HGB CONC 32.3 G/DL (33.0-37.0); MEAN CORPUSCULAR VOLUME 81.1 FL (80.0-94.0); MEAN PLATELET VOLUME 7.7 FL (7.4-10.4); PLATELET COUNT 263 /CUMM (130-400); RBC DISTRIBUTION WIDTH 18.1 % (11.5-14.5); WHITE BLOOD CELL COUNT 7.8 /CUMM (4.8-10.8)
--- NOTE | 2017-12-12 12:06 | PN- Housestaff ---
Arleth Landon MD 12/12/17 1206: Subjective Follow-up For: 1. Dizziness 2. Anemia 3. Guiac Positive Stools 4. Orthostatic Hypotension 5. History of CKD Complaints: no complaints Tele-Events Since Last Visit: NSR 78-90 Subjective: Patient states he is feeling "okay". He denies any current dizziness but notes that he has not walked. Review of Systems Constitutional: Reports: no symptoms. Cardiovascular: Reports: no symptoms. Respiratory: Reports: no symptoms. Gastrointestinal: Reports: no symptoms. Genitourinary: Reports: no symptoms. Skin: Reports: no symptoms. Neurological/Psychological: Reports: cognitive dysfunction. Objective Last 24 Hrs of Vital Signs/I&O Vital Signs Date Time Temp Pulse Resp B/P B/P Pulse O2 O2 Flow FiO2 Mean Ox Delivery Rate 12/12 1627 76 146/56 12/12 1456 98.4 73 20 178/64 97 Room Air 12/12 1301 98.2 89 20 141/67 98 Room Air 12/12 0851 72 175/84 12/12 0851 72 175/84 12/12 0554 97.9 70 16 164/79 96 Room Air 12/12 0320 98.9 78 18 126/59 96 Room Air 12/11 2310 68 129/61 12/11 2207 68 129/61 12/11 2034 96.7 82 20 162/70 100 Room Air 12/11 1801 98.3 63 18 154/69 100 Room Air 12/11 1706 Room Air Room Air Intake & Output 12/12 1600 12/12 0800 12/12 0000 Intake Total 500 0 Output Total 150 200 200 Balance 350 -200 -200 Intake, Oral 500 0 Output, Urine 150 200 200 Patient 0 lb Weight Weight 1<jk`dXk\\Z Measurement Method Physical Exam General Appearance: Alert, Oriented X3, Cooperative, No Acute Distress Skin: No Rashes, No Breakdown, No Significant Lesion Sepsis Skin Exam (color): Normal for Ethnicity HEENT: Atraumatic, PERRLA, EOMI, Mucous Membr. moist/pink Cardiovascular: Regular Rate, Normal S1, Normal S2 Lungs: Clear to Auscultation, Normal Air Movement Abdomen: Normal Bowel Sounds, Soft, No Tenderness Neurological: Normal Speech Current Medications: Current Medications Sig/Som Start time Last Medication Dose Route Stop Time Status Admin Acetaminophen 650 MG Q6P PRN 12/11 2145 AC PO Atorvastatin Calcium 20 MG 1700 12/12 1700 AC PO Diltiazem HCl 30 MG Q6 12/12 1800 AC PO Heparin Sodium 5,000 UNIT Q8 12/12 0600 CAN (Porcine) SC Meclizine HCl 0 .STK-MED ONE 12/11 2120 DC PO Meclizine HCl 12.5 MG ONCE ONE 12/11 2100 DC 12/11 PO 12/11 2101 2115 Melatonin 5 MG ONCE ONE 12/12 0115 DC 12/12 PO 12/12 0116 0122 Metoprolol Succinate 50 MG DAILY 12/12 1448 AC 12/12 PO 1627 Midodrine 5 MG BID 12/12 0900 AC 12/12 PO 0853 Sodium Chloride 1,000 ML ONCE ONE 12/12 0300 DC 12/12 IV 12/12 1619 0527 Sodium Chloride 1,000 ML ONCE ONE 12/11 1700 DC 12/11 IV 12/11 2339 1738 Last 24 Hrs of Lab/Tony Results Last 24 Hrs of Labs/Mics: Laboratory Tests 12/12/17 0544: Anion Gap 10, Estimated GFR 26 L, BUN/Creatinine Ratio 19.2, Cortisol AM Sample 5.6, CBC w Diff NO MAN DIFF REQ, RBC 3.00 L, MCV 81.1, MCH 26.1 L, MCHC 32.3 L, RDW 18.1 H, MPV 7.7, Gran % 67.9, Lymphocytes % 19.9 L, Monocytes % 8.0, Eosinophils % 3.8, Basophils % 0.4, Absolute Granulocytes 5.3, Absolute Lymphocytes 1.6, Absolute Monocytes 0.6, Absolute Eosinophils 0.3, Absolute Basophils 0 12/11/17 2255: Troponin I 0.01 12/11/17 1705: Anion Gap 10, Estimated GFR 23 L, BUN/Creatinine Ratio 17.8, Glucose 97, Calcium 9.0, Total Bilirubin 0.3, AST 10 L, ALT 18 L, Alkaline Phosphatase 88, Troponin I < 0.01, Total Protein 6.3, Albumin 3.2 L, Globulin 3.1, Albumin/ Globulin Ratio 1.0 L, PT 12.2, INR 1.12, CBC w Diff NO MAN DIFF REQ, RBC 2.98 L, MCV 81.4, MCH 26.8 L, MCHC 32.9 L, RDW 18.3 H, MPV 7.8, Gran % 72.1, Lymphocytes % 15.3 L, Monocytes % 8.2, Eosinophils % 3.9, Basophils % 0.5, Absolute Granulocytes 5.9, Absolute Lymphocytes 1.3, Absolute Monocytes 0.7 H, Absolute Eosinophils 0.3, Absolute Basophils 0 Assessment/Plan Assessment: 77 yo M with h/o chronic back pain, HTN, CVA, CKD, vertigo, AAA repair with stents admitted last here for orthostatic hypotension and paroxysmal SVT, is here today for dizziness. Visiting nurse noted that his BP was 103/20. Patient is not the best historian, so patient's friend Diego was contacted who gave much of the history. Patient had a short stay at [facility] for PT after his most recent discharge from [place]. He was doing well, but then began to have recurrent falls recently. He was evaluated at the [facility] and was initiated on cardizem recently. He was also seen at [place] ER on December 01 for a mechanical fall and found to have right sided rib fractures, sent home on Percocet and tylenol with codeine itch caused some degree of hallucinations. Patient has chronic anemia and was initiated on iron supplements during most recent admission. He was noted to have guaiac positive stools in the ER. Vitals are stable, no evidence of nystagmus, neuro nonfocal. Patient was unable to ambulate due to dizziness. Hemoglobin 8, troponin negative. Head CT: no acute injury. EKG: sinus rhythm. Echo (2018): EF normal, moderate aortic sclerosis. Patient had positive orthostatics Plan 1. Dizziness with near syncope: Patient was previously admitted with same reason and has a history of paroxysmal SVT on metoprolol recently started on Cardizem. Patient does have history of CVA, imaging does not support CVA currently. -Continue to monitor patient in telemetry -Troponins and EKGs negative for ACS -We have consulted with cardiology. -Patient blood pressure today is 175/84 and we can start his Cardizem 30 mg every 6. We will also start his metoprolol 50 mg. If patient continues to be hypertensive we can add 5 milligrams amlodipine. Continue midodrine 5 mg twice a day. -Patient does have positive orthostatics but a.m. cortisol sample normal -Meclizine if needed -PT evaluation 2. Chronic normocytic anemia likely ACD on iron supplementation, now with guaiac positive stools -We spoke with GI who would like patient to follow-up outpatient. -Most recent hemoglobin 7.8. -Continue iron supplementation. -Type and crossmatch and monitor hemoglobin for drop, any further drops and instability, dose 1 unit. We will do CBC tonight for 6 PM to direct us. 3. CKD stage 4 -Avoid nephrotoxic medications. -Most recent creatinine is 2.4. 4. Chronic back pain -Avoid NSAIDs and opiates as girlfriend has strictly requested the patient to not be on any opiate medications as he is not able to tolerate it. 5. Hyperlipidemia -Continue statin therapy H was 1020 mg DVT ppx Alps. Full code. Problem List: 1. GI bleed 2. Anemia 3. 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 Patient denies any new complaints. His BP elevated. SVT on metoprolol and recently started on cardizem. Monitor telemetry. Cardiology consult. Resume diltiazem and metoprolol as bp allows. Anemia multifactorial on iron supplementation, now with guaiac positive stools. h/h stable, consider outpatient GI eval. CKD stage 4 Cr baseline. Recent AAA repair Chronic back pain. Controlled. Avoid NSAIDS.
--- NOTE | 2017-12-12 13:34 | Cons- Cardiology ---
General Information and HPI Consulting Request Date of Consult: 12/12/17 Reason for Consult: presyncope History of Present Illness: 2 weeks of lightheadedness and presyncope when standing. Yesterday, felt particularly dizzy when preparing his breakfast in the kitchen and his spouse called 911. No loss of consciousness to date, no palpitations, no chest pain, no fall. No change in medication recently according to patient. Was scheduled for an outpatient stress test 12/13, not for chest pains according to patient... Here BP drop > 30mmHg systolic when standing with compensatory tachycardia (80 to 110 bpm), and accompanying dizziness... Hb 78 on first CBC, patient was unaware of anemia... denies any bleeding, melena etc... Allergies/Medications Allergies: Uncoded Allergies: "OPIATES" (Mild, HALLUCINATIONS 12/02/17) Home Med List: Amlodipine Besylate 5 MG TABLET 1 TAB PO DAILY Hypertension (Reported) Atorvastatin Calcium 20 MG TABLET 1 TAB PO DAILY Heart Health (Reported) Diltiazem HCl (Diltiazem 24HR ER) 120 MG CAP.ER.24H 1 CAP PO DAILY PVC ( Reported) Ferrous Sulfate 325 MG (65 MG IRON) TABLET 1 TAB PO DAILY RLS (Reported) Lidocaine (Lidoderm) 5 % ADH..PATCH 1 PAT EXT DAILY BACK PAIN Metoprolol Succ XL (Toprol Xl) 50 MG TAB 50 MG PO DAILY blood pressure Midodrine HCl 5 MG TABLET 1 TAB PO TID ORTHOSTASIS (Reported) Omeprazole 40 MG CAPSULE.DR 1 CAP PO DAILY gastro protection . Past History Travel History Traveled to [place] past 21 day No Medical History Neurological: CVA EENT: NONE Cardiovascular: hypertension Respiratory: NONE Gastrointestinal: constipation Hepatic: CHOLY,APPY Renal: chronic kidney disease Musculoskeletal: L4 DISC Psychiatric: NONE Endocrine: NONE Blood Disorders: NONE Cancer(s): NONE AIRLINE DISPATCHER/Reproductive: NONE Surgical History Surgical History: aaa REPAIR RIGHT ENDARTERECTOMY Psychosocial History Services at Home: Nursing Smoking Status: Current Everyday Smoker ETOH Use: denies use Illicit Drug Use: denies illicit drug use Assessment/Plan Consult Acknowledgment - Thank you for your consult request.
[2017-12-12 14:56] VITALS: BP 178/64
[2017-12-12 18:45] LABS: ABSOLUTE BASOPHIL COUNT 0 /CUMM (0.0-0.2); ABSOLUTE EOSINOPHIL COUNT 0.4 /CUMM (0.0-0.7); ABSOLUTE GRANULOCYTE CT 7.3 /CUMM (1.4-6.5); ABSOLUTE LYMPH COUNT 1.2 /CUMM (1.2-3.4); ABSOLUTE MONOCYTE COUNT 0.6 /CUMM (0.10-0.60); BASOPHIL % 0.5 % (0.0-2.0); EOSINOPHIL % 3.8 % (0-5); GRANULOCYTE % 76.7 % (42.2-75.2); HEMATOCRIT 25.6 % (42-52); MEAN CORPUSCULAR HGB 26.7 PG (27.0-31.0); MEAN CORPUSCULAR HGB CONC 32.6 G/DL (33.0-37.0); MEAN PLATELET VOLUME 8.1 FL (7.4-10.4); PLATELET COUNT 283 /CUMM (130-400); RBC DISTRIBUTION WIDTH 18.8 % (11.5-14.5); RED BLOOD CELL CT 3.12 /CUMM (4.70-6.10); WHITE BLOOD CELL COUNT 9.5 /CUMM (4.8-10.8)
[2017-12-12 21:37] VITALS: BP 150/64
[2017-12-13 06:40] VITALS: BP 140/60
--- NOTE | 2017-12-13 07:54 | PN- Housestaff ---
Barbi FLOREZ,Arleth 12/13/17 0753: Subjective Follow-up For: 1. Dizziness 2. Anemia 3. Guiac Positive Stools 4. Orthostatic Hypotension 5. History of CKD Complaints: no complaints Tele-Events Since Last Visit: Sinus rhythm at 74-89 Subjective: Patient has no complaints, dizziness is less. Continues to have orthostatic hypotension. Review of Systems Constitutional: Reports: no symptoms. Objective Last 24 Hrs of Vital Signs/I&O Vital Signs Date Time Temp Pulse Resp B/P B/P Pulse O2 O2 Flow FiO2 Mean Ox Delivery Rate 12/13 1506 98.7 58 20 140/56 99 Room Air 12/13 1130 62 150/50 12/13 0919 70 140/60 12/13 0640 99.0 70 20 140/60 97 Room Air 12/13 0632 67 140/60 12/13 0112 62 140/44 12/12 2137 98.9 67 20 150/64 97 12/12 1726 70 160/78 12/12 1627 76 146/56 Intake & Output 12/13 1600 12/13 0800 12/13 0000 Intake Total 200 320 Output Total 200 175 Balance 0 145 Intake, Oral 200 320 Output, Urine 200 175 Physical Exam General Appearance: Alert, Oriented X3, Cooperative, No Acute Distress Skin: No Rashes, No Breakdown, No Significant Lesion Skin Temp/Moisture Exam: Warm/Dry Sepsis Skin Exam (color): Normal for Ethnicity HEENT: Atraumatic, EOMI, Mucous Membr. moist/pink Cardiovascular: Regular Rate, Normal S1, Normal S2, No Murmurs Lungs: Clear to Auscultation, Normal Air Movement Abdomen: Normal Bowel Sounds, Soft, No Tenderness, No Hepatospenomegaly, No Masses Neurological: Normal Speech Extremities: No Clubbing, No Cyanosis, No Edema, Normal Pulses Vascular: Normal Pulses, Pulses Symmetrical Current Medications: Current Medications Sig/Som Start time Last Medication Dose Route Stop Time Status Admin Acetaminophen 650 MG Q6P PRN 12/11 2145 AC PO Atorvastatin Calcium 20 MG 1700 12/12 1700 AC 12/12 PO 1748 Diltiazem HCl 30 MG Q6 12/12 1800 AC 12/13 PO 1130 Ferrous Sulfate 325 MG DAILY 12/13 0900 AC 12/13 PO 1130 Melatonin 3 MG AT BEDTIME 12/12 2100 AC 12/12 PO 2142 Metoprolol Succinate 50 MG DAILY 12/12 1448 AC 12/13 PO 0919 Midodrine 5 MG BID 12/12 0900 AC 12/13 PO 0918 Pantoprazole Sodium 40 MG DAILY 12/13 0900 AC 12/13 IV 1129 Senna 187 MG AT BEDTIME 12/13 2100 DC 12/13 PO 09 Senna/Docusate Sodium 2 TAB AT BEDTIME 12/13 2100 AC PO Sodium Chloride 1,000 ML ONCE ONE 12/12 0300 DC 12/12 IV 12/12 1619 0562 Last 24 Hrs of Lab/Tony Results Last 24 Hrs of Labs/Mics: Laboratory Tests 12/13/17 1549: CBC w Diff Pending, WBC Pending, RBC Pending, Hgb Pending, Hct Pending, MCV Pending, MCH Pending, MCHC Pending, RDW Pending, Plt Count Pending, MPV Pending 12/13/17 0700: Anion Gap 11, Estimated GFR 29 L, BUN/Creatinine Ratio 19.1, CBC w Diff NO MAN DIFF REQ, RBC 2.53 L, MCV 81.1, MCH 26.7 L, MCHC 33.0, RDW 18.3 H, MPV 8.1, Gran % 70.2, Lymphocytes % 17.3 L, Monocytes % 8.6, Eosinophils % 3.6, Basophils % 0.3, Absolute Granulocytes 5.4, Absolute Lymphocytes 1.3, Absolute Monocytes 0.7 H, Absolute Eosinophils 0.3, Absolute Basophils 0 12/12/17 1758: CBC w Diff NO MAN DIFF REQ, RBC 3.12 L, MCV 82.0, MCH 26.7 L, MCHC 32.6 L, RDW 18.8 H, MPV 8.1, Gran % 76.7 H, Lymphocytes % 12.6 L, Monocytes % 6.4, Eosinophils % 3.8, Basophils % 0.5, Absolute Granulocytes 7.3 H, Absolute Lymphocytes 1.2, Absolute Monocytes 0.6, Absolute Eosinophils 0.4, Absolute Basophils 0 Assessment/Plan Assessment: 77 yo M with h/o chronic back pain, HTN, CVA, CKD, vertigo, AAA repair with stents admitted last here for orthostatic hypotension and paroxysmal SVT, is here today for dizziness. Visiting nurse noted that his BP was 103/20. Patient is not the best historian, so patient's friend Diego was contacted who gave much of the history. Patient had a short stay at [facility] rehab for PT after his most recent discharge from [place]. He was doing well, but then began to have recurrent falls recently. He was evaluated at the [facility] and was initiated on cardizem recently. He was also seen at [place] ER on December 01 for a mechanical fall and found to have right sided rib fractures, sent home on Percocet and tylenol with codeine itch caused some degree of hallucinations. Patient has chronic anemia and was initiated on iron supplements during most recent admission. He was noted to have guaiac positive stools in the ER. Vitals are stable, no evidence of nystagmus, neuro nonfocal. Patient was unable to ambulate due to dizziness. Hemoglobin 8, troponin negative. Head CT: no acute injury. EKG: sinus rhythm. Echo (2018): EF normal, moderate aortic sclerosis. Patient had positive orthostatics Plan 1. Dizziness with near syncope: Patient was previously admitted with same reason and has a history of paroxysmal SVT on metoprolol recently started on Cardizem. Patient does have history of CVA, imaging does not support CVA currently. -Continue to monitor patient in telemetry -Troponins and EKGs negative for ACS -We have consulted with cardiology. -Patient blood pressure today is 175/84 and we can start his Cardizem 30 mg every 6. We will also start his metoprolol 50 mg. patient's blood pressure today is 130/48 laying down, 120/40 sitting, 110/44 standing. If patient is hypertensive we can add 5 milligrams amlodipine. Continue midodrine 5 mg twice a day. -Patient does have positive orthostatics but a.m. cortisol sample normal -Meclizine if needed -PT evaluation 2. Chronic normocytic anemia likely ACD on iron supplementation, now with guaiac positive stools -We spoke with GI who would like patient to follow-up outpatient. -Most recent hemoglobin 6.8 this morning so we will transfuse 1 unit of blood with a CBC check at 2 PM, IV Protonix. -Continue iron supplementation. -GI said that they would evaluate the patient outpatient 3. CKD stage 4 -Avoid nephrotoxic medications. -Most recent creatinine is 2.4. 4. Chronic back pain -Avoid NSAIDs and opiates as girlfriend has strictly requested the patient to not be on any opiate medications as he is not able to tolerate it. 5. Hyperlipidemia -Continue statin therapy DVT ppx Alps. Full code. Problem List: 1. GI bleed 2. Anemia 3. Dizziness Pain Ratin Pain Location: na Pain Goal: Remain pain free Pain Plan: na Tomorrow's Labs & Rationales: cbc bep Cynthia Gomez 12/13/17 1120: Attending MD Review Statement Attending Statement Attending MD Statement: examined this patient, discuss w/resident/PA/TESTING DIRECTOR, agreed w/resident/PA/TESTING DIRECTOR, discussed with family, reviewed EMR data (avail), discussed with nursing, discussed with case mgmt, reviewed images, amended to note Attending Assessment/Plan: Patient denies any new complaints. Labs and imaging noted. H/h trending down. Hemodynamics stable. Dizziness possible anemia r/o cardiac causes. SVT on metoprolol and cardizem. Continue telemetry. Cardiology f/u. Anemia multifactorial likely CKD rule out blood loss anemia on iron supplementation, guaiac positive stools, Spoke to GI and recommend o/p GI follow up outpatient. Transfuse 1 unit of PRBC, PPI and serial cbc monitoring. CKD stage 4 Cr baseline. Recent AAA repair Chronic back pain. Controlled. Avoid NSAIDS.
[2017-12-13 08:21] LABS: ABSOLUTE BASOPHIL COUNT 0 /CUMM (0.0-0.2); ABSOLUTE EOSINOPHIL COUNT 0.3 /CUMM (0.0-0.7); ABSOLUTE GRANULOCYTE CT 5.4 /CUMM (1.4-6.5); ABSOLUTE LYMPH COUNT 1.3 /CUMM (1.2-3.4)
[2017-12-13 08:32] LABS: ABSOLUTE MONOCYTE COUNT 0.7 /CUMM (0.10-0.60); BASOPHIL % 0.3 % (0.0-2.0); EOSINOPHIL % 3.6 % (0-5); GRANULOCYTE % 70.2 % (42.2-75.2); MEAN CORPUSCULAR HGB 26.7 PG (27.0-31.0); MEAN CORPUSCULAR VOLUME 81.1 FL (80.0-94.0); MEAN PLATELET VOLUME 8.1 FL (7.4-10.4); PLATELET COUNT 253 /CUMM (130-400); RBC DISTRIBUTION WIDTH 18.3 % (11.5-14.5); RED BLOOD CELL CT 2.53 /CUMM (4.70-6.10); WHITE BLOOD CELL COUNT 7.7 /CUMM (4.8-10.8)
[2017-12-13 08:42] LABS: HEMATOCRIT 20.5 % (42-52)
[2017-12-13 15:06] VITALS: BP 140/56
[2017-12-13 16:31] LABS: ABSOLUTE BASOPHIL COUNT 0 /CUMM (0.0-0.2); ABSOLUTE EOSINOPHIL COUNT 0.3 /CUMM (0.0-0.7); ABSOLUTE GRANULOCYTE CT 5.8 /CUMM (1.4-6.5); ABSOLUTE LYMPH COUNT 1.1 /CUMM (1.2-3.4); ABSOLUTE MONOCYTE COUNT 0.8 /CUMM (0.10-0.60); BASOPHIL % 0.2 % (0.0-2.0); HEMATOCRIT 25.1 % (42-52); MEAN CORPUSCULAR HGB 25.9 PG (27.0-31.0); MEAN CORPUSCULAR VOLUME 80.9 FL (80.0-94.0); MEAN PLATELET VOLUME 7.9 FL (7.4-10.4); PLATELET COUNT 245 /CUMM (130-400); RBC DISTRIBUTION WIDTH 18.6 % (11.5-14.5); WHITE BLOOD CELL COUNT 7.9 /CUMM (4.8-10.8)
[2017-12-13 22:00] VITALS: BP 138/62
--- NOTE | 2017-12-14 00:39 | PN- Cardiology ---
Subjective Subjective: Hb drop below 7. Dizziness with standing persists. No evidence of acute coronary event or heart failure explaining symptoms. Midodrine does not appear to help patient's symptoms. Objective Vital Signs and I&Os Vital Signs Date Time Temp Pulse Resp B/P B/P Pulse O2 O2 Flow FiO2 Mean Ox Delivery Rate 12/13 2200 61 138/62 12/13 1506 98.7 58 20 140/56 99 Room Air 12/13 1130 62 150/50 12/13 0919 70 140/60 12/13 0640 99.0 70 20 140/60 97 Room Air 12/13 0632 67 140/60 12/13 0112 62 140/44 Intake & Output 12/13 1600 12/13 0800 12/13 0000 12/12 1600 12/12 0800 12/12 0000 Intake Total 690 200 320 500 0 Output Total 500 200 325 200 200 Balance 190 0 320 175 -200 -200 Intake, Oral 690 200 320 500 0 Number 0 Bowel Movements Output, Urine 500 200 325 200 200 Patient 0 lb Weight Weight 1<jk`dXk\[id number] Measurement Method Physical Exam: General Appearance: Alert, Oriented X3, Cooperative, No Acute Distress Skin Temp/Moisture Exam: Warm/Dry HEENT: EOMI, Mucous Membr. moist/pink Cardiovascular: Regular Rate, Normal S1, Normal S2, No Murmurs Lungs: Clear to Auscultation, Normal Air Movement Abdomen: Normal Bowel Sounds, Soft, No Tenderness, No Hepatospenomegaly, No Masses Neurological: Normal Speech Extremities: No Clubbing, No Cyanosis, No Edema, Normal Pulses Vascular: Normal Pulses, Pulses Symmetrical Current Medications: Current Medications Sig/Som Start time Last Medication Dose Route Stop Time Status Admin Acetaminophen 650 MG Q6P PRN 12/11 2145 AC PO Atorvastatin Calcium 20 MG 1700 12/12 1700 AC 12/13 PO 1906 Diltiazem HCl 30 MG Q6 12/12 1800 AC 12/13 PO 1906 Ferrous Sulfate 325 MG DAILY 12/13 09 AC 12/13 PO 1130 Melatonin 3 MG AT BEDTIME 12/12 2100 AC 12/13 PO 2227 Metoprolol Succinate 50 MG DAILY 12/12 1448 AC 12/13 PO 0919 Midodrine 5 MG BID 12/12 09 AC 12/13 PO 0918 Pantoprazole Sodium 40 MG DAILY 12/13 09 AC 12/13 IV 1129 Senna 187 MG AT BEDTIME 12/13 2099 DC 12/13 PO 09 Senna/Docusate Sodium 2 TAB AT BEDTIME 12/13 2099 AC 12/13 PO 2031 Results Last 48 Hrs of Labs/Mics: Laboratory Tests 12/13/17 1530: CBC w Diff NO MAN DIFF REQ, RBC 3.10 L, MCV 80.9, MCH 25.9 L, MCHC 32.0 L, RDW 18.6 H, MPV 7.9, Gran % 73.0, Lymphocytes % 13.3 L, Monocytes % 9.5 H, Eosinophils % 4.0, Basophils % 0.2, Absolute Granulocytes 5.8, Absolute Lymphocytes 1.1 L, Absolute Monocytes 0.8 H, Absolute Eosinophils 0.3, Absolute Basophils 0 12/13/17 0700: Anion Gap 11, Estimated GFR 29 L, BUN/Creatinine Ratio 19.1, CBC w Diff NO MAN DIFF REQ, RBC 2.53 L, MCV 81.1, MCH 26.7 L, MCHC 33.0, RDW 18.3 H, MPV 8.1, Gran % 70.2, Lymphocytes % 17.3 L, Monocytes % 8.6, Eosinophils % 3.6, Basophils % 0.3, Absolute Granulocytes 5.4, Absolute Lymphocytes 1.3, Absolute Monocytes 0.7 H, Absolute Eosinophils 0.3, Absolute Basophils 0 12/12/17 1758: CBC w Diff NO MAN DIFF REQ, RBC 3.12 L, MCV 82.0, MCH 26.7 L, MCHC 32.6 L, RDW 18.8 H, MPV 8.1, Gran % 76.7 H, Lymphocytes % 12.6 L, Monocytes % 6.4, Eosinophils % 3.8, Basophils % 0.5, Absolute Granulocytes 7.3 H, Absolute Lymphocytes 1.2, Absolute Monocytes 0.6, Absolute Eosinophils 0.4, Absolute Basophils 0 12/12/17 0544: Anion Gap 10, Estimated GFR 26 L, BUN/Creatinine Ratio 19.2, Cortisol AM Sample 5.6, CBC w Diff NO MAN DIFF REQ, RBC 3.00 L, MCV 81.1, MCH 26.1 L, MCHC 32.3 L, RDW 18.1 H, MPV 7.7, Gran % 67.9, Lymphocytes % 19.9 L, Monocytes % 8.0, Eosinophils % 3.8, Basophils % 0.4, Absolute Granulocytes 5.3, Absolute Lymphocytes 1.6, Absolute Monocytes 0.6, Absolute Eosinophils 0.3, Absolute Basophils 0 Assessment/Plan Assessment/Plan Orthostatic hypotension in setting of chronic(?) anemia, CKD. multiple falls in the recent months. no evidence of acute coronary event, heart failure or valvulopathy. R/O multiple myeloma with peripheral neuropathy, autonomic dysfunction. R/O terrell's disease. i would agree with continuing metoprolol and cardizem. Continue telemetry? Yes
[2017-12-14 07:22] VITALS: BP 170/90
--- NOTE | 2017-12-14 08:09 | PN- Housestaff ---
Barbi FLOREZ,[place] 12/14/17 0809: Subjective Follow-up For: 1. Dizziness 2. Anemia 3. Guiac Positive Stools 4. Orthostatic Hypotension 5. History of CKD Complaints: no complaints Tele-Events Since Last Visit: Sinus rhythm 56-65 Subjective: Patient is sitting in bed comfortably. He has no complaints. Patient states that he does not know if he feels dizzy as he has not gotten out of bed yet, denies dizziness later. Review of Systems Constitutional: Reports: no symptoms. Cardiovascular: Reports: no symptoms. Respiratory: Reports: no symptoms. Gastrointestinal: Reports: no symptoms. Denies: bloody stool, changes in stool. Genitourinary: Reports: no symptoms. Musculoskeletal: Reports: no symptoms. Objective Last 24 Hrs of Vital Signs/I&O Vital Signs Date Time Temp Pulse Resp B/P B/P Pulse O2 O2 Flow FiO2 Mean Ox Delivery Rate 12/14 1122 100.0 73 20 132/56 12/14 1122 73 132/56 12/14 0837 73 140/60 12/14 0722 100.0 68 20 170/90 97 Room Air 12/14 0609 56 136/80 12/13 2200 61 138/62 12/13 1506 98.7 58 20 140/56 99 Room Air 12/13 1130 62 150/50 Intake & Output 12/14 1600 12/14 0800 12/14 0000 Intake Total 200 120 Output Total 400 400 Balance -200 -280 Intake, Oral 200 120 Output, Urine 400 400 Patient 151 lb Weight Weight Bed scale Measurement Method Physical Exam General Appearance: Alert, Oriented X3, Cooperative, No Acute Distress Skin: No Rashes, No Breakdown, No Significant Lesion Skin Temp/Moisture Exam: Warm/Dry HEENT: Atraumatic, EOMI, Mucous Membr. moist/pink Cardiovascular: Regular Rate, Normal S1, Normal S2 Lungs: Clear to Auscultation, Normal Air Movement Abdomen: Normal Bowel Sounds, Soft, No Tenderness Neurological: Normal Speech Extremities: No Clubbing, No Cyanosis, No Edema, Normal Pulses Current Medications: Current Medications Sig/Som Start time Last Medication Dose Route Stop Time Status Admin Acetaminophen 650 MG Q6P PRN 12/11 2145 AC PO Amlodipine Besylate 5 MG DAILY 12/14 0956 AC 12/14 PO 1122 Atorvastatin Calcium 20 MG 1700 12/12 1700 AC 12/13 PO 1906 Diltiazem HCl 30 MG Q6 12/12 1800 AC 12/14 PO 1122 Ferrous Sulfate 325 MG DAILY 12/13 0900 AC 12/14 PO 0837 Melatonin 3 MG AT BEDTIME 12/12 2100 AC 12/13 PO 2227 Metoprolol Succinate 50 MG DAILY 12/12 1448 AC 12/14 PO 0837 Midodrine 5 MG BID 12/12 0900 AC 12/14 PO 0837 Pantoprazole Sodium 40 MG DAILY 12/13 0900 AC 12/14 IV 0837 Senna 187 MG AT BEDTIME 12/13 2100 DC 12/13 PO 0917 Senna/Docusate Sodium 2 TAB AT BEDTIME 12/13 2100 AC 12/13 PO 2031 Last 24 Hrs of Lab/Tony Results Last 24 Hrs of Labs/Mics: Laboratory Tests 12/14/17 0650: Anion Gap 11, Estimated GFR 29 L, BUN/Creatinine Ratio 20.0, CBC w Diff NO MAN DIFF REQ, RBC 3.10 L, MCV 81.2, MCH 27.6, MCHC 34.0, RDW 18.2 H, MPV 8.1, Gran % 70.9, Lymphocytes % 16.8 L, Monocytes % 8.4, Eosinophils % 3.5, Basophils % 0.4, Absolute Granulocytes 5.4, Absolute Lymphocytes 1.3, Absolute Monocytes 0.6 , Absolute Eosinophils 0.3, Absolute Basophils 0 12/13/17 1530: CBC w Diff NO MAN DIFF REQ, RBC 3.10 L, MCV 80.9, MCH 25.9 L, MCHC 32.0 L, RDW 18.6 H, MPV 7.9, Gran % 73.0, Lymphocytes % 13.3 L, Monocytes % 9.5 H, Eosinophils % 4.0, Basophils % 0.2, Absolute Granulocytes 5.8, Absolute Lymphocytes 1.1 L, Absolute Monocytes 0.8 H, Absolute Eosinophils 0.3, Absolute Basophils 0 Orders Stool Guaiac Testing: Negative today Assessment/Plan Assessment: 77 yo M with h/o chronic back pain, HTN, CVA, CKD, vertigo, AAA repair with stents admitted last here for orthostatic hypotension and paroxysmal SVT, is here today for dizziness. Visiting nurse noted that his BP was 103/20. Patient is not the best historian, so patient's friend Diego was contacted who gave much of the history. Patient had a short stay at [facility] rehab for PT after his most recent discharge from [facility]. He was doing well, but then began to have recurrent falls recently. He was evaluated at the [facility] and was initiated on cardizem recently. He was also seen at [facility] on December 01 for a mechanical fall and found to have right sided rib fractures, sent home on Percocet and tylenol with codeine itch caused some degree of hallucinations. Patient has chronic anemia and was initiated on iron supplements during most recent admission. He was noted to have guaiac positive stools in the ER. Vitals are stable, no evidence of nystagmus, neuro nonfocal. Patient was unable to ambulate due to dizziness. Hemoglobin 8, troponin negative. Head CT: no acute injury. EKG: sinus rhythm. Echo (2018): EF normal, moderate aortic sclerosis. Patient had positive orthostatics Plan 1. Dizziness with near syncope: Patient was previously admitted with same reason and has a history of paroxysmal SVT on metoprolol recently started on Cardizem. Patient does have history of CVA, imaging does not support CVA currently. -Troponins and EKGs negative for ACS -We have consulted with cardiology. -Patient blood pressure yesterday was 175/84 and we can start his Cardizem 30 mg every 6. We did also start his metoprolol 50 mg. Patient's blood pressure is 130/48 laying down, 120/40 sitting, 110/44 standing on last orthostatics. Continue midodrine 5 mg twice a day. Cardiology suggested autonomic dysfunction workup outpatient. Overnight blood pressure was 170/90. Patient will be discharged today on his antihypertensive medications including amlodipine 5 mg. -A.m. cortisol sample normal -We are unsure if patient's dizziness is caused by his anemia or a genuine inner ear problem/central vertigo at this point. She will be referred to GI for anemia workup and his PCP for next steps in evaluation of his chronic dizziness. -Patient states that he has help at home and PT is suggesting home self care 2. Chronic normocytic anemia likely ACD on iron supplementation, now with guaiac positive stools -We spoke with GI who would like patient to follow-up outpatient. -Hemoglobin was 6.8 yesterday so we transfused 1 unit of blood with a CBC check at 2 PM, found hemoglobin 8.0, IV Protonix to be converted to by mouth PPI. This morning hemoglobin is 8.6. -Continue iron supplementation. 3. CKD stage 4 -Avoid nephrotoxic medications. -Most recent creatinine is 2.2. -May be contributing to his anemia. GI will work the patient up for anemia and if needed next step would be to potentially add epogen to his regimen. 4. Chronic back pain -Avoid NSAIDs and opiates as girlfriend has strictly requested the patient to not be on any opiate medications as he is not able to tolerate it. 5. Hyperlipidemia -Continue statin therapy DVT ppx Alps. Full code. Problem List: 1. GI bleed 2. Dizziness 3. Altered mental status Pain Ratin Pain Location: na Pain Goal: Remain pain free Pain Plan: na Tomorrow's Labs & Rationales: none Cynthia Gomez 12/14/17 1153: Attending MD Review Statement Attending Statement Attending MD Statement: examined this patient, discuss w/resident/PA/CMM TECHNICIAN, agreed w/resident/PA/CMM TECHNICIAN, discussed with family, reviewed EMR data (avail), discussed with nursing, discussed with case mgmt, reviewed images, amended to note Attending Assessment/Plan: Patient with improvement in anemia after transfusion of prbc. Patient can follow up outpatient with GI and resume his PCP care at [facility]. He is willing to transfer his care from [facility] to [place]. Leon might benefit from nephrology referral at [facility] care. Patient vitals stable and clinical improvement with stable to discharge. Resume home meds at discharge and add iron pills.
[2017-12-14 08:18] LABS: ABSOLUTE BASOPHIL COUNT 0 /CUMM (0.0-0.2); ABSOLUTE EOSINOPHIL COUNT 0.3 /CUMM (0.0-0.7); ABSOLUTE GRANULOCYTE CT 5.4 /CUMM (1.4-6.5); ABSOLUTE LYMPH COUNT 1.3 /CUMM (1.2-3.4); ABSOLUTE MONOCYTE COUNT 0.6 /CUMM (0.10-0.60); BASOPHIL % 0.4 % (0.0-2.0); EOSINOPHIL % 3.5 % (0-5); GRANULOCYTE % 70.9 % (42.2-75.2); HEMATOCRIT 25.2 % (42-52); MEAN CORPUSCULAR HGB 27.6 PG (27.0-31.0); MEAN CORPUSCULAR VOLUME 81.2 FL (80.0-94.0); MEAN PLATELET VOLUME 8.1 FL (7.4-10.4); PLATELET COUNT 237 /CUMM (130-400); RBC DISTRIBUTION WIDTH 18.2 % (11.5-14.5); WHITE BLOOD CELL COUNT 7.7 /CUMM (4.8-10.8)
[2017-12-14] MEDS ORDERED: OMEPRAZOLE40 M1 PO ×2 (08:40→14:31)
--- NOTE | 2017-12-14 08:43 | Patient Discharge Instructions ---
Discharge Instructions General Discharge Information You were seen/treated for: dizziness gastrointestinal bleed hypotension kidney injury You had these procedures: blood transfusion CT head Special Instructions: 1. please follow up with your primary care physician at the [facility] Dr. Park in one week for further evaluation of your chronic dizziness and orthostatic hypotension. 2. please follow up with your food service aide at the [facility] for evaluation and treatment of gastrointestinal (gut) bleed. We have provided you a referral to our food service aide if do not have one at the [facility]. 3. Please return if dizziness worsens or in any case of loss of consciousness. Please return if profuse GI bleed. 4. Please have your blood drawn in one week at the [facility] (use laboratory requisition given to you) for blood chemistry measurement. Diet Continue normal diet: Yes Recommended Diet: Heart Healthy Activity Full Activity/No Limits: Yes (as tolerated) Acute Coronary Syndrome Inclusion Criteria At DC or during hospital stay patient has or had the following: ACS DIAGNOSIS No Discharge Core Measures Meds if any: Prescribed or Continued at Discharge Meds if any: NOT Prescribed or Continued at Discharge Congestive Heart Failure Inclusion Criteria At DC or during hospital stay patient has or had the following: CHF DIAGNOSIS No Discharge Core Measures Meds if any: Prescribed or Continued at Discharge Meds if any: NOT Prescribed or Continued at Discharge Cerebrovascular accident Inclusion Criteria At DC or during hospital stay patient has or had the following: CVA/TIA Diagnosis No Discharge Core Measures Meds if any: Prescribed or Continued at Discharge Meds if any: NOT Prescribed or Continued at Discharge Venous thromboembolism Inclusion Criteria VTE Diagnosis No VTE Type NONE VTE Confirmed by (Test) NONE Discharge Core Measures - Per Current guidelines, there needs to be overlap - treatment for the first 5 days of Warfarin therapy. - If discharged on Warfarin prior to 5 days of - overlap therapy, the patient will need to be - assessed for post discharge needs including - *Post discharge parental anticoagulation - *Warfarin and/or parental anticoagulation education - *Follow up date to check INR post discharge At least 5 days overlap therapy as Inpatient No Meds if any: Prescribed or Continued at Discharge Note: Overlap Therapy is Warfarin and Anticoagulant Meds if any: NOT Prescribed or Continued at Discharge
[2017-12-14] MEDS ORDERED: MIDODRINE HCL5 M1 PO (10:01)
[2017-12-14] MEDS ORDERED: FERROUS SULFAT325 M3 PO (10:01)
[2017-12-14 11:22] VITALS: BP 132/56
== END 2017-12-14 15:30 | disposition home health service (06) | DRG 312 ==
LOC: ERH 15:58 → ERHI 20:55 → 1NO 20:55 → ENRESERV 12-12 12:13 → ENTRNSPT 12-12 14:01 → EDTRNSPTSTS 12-12 14:18 → EDTRNSPT 12-12 14:18 → 1NO 12-12 14:39 → CMPTRNSPT 12-12 15:02 → 1NO 12-13 07:46 → ENPENDDIS 12-14 14:46 → ENTRNSPT 12-14 14:55 → EDTRNSPT 12-14 15:15 → EDTRNSPTSTS 12-14 15:15 → CMPTRNSPT 12-14 15:30 → 1NO 12-14 15:30
PROVIDERS: Emergency Medicine; Internal Medicine; Student in an Organized Health Care Education/Training Program
PROC: 30233N1 Transfusion of Nonautologous Red Blood Cells into Peripheral Vein, Percutaneous Approach (ICD-10-PCS; principal; 2017-12-13)
DX: I95.1 Orthostatic hypotension (principal); N18.4 Chronic kidney disease, stage 4 (severe); D64.9 Anemia, unspecified; K92.1 Melena; I47.1 Supraventricular tachycardia; G89.29 Other chronic pain; I12.9 Hypertensive chronic kidney disease with stage 1 through stage 4 chronic kidney disease, or unspecified chronic kidney disease; Z98.890 Other specified postprocedural states; M54.9 Dorsalgia, unspecified; R26.89 Other abnormalities of gait and mobility; S22.49XD Multiple fractures of ribs, unspecified side, subsequent encounter for fracture with routine healing; W01.0XXD Fall on same level from slipping, tripping and stumbling without subsequent striking against object, subsequent encounter; Z91.81 History of falling; E78.5 Hyperlipidemia, unspecified; F17.200 Nicotine dependence, unspecified, uncomplicated; Z86.73 Personal history of transient ischemic attack (TIA), and cerebral infarction without residual deficits; Z88.5 Allergy status to narcotic agent
CPT/HCPCS: 1NSP; ERO; 36415; 36592; 82436; 86920; 93005; 93010; 97116-GO; 97161-GP; 97530-GO; J1644; P9016

== ENCOUNTER 2017-12-27 21:13 | Emergency (ER) | payer OTHER ==
[~2017-12-27] VITALS: Ht 180.3 cm; Wt 70.3 kg
[~2017-12-27 21:13] MED LIST changes: +AMLODIPINE BESYL5 M1 PO; +DILTIAZEM 24HR120 MG PO; +OMEPRAZOLE40 M1 PO
[2017-12-27 22:35] LABS: ABSOLUTE BASOPHIL COUNT 0 /CUMM (0.0-0.2); ABSOLUTE EOSINOPHIL COUNT 0.3 /CUMM (0.0-0.7); ABSOLUTE GRANULOCYTE CT 8.5 /CUMM (1.4-6.5); ABSOLUTE MONOCYTE COUNT 0.6 /CUMM (0.10-0.60); BASOPHIL % 0.4 % (0.0-2.0); GRANULOCYTE % 81.2 % (42.2-75.2); MEAN CORPUSCULAR HGB 26.7 PG (27.0-31.0); MEAN CORPUSCULAR HGB CONC 33.1 G/DL (33.0-37.0); MEAN CORPUSCULAR VOLUME 80.6 FL (80.0-94.0); MEAN PLATELET VOLUME 7.4 FL (7.4-10.4); PLATELET COUNT 392 /CUMM (130-400); RBC DISTRIBUTION WIDTH 18.7 % (11.5-14.5); RED BLOOD CELL CT 3.35 /CUMM (4.70-6.10); WHITE BLOOD CELL COUNT 10.5 /CUMM (4.8-10.8)
--- NOTE | 2017-12-27 22:42 | ED GI/GU/ABDOMINAL COMPLAINT ---
See Addendum History of Present Illness General Chief Complaint: Male Genitourinary Problems Stated Complaint: ABD PAIN, CAN'T URINATE Source: patient, old records Exam Limitations: poor historian Vital Signs & Intake/Output Vital Signs & Intake/Output Vital Signs Date Time Temp Pulse Resp B/P B/P Pulse O2 O2 Flow FiO2 Mean Ox Delivery Rate 12/28 0932 97.4 86 18 149/64 05/ 0930 86 18 149/64 99 Room Air 12/28 0726 97.4 84 16 189/80 99 Room Air 12/28 0111 97.7 90 24 187/90 100 Room Air 12/27 2330 98.0 91 26 170/88 100 Room Air 12/27 2200 100 Room Air 12/27 2132 98.7 93 28 167/86 100 Room Air ED Intake and Output 12/28 0000 12/27 1200 Intake Total Output Total Balance Patient 155 lb Weight Weight Reported by Patient Measurement Method Allergies Uncoded Allergies: "OPIATES" (Mild, HALLUCINATIONS 12/02/17) Reconcile Medications Amlodipine Besylate 5 MG TABLET 1 TAB PO DAILY Hypertension (Reported) Atorvastatin Calcium 20 MG TABLET 1 TAB PO DAILY Heart Health (Reported) Diltiazem HCl (Diltiazem 24HR ER) 120 MG CAP.ER.24H 1 CAP PO DAILY PVC ( Reported) Ferrous Sulfate 325 MG (65 MG IRON) TABLET 1 TAB PO DAILY RLS (Reported) Lidocaine (Lidoderm) 5 % ADH..PATCH 1 PAT EXT DAILY BACK PAIN Metoprolol Succ XL (Toprol Xl) 50 MG TAB 50 MG PO DAILY blood pressure Midodrine HCl 5 MG TABLET 1 TAB PO TID ORTHOSTASIS (Reported) Omeprazole 40 MG CAPSULE. 1 CAP PO DAILY gastro protection . Triage Note: PT BIBA FROM HOME C/O INABILITY TO URINATE, DEFECATE AND ASSOCIATED ABDOMINAL PAIN. PT STATES HE DOESN'T REMEMBER THE LAST TIME HE WAS ABLE TO URINATE. 'I TRIED TO MOVE MY BOWELS ALL DAY AND I COULDN'T GO AND THEN I COULDN'T PEE ANYMORE" RICO PLACED, 600 CC'S YELLOW URINE OUT. STATES MOVED BOWELS YESTERDAY. RONDA Rosas AT BEDSIDE TO JACQUES PT. DARK STOOL IN TASHA AREA. GUIAC POS. O2 SAT 100% ON RA. HR 93 Triage Nurses Notes Reviewed? yes Onset: Abrupt Duration: day(s): (1), constant, continues in ED, getting worse Timing: single episode today Quality/Severity: cramping, fullness Severity Numbers: 7 Location: generalized abdomen, RECTUM Radiation: no radiation Activities at Onset: none Prior Abdominal Problems: similar symptoms No Modifying Factors: none Associated Symptoms: abdominal pain HPI: 77-year-old male past medical history hypertension, CVA, chronic kidney disease, orthostatic hypotension, anemia presents for evaluation of difficulty urinating constipation and abdominal pain. Patient states that he is unsure when he had his last bowel movement and when he urinated last. He states he does not think he urinated today he states he may have urinated last night. He is unsure when his last bowel movement was. He has a history of constipation. He states that he has developed inability to urinate and diffuse abdominal pain today. He also reports pain in his rectum. He states he feels he needs to go the bathroom but cannot. He denies any bright red blood per rectum or melena. He was recently discharged from the hospital after being seen with orthostatic hypotension dizziness and multiple falls. He lives at home with a friend. He denies nausea vomiting fever chest pain or shortness of breath. He has not yet followed up with GI since being discharged. (Crispin King) Past History Travel History Traveled to [place] past 21 day No Medical History Any Pertinent Medical History? see below for history Neurological: CVA EENT: NONE Cardiovascular: hypertension Respiratory: NONE Gastrointestinal: constipation Hepatic: CHOLY,APPY Renal: chronic kidney disease Musculoskeletal: L4 DISC Psychiatric: NONE Endocrine: NONE Blood Disorders: NONE Cancer(s): NONE BRIM POUNCER/Reproductive: NONE History of MRSA: No History of VRE: No History of CDIFF: No Influenza Vaccine: 06/27/17 Surgical History Surgical History: aaa REPAIR RIGHT ENDARTERECTOMY Psychosocial History Who do you live with [facility] at Home Nursing What is your primary language Nepalese Tobacco Use: Quit >30 days ago ETOH Use: denies use Family History Hx Contributory? No (Crispin King) Review of Systems Review of Systems Constitutional: Reports: no symptoms. EENTM: Reports: no symptoms. Respiratory: Reports: no symptoms. Cardiovascular: Reports: no symptoms. GI: Reports: see HPI, abdominal pain, constipation. Genitourinary: Reports: see HPI. Musculoskeletal: Reports: no symptoms. Skin: Reports: no symptoms. Neurological/Psychological: Reports: no symptoms. Hematologic/Endocrine: Reports: no symptoms. Immunologic/Allergic: Reports: no symptoms. All Other Systems: Reviewed and Negative (Crispin King) Physical Exam Physical Exam General Appearance: well developed/nourished, no apparent distress, alert, awake Head: atraumatic, normal appearance Eyes: Bilateral: normal appearance, PERRL, EOMI. Ears, Nose, Throat, Mouth: moist mucous membrane Neck: normal inspection, supple, full range of motion Respiratory: normal breath sounds, chest non-tender, no respiratory distress, lungs clear Cardiovascular: regular rate/rhythm, normal peripheral pulses Peripheral Pulses: 2+ radial (R), 2+ radial (L) Gastrointestinal: normal bowel sounds, soft, no organomegaly, tenderness ( DIFFUSE) Rectal: normal inspection, normal rectal tone, heme positive stool, DARK BROWN STOOL HEME POSITIVE NO GROSS BLOOD Back: normal inspection, normal range of motion Extremities: normal range of motion Neurologic/Psych: no motor/sensory deficits, awake, alert, oriented x 3, normal gait, normal mood/affect Skin: intact, normal color, warm/dry Core Measures ACS in differential dx? No Sepsis Present: No Sepsis Focused Exam Completed? No (Crispin King) Progress Differential Diagnosis: AAA, appendicitis, biliary colic, bowel obstruction, cholecystitis, diverticulitis, gastritis, hepatitis, ischemic bowel, inflamm bowel dis, ureterolithiasis, urinary retention, CONSTIPATION, FECAL IMPACTION Plan of Care: Orders Procedure Date/time Status Regular Diet 12/28 B Active PT Evaluate & Treat 12/28 012 Active CASE MANAGEMENT CONSULT 12/28 0128 Active Theraputic Activities 15 Min 12/28 UNK Complete MOBILITY GOAL STATUS 12/28 UNK Complete MOBILITY CURRENT STATUS 12/28 UNK Complete PT EVAL LOW COMPLEX 20 MIN 12/28 UNK Complete MISTAKE 12/27 2331 Active Enema 12/27 2256 Active Rico, Insertion/Removal/Asses 12/28 2139 Active CULTURE,URINE 12/28 2139 Active URINALYSIS 12/28 2139 Complete TROPONIN LEVEL 12/27 2138 Complete PARTIAL THROMBOPLASTIN TIME 12/27 2138 Complete PROTHROMBIN TIME 12/27 2138 Complete LACTIC ACID 12/27 2138 Complete COMPREHENSIVE METABOLIC PANEL 12/27 2138 Complete CBC WITHOUT DIFFERENTIAL 12/27 2138 Complete EKG 12/27 2138 Active TYPE & SCREEN (NOT X-MATCH) 12/27 2138 Complete Current Medications Sig/Som Start time Last Medication Dose Stop Time Status Admin Amlodipine Besylate 5 MG DAILY 12/28 899 UNVr 12/28 (Norvasc) 09 Atorvastatin Calcium 20 MG DAILY 12/28 899 UNVr 12/28 (Lipitor) 09 Diltiazem HCl 120 MG DAILY 12/28 899 UNVr 12/28 (Cardizem CD) 930 Metoprolol Succinate 50 MG DAILY 12/28 899 UNVr 12/28 (Toprol Xl) 09 Laboratory Tests 12/28/17 0039: Lactic Acid Cancelled 12/27/172214: Anion Gap 12, Estimated GFR 20 L, BUN/Creatinine Ratio 19.0, Glucose 98, Lactic Acid 1.0, Calcium 9.6, Total Bilirubin 0.4, AST 11 L, ALT 18 L, Alkaline Phosphatase 102, Troponin I 0.02, Total Protein 7.4, Albumin 4.0, Globulin 3.4, Albumin/Globulin Ratio 1.2, PT 12.4, INR 1.14, APTT 29, CBC w Diff NO MAN DIFF REQ, RBC 3.35 L, MCV 80.6, MCH 26.7 L, MCHC 33.1, RDW 18.7 H, MPV 7.4, Gran % 81.2 H, Lymphocytes % 9.6 L, Monocytes % 5.8, Eosinophils % 3.0, Basophils % 0.4, Absolute Granulocytes 8.5 H, Absolute Lymphocytes 1.0 L, Absolute Monocytes 0.6, Absolute Eosinophils 0.3, Absolute Basophils 0 12/27/172149: Urinalysis LIGHT H, Urine Color YEL, Urine Clarity CLEAR, Urine pH 6.0, Ur Specific [place] 1.015, Urine Protein 30 H, Urine Ketones NEG, Urine Nitrite NEG, Urine Bilirubin NEG, Urine Urobilinogen 0.2, Ur Leukocyte Esterase NEG, Ur Microscopic SEDIMENT EXAMINED, Ur Epithelial Cells MOD H, Urine Hemoglobin NEG, Urine Glucose NEG Microbiology 12/27 2149 URINE ROUT: Urine Culture - RES Patient seen and evaluated. He states he is unable to urinate. He has subsequent pubic tenderness. A Rico catheter was placed and drained out 600 mL of urine. The Rico will be left in place patient follow up with urology. He also reports he has not had a bowel movement. He does not remember when the last time was. He is heme positive. A review from his previous chart shows that the laceration was also heme positive and was told to follow up with GI. His hemoglobin currently is stable at 8.9. No gross blood. Vital signs are also stable. He has no chest pain or shortness of breath. A CT scan was obtained which showed a large amount of stool in the colon rectum. Patient was given a soapsuds enema and was able to pass a large amount of stool reports that he no longer has any pain. PTS creatinine is slightly above normal at 3. He usually is in the twos. A liter normal saline was ordered. Patient will be ambulated in the emergency department after he has a bowel movement. If he has a steady gait he'll be discharged home otherwise he may need short-term rehabilitation. Patient was able to have a large bowel movement after the soapsuds enema. He did report complete resolution of abdominal and rectal pain. He was attended to be evaluated in the emergency department however felt very dizzy and wasn't able to really at his baseline. He lives at home with his girlfriend does not feel safe going home. Patient be held over in the emergency department overnight for physical therapy evaluation in the morning. Case discussed with Dr. CARLOS and he agrees Diagnostic Imaging: Viewed by Me: Radiology Read, CT Scan. Discussed w/RAD: Radiology Read, CT Scan. Radiology Impression: PATIENT: PILI LINDSEY PRESENT AGE: 77 PATIENT ACCOUNT NO: [id number] : 39 LOCATION: [facility] ORDERING PHYSICIAN: Crispin BOND SERVICE DATE: 12/27/17 EXAM TYPE: CAT - CT ABD & PELVIS W/O IV CONTRAS EXAMINATION: CT ABDOMEN AND PELVIS WITHOUT CONTRAST CLINICAL INFORMATION: Rectal and lower abdominal pain COMPARISON: 10/17/2017 TECHNIQUE: Multidetector volumetric imaging was performed from the superior aspect of the liver through the pubic symphysis. Sagittal and coronal reformatted images were obtained on the technologist's workstation. DLP: 295 mGy -cm FINDINGS: LUNG BASES: The lung bases are clear. Coronary artery calcifications are noted. LIVER, GALLBLADDER, AND BILIARY TREE: The liver is normal in size, shape, and attenuation. No focal hepatic lesion or biliary ductal dilatation is present. Cholecystectomy. PANCREAS: Unremarkable. SPLEEN: Unremarkable. ADRENAL GLANDS: Unremarkable. KIDNEYS AND URETERS: The kidneys are normal in size, shape, and attenuation. No hydronephrosis, hydroureter, or calculi seen. No perinephric stranding. Bilateral vascular calcifications. Unchanged appearance of right-sided renal cysts. BLADDER: Decompressed with a Rico catheter in place. GASTROINTESTINAL TRACT: Stomach is unremarkable. The small bowel is normal in caliber. There is no obstruction. Fecalization of the distal ileum noted suggesting slow transit. There is a moderate colonic stool burden, with a prominent stool ball seen in the rectum. No colonic wall thickening. Diverticulosis of the sigmoid colon without diverticulitis. No free air. No free fluid. ABDOMINAL WALL: No significant hernia is appreciated. There is no perirectal abscess noted. LYMPH NODES: Normal. VASCULAR: There are biiliac stent graft is again noted. Abdominal aortic aneurysm appears unchanged, measuring up to 7.3 cm in AP dimension. PELVIC VISCERA: Unremarkable. OSSEOUS STRUCTURES: No acute or suspicious osseous abnormality. Multilevel degenerative changes of the spine. The right posterior 10th and 11th rib fractures are again noted. IMPRESSION: No acute inflammatory changes of the abdomen or pelvis. Moderate colonic stool burden with prominent stool ball present in the rectum. No evidence of perirectal abscess. Diverticulosis without evidence of diverticulitis. DICTATED BY: Loy Tao MD DATE/TIME DICTATED:12/27/172230 ODD JOB WORKER:ALECIA DATE/TIME TRANSCRIBED:12/27/172230 CONFIDENTIAL, DO NOT COPY WITHOUT APPROPRIATE AUTHORIZATION. CXR Impression: PATIENT: PILI LINDSEY PRESENT AGE: 77 PATIENT ACCOUNT NO: [id number] : 39 LOCATION: [facility] ORDERING PHYSICIAN: Crispin BOND SERVICE DATE: 12/27/17 EXAM TYPE: RAD - XRY-PORTABLE CHEST XRAY EXAMINATION: XR PORTABLE CHEST CLINICAL INFORMATION: Shortness of breath. Abdominal pain. COMPARISON: 12/01/2017 TECHNIQUE: Portable frontal view of the chest was obtained. FINDINGS: The lungs are well expanded. There is no focal consolidation, edema, or effusion. No pneumothorax. The cardiomediastinal silhouette is within normal limits. No acute osseous abnormality. IMPRESSION: No acute pulmonary findings. DICTATED BY: Loy Tao MD DATE/TIME DICTATED: 12/27/172307 ODD JOB WORKER:ALECIA DATE/TIME TRANSCRIBED:12/27/172307 CONFIDENTIAL, DO NOT COPY WITHOUT APPROPRIATE AUTHORIZATION. <Electronically signed in Other Vendor System> SIGNED BY: Loy Tao MD 12/27/17 2314 Initial ED EKG: normal sinus rhythm, no ST T wave changes Hand-Off Endorsed To: Seferino Carlos MD Endorsed Time: 131 Pending: consult (PT) (Crispin King) Repeat EKG: unchanged Rhythm Strip: normal sinus rhythm Hand-Off Endorsed To: Anand Mclean DO Endorsed Time: 07 Pending: other (case mgmt,PT for STR) (Seferino Carlos MD) Departure Departure Disposition: STILL A PATIENT Condition: Stable Referrals: Darrian FLOREZ,Yogi Paez MD,Golden Reynolds (PCP/Family) Additional Instructions: Follow-up with Dr. Paez urologist as soon as possible. Keep Rico catheter in place until you see the urologist. He also need to see a GI doctor. Follow-up with Dr. Nino as soon as possible. Increase YOUr fluid and fiber intake. Monitor symptoms return anytime with any concerns. Departure Forms: Customer Survey General Discharge Information (Crispin King) Departure Clinical Impression Primary Impression: Gait instability Secondary Impressions: Constipation Qualifiers: Constipation type: unspecified constipation type Qualified Code: K59.00 - Constipation, unspecified Urinary retention (Seferino aCrlos MD) Departure Comments 12/28/17 9:30 AM The patient was signed out to me by Dr. Carlos at 7 AM. He initially presented for urinary retention. He was found to have significant gait instability and felt to be unstable for discharge home. He is pending evaluation by physical therapy and case management. (Anand Mclean DO)
[2017-12-27 22:45] LABS: PT 12.4 SEC (9.4-12.5); PTT 29 SEC (25-37)
--- NOTE | 2017-12-27 23:14 | RADIOLOGY REPORT ---
EXAMINATION: XR PORTABLE CHEST CLINICAL INFORMATION: Shortness of breath. Abdominal pain. COMPARISON: 12/01/2017 TECHNIQUE: Portable frontal view of the chest was obtained. FINDINGS: The lungs are well expanded. There is no focal consolidation, edema, or effusion. No pneumothorax. The cardiomediastinal silhouette is within normal limits. No acute osseous abnormality. IMPRESSION: No acute pulmonary findings.
[2017-12-28 14:16] VITALS: BP 146/82
== END 2017-12-28 14:17 ==
LOC: ERH 21:13
PROVIDERS: Physician Assistant Medical
DX: K59.00 Constipation, unspecified (principal); R26.9 Unspecified abnormalities of gait and mobility
CPT/HCPCS: 71045; 74176; 81001; 87086; 93005; 93010; 96361; 96365; 97161-GP; 97530-GP; G8978-GP; G8979-GP; J0131